=== PATIENT | female | born 1995 | race Caucasian/White ===

== ENCOUNTER 2020-01-14 20:40 | Inpatient (IN) | payer BC, SELFPAY ==
[2020-01-14] VITALS (13 sets, daily range): BP systolic 118–133; BP diastolic 73–89; PULSE 78–102; TEMP 37.3; BMI 37.8
[2020-01-14 21:22] LABS: Basophils Percent Auto 0.4 % (0.2-1.2); Eosinophils Absolute Auto 0.1 K/mm3 (0-0.3); Eosinophils Percent Auto 0.8 % (0-4.4); Hematocrit 33.7 % (37.0-47.0); Hemoglobin 11.6 g/dL (12.0-15.0); Immature Granulocyte Absolute 0.06 K/mm3 (0.00-0.031); Immature Granulocyte Percent A 0.6 % (0-0.5); Lymphocytes Absolute Auto 1.82 K/mm3 (0.9-3.2); Lymphocytes Percent Auto 17.1 % (18.3-44.2); Mean Corpuscular HGB Conc 34.4 g/dl (32-36); Mean Corpuscular Hemoglobin 30.5 pg (26-34); Mean Corpuscular Volume 88.7 fl (80-100); Monocytes Absolute Auto 0.8 K/mm3 (0.1-0.6); Monocytes Percent Auto 7.7 % (2.6-8.5); Neutrophils Absolute Auto 7.8 K/mm3 (1.3-6.7); Neutrophils Percent Auto 73.4 % (45.5-73.1); Platelet Count Result 186 k/mm3 (150-375); Red Cell Distribution Width 13.7 % (11.5-14.5); White Blood Count 10.7 K/mm3 (4.5-10.0)
--- NOTE | 2020-01-14 21:29 | LDADM ---
This patient, Drake Aiken, was admitted to Labor/Delivery/Recovery 106 on 01/14/20 at 20:40. Plans for labor, pain management and were discussed with patient. Patient/family oriented to hospital policies and general routines including ID bracelet, bed and alarms, visiting hours, pain management, procedures, bathroom and other care routines, personal items, smoking policy, room service/diet and guest tray routines, security routines, and visiting hours. Patient/Family are encouraged to report perceived risks to care and to ask questions if they do not understand what they are told or what they should do. See OBIX for further documentation.
[2020-01-15] VITALS (236 sets, daily range): BP systolic 75–141; BP diastolic 43–88; PULSE 67–131; RESP 16; TEMP 36.6–38.6; O2SAT 96–100
[2020-01-15] MEDS: LACTATED RINGERS 1,000 ML 125 ML IV CONT ×4 (00:41→12:27)
[2020-01-15] MEDS: OXYTOCIN 30 UNITS/NS 500 ML 30 UNITS/500 ML BAG 6 UNITS IV CONT (00:42)
[2020-01-15] MEDS: ACETAMINOPHEN 325 MG TABLET 650 MG PO (01:20)
--- NOTE | 2020-01-15 02:13 | P.PNAN_ITS ---
Anes - Eval Pre Procedure Procedure: labor epidural Date/Time: 01/15/20 02:13 Surgeon: Brittany Preop Diagnosis: Labor pain Pre Op Diagnosis: Leaking Fluid Patient Data Age: 24 Gender: F Height: 1.63 m Weight: 100 kg Last Vital Signs Temp 37.4 C 01/15/20 00:30 Pulse 87 01/15/20 02:13 BP 119/66 01/15/20 02:13 Pulse Ox 98 01/15/20 02:06 Allergies Allergy/AdvReac Type Severity Reaction Status Date / Time No Known Allergies Allergy Verified 12/30/19 14:30 Home Medications Medication Instructions Recorded Confirmed Type PNV cmb#95-ferrous fumarate-FA 1 tablet PO 12/30/19 History [] Laboratory Tests 01/14/20 01/14/20 01/14/20 21:09 21:09 21:09 WBC 10.7 K/mm3 H K/mm3 (4.5-10.0) RBC 3.80 M/mm3 L M/mm3 (4.2-5.4) Hgb 11.6 g/dL L g/dL (12.0-15.0) Hct 33.7 % L % (37.0-47.0) MCV 88.7 fl fl (80-100) MCH 30.5 pg pg (26-34) MCHC 34.4 g/dl g/dl (32-36) RDW 13.7 % % (11.5-14.5) Plt Count 186 k/mm3 k/mm3 (150-375) MPV 11.0 fl H fl (7.4-10.4) Immature Gran % (Auto) 0.6 % H % (0-0.5) Neut % (Auto) 73.4 % H % (45.5-73.1) Lymph % (Auto) 17.1 % L % (18.3-44.2) [place] % (Auto) 7.7 % % (2.6-8.5) Eos % (Auto) 0.8 % % (0-4.4) Baso % (Auto) 0.4 % % (0.2-1.2) Lymph # (Auto) 1.82 K/mm3 K/mm3 (0.9-3.2) [place] # (Auto) 0.8 K/mm3 H K/mm3 (0.1-0.6) Eos # (Auto) 0.1 K/mm3 K/mm3 (0-0.3) Baso # (Auto) 0.0 K/mm3 K/mm3 (0.0-0.1) Abs Immat Gran (auto) 0.06 K/mm3 H K/mm3 (0.00-0.031) Absolute Neuts (auto) 7.8 K/mm3 H K/mm3 (1.3-6.7) Absolute Nucleated RBC 0.0 K/mm3 K/mm3 (0.0-0.012) Nucleated RBC % 0.0 % % (0.0-0.2) RPR Pending Blood Type O Positive Antibody Screen Negative Patient hx anesthesia problems: none Family hx anesthesia problems: none [facility] Family History Family History (Updated 12/30/19 @ 14:32 by Simin Parsons RN) Grandparent Family history of malignant neoplasm of kidney Diabetes mellitus Hypertension Father Patient's father is in good health Sibling Patient's brother is in good health Social History Social History Smoking status: Never smoker Alcohol intake: never Substance use: never Spiritual care concerns: No Exam Day of Procedure 01/15/20 02:13 Patient weight: obese
--- NOTE | 2020-01-15 07:16 | PM.IMHP ---
H&P: HPI History of Present Illness Chief complaint: Leaking Fluid Narrative: Drake Aiken is a 24 year old female the whose last menstrual period is unknown, whose EDC is 01/29/2020 confirmed by 7 week ultrasound presented with spontaneous rupture membranes. Her was complicated by an early twin the advanced. Her is been otherwise unremarkable. Her 1hour GCT was abnormal but she was for over 4 normal under 3hour. She is negative for group B strep Review of Systems Review of Systems: All systems reviewed & are unremarkable except as noted in HPI and below PMFSH Family History Family History Grandparent Family history of malignant neoplasm of kidney Diabetes mellitus Hypertension Father Patient's father is in good health Sibling Patient's brother is in good health Social History Social History Smoking status: Never smoker Alcohol intake: never Substance use: never Spiritual care concerns: No Meds Home Medications and Allergies Home Medications Medication Instructions Recorded Confirmed Type PNV cmb#95-ferrous fumarate-FA 1 tablet PO 12/30/19 History [] Allergies Allergy/AdvReac Type Severity Reaction Status Date / Time No Known Allergies Allergy Verified 12/30/19 14:30 Vital Signs Vital Signs - 24 hr 01/14/20 21:00 01/14/20 21:07 01/14/20 21:15 Temperature 99.1 F Pulse Rate 93 102 H Blood Pressure 129/80 133/89 Pulse Oximetry 01/14/20 21:30 01/14/20 21:45 01/14/20 22:00 Temperature Pulse Rate 102 H 97 98 Blood Pressure 126/82 133/80 128/79 Pulse Oximetry 01/14/20 22:15 01/14/20 22:30 01/14/20 22:45 Temperature Pulse Rate 92 91 78 Blood Pressure 127/81 121/73 118/73 Pulse Oximetry 01/14/20 23:00 01/14/20 23:15 01/14/20 23:30 Temperature Pulse Rate 88 93 86 Blood Pressure 124/77 123/79 125/80 Pulse Oximetry 01/14/20 23:45 01/15/20 00:00 01/15/20 00:15 Temperature Pulse Rate 85 87 81 Blood Pressure 126/75 120/75 117/72 Pulse Oximetry 01/15/20 00:30 01/15/20 01:57 01/15/20 02:00 Temperature 99.3 F 99.5 F Pulse Rate 90 Blood Pressure 138/85 Pulse Oximetry 98 01/15/20 02:02 01/15/20 02:03 01/15/20 02:05 Temperature Pulse Rate 80 95 Blood Pressure 122/61 121/67 Pulse Oximetry 100 01/15/20 02:06 01/15/20 02:07 01/15/20 02:08 Temperature Pulse Rate 79 83 Blood Pressure 119/69 125/64 Pulse Oximetry 98 01/15/20 02:10 01/15/20 02:13 01/15/20 02:15 Temperature Pulse Rate 90 87 79 Blood Pressure 123/67 119/66 114/64 Pulse Oximetry 01/15/20 02:17 01/15/20 02:20 01/15/20 02:23 Temperature Pulse Rate 87 79 86 Blood Pressure 127/63 128/64 131/73 Pulse Oximetry 01/15/20 02:25 01/15/20 02:27 01/15/20 02:30 Temperature Pulse Rate 86 77 83 Blood Pressure 122/74 117/74 122/70 Pulse Oximetry 01/15/20 02:33 01/15/20 02:35 01/15/20 02:40 Temperature Pulse Rate 79 81 83 Blood Pressure 133/66 131/67 127/73 Pulse Oximetry 01/15/20 02:42 01/15/20 02:45 01/15/20 02:48 Temperature Pulse Rate 90 94 83 Blood Pressure 124/71 125/65 115/51 L Pulse Oximetry 01/15/20 02:50 01/15/20 02:52 01/15/20 02:55 Temperature Pulse Rate 97 84 92 Blood Pressure 115/61 112/77 119/57 L Pulse Oximetry 01/15/20 02:58 01/15/20 03:00 01/15/20 03:03 Temperature Pulse Rate 92 88 78 Blood Pressure 108/48 L 120/62 107/53 L Pulse Oximetry 01/15/20 03:05 01/15/20 03:09 01/15/20 03:11 Temperature Pulse Rate 82 80 84 Blood Pressure 115/62 114/55 L 103/56 L Pulse Oximetry 01/15/20 03:15 01/15/20 03:20 01/15/20 03:23 Temperature Pulse Rate 96 Blood Pressure 121/70 Pulse Oximetry 98 96 01/15/20 03:30 01/15/20 03:32 01/15/20 03:35 Temperature 99.2 F Pulse Rate 94 84 97
[2020-01-15] MEDS: AMPICILLIN 2 GM/NS 100 ML 2 GM/100 ML BAG IVPB (08:39)
[2020-01-15 09:25] LABS: Rapid Plasma Reagin Non-Reactive (NonReactive)
--- NOTE | 2020-01-15 11:29 | P.PNOB_ITS ---
OB - PN: Subj Subjective Date/time seen: 01/15/20 11:29 cx 7.5/100/-2 by rn exam temp better fhts ok OB - PN: Obj Data Labs CBC & Chem 7: 01/14/20 21:09 Labs: Laboratory Results - last 24 hr 01/14/20 01/14/20 01/14/20 21:09 21:09 21:09 WBC 10.7 H RBC 3.80 L Hgb 11.6 L Hct 33.7 L MCV 88.7 MCH 30.5 MCHC 34.4 RDW 13.7 Plt Count 186 MPV 11.0 H Immature Gran % (Auto) 0.6 H Neut % (Auto) 73.4 H Lymph % (Auto) 17.1 L [place] % (Auto) 7.7 Eos % (Auto) 0.8 Baso % (Auto) 0.4 Lymph # (Auto) 1.82 [place] # (Auto) 0.8 H Eos # (Auto) 0.1 Baso # (Auto) 0.0 Abs Immat Gran (auto) 0.06 H Absolute Neuts (auto) 7.8 H Absolute Nucleated RBC 0.0 Nucleated RBC % 0.0 RPR Non-reactive Blood Type O Positive Antibody Screen Negative OB - PN A/P Time Spent With Patient Time: Total time spent is greater than 50% in coordination of care (as documented) at patient's floor/unit and/or counseling patient:
[2020-01-15] MEDS: ONDANSETRON INJ 4 MG/2 ML VIAL IV PUSH (12:27)
[2020-01-15] MEDS: AMPICILLIN 1 GM/NS 50 ML 1 GM/50 ML BAG IVPB (12:27)
--- NOTE | 2020-01-15 16:19 | P.PNOB_ITS ---
OB - PN: Subj Subjective Date/time seen: 01/15/20 16:19 cx complete pushing fhts ok OB - PN: Obj Data Labs CBC & Chem 7: 01/14/20 21:09 Labs: Laboratory Results - last 24 hr 01/14/20 01/14/20 01/14/20 21:09 21:09 21:09 WBC 10.7 H RBC 3.80 L Hgb 11.6 L Hct 33.7 L MCV 88.7 MCH 30.5 MCHC 34.4 RDW 13.7 Plt Count 186 MPV 11.0 H Immature Gran % (Auto) 0.6 H Neut % (Auto) 73.4 H Lymph % (Auto) 17.1 L [place] % (Auto) 7.7 Eos % (Auto) 0.8 Baso % (Auto) 0.4 Lymph # (Auto) 1.82 [place] # (Auto) 0.8 H Eos # (Auto) 0.1 Baso # (Auto) 0.0 Abs Immat Gran (auto) 0.06 H Absolute Neuts (auto) 7.8 H Absolute Nucleated RBC 0.0 Nucleated RBC % 0.0 RPR Non-reactive Blood Type O Positive Antibody Screen Negative OB - PN A/P Time Spent With Patient Time: Total time spent is greater than 50% in coordination of care (as docume nted) at patient's floor/unit and/or counseling patient:
--- NOTE | 2020-01-15 16:41 | PM.OBPRVD ---
OB - Delivery Note Procedure Delivery date: 01/15/20 Intrapartal events: None Induction method: none Delivery augmentation: pitocin Delivery monitor: external FHT Route of delivery: Laceration description: Perineal - 2nd Degree Delivery repair: vicryl Specimen: No Estimated blood loss (mL): 157 Anesthesia type: Epidural Disposition: floor Baby Date of : 01/15/20 Time of : 16:26 Weeks of gestation at delivery: 38 gender: Female Weight (pounds): 6 Weight (ounces): 6 presentation: vertex position: Right Occiput Anterior Placenta delivery description: Spontaneous cord vessel description: 3 Vessels and Around Body x2 score one minute: 8 score five minutes: 9
--- NOTE | 2020-01-15 16:44 | PM.DS ---
DS: Diagnosis Admitting Diagnosis Admitting Diagnosis: term DS: Summary Time Spent with Patient Time attestation: Total time spent providing and/or coordinating discharge services: Exam Const: General: no acute distress Eyes: General: appearance normal, both eyes and all related structures Neck: Neck: supple and no JVD Thyroid: thyroid normal Resp: Effort & Inspection: normal respiratory effort Auscultation: clear to auscultation bilaterally Cardio: Rate: regular rate Rhythm: regular rhythm GI: Inspection: non-distended GI Palp: Yes Soft to palpation, No Tenderness to palpation present (GI) and No Guarding due to palpation present (GI) Auscultation: normal bowel sounds : General: Yes bladder normal to palpation External Female Exam: normal external appearance Speculum Exam - Vagina: normal vaginal discharge and No vaginal bleeding Speculum Exam - Cervix: nontender Bimanual exam- vagina & uterus: bladder normal to palpation and No Cervical tenderness present OB/external & speculum: No vaginal bleeding Skin: General skin exam: no rashes or lesions noted Extrem: General: normal to inspection and no edema Psych: Mental Status: mental status grossly normal Affect: normal affect DS: Data Data Completed and Pending Labs on day of discharge: Labs from last 24 hours 01/14/20 01/14/20 01/14/20 21:09 21:09 21:09 WBC 10.7 H RBC 3.80 L Hgb 11.6 L Hct 33.7 L MCV 88.7 MCH 30.5 MCHC 34.4 RDW 13.7 Plt Count 186 MPV 11.0 H Immature Gran % (Auto) 0.6 H Neut % (Auto) 73.4 H Lymph % (Auto) 17.1 L [place] % (Auto) 7.7 Eos % (Auto) 0.8 Baso % (Auto) 0.4 Lymph # (Auto) 1.82 [place] # (Auto) 0.8 H Eos # (Auto) 0.1 Baso # (Auto) 0.0 Abs Immat Gran (auto) 0.06 H Absolute Neuts (auto) 7.8 H Absolute Nucleated RBC 0.0 Nucleated RBC % 0.0 RPR Non-reactive Blood Type O Positive Antibody Screen Negative Discharge Plan Discharge Attending physician on discharge: Andrea Packer Discharging Clinician: Andrea Packer Patient Disposition: Home Health Service Activity: may shower, no straining, may drive after 2 weeks and pelvic rest Diet: heart healthy Patient Instructions: Antibiotic Form Stand Alone Forms: General Discharge Information Follow-up/Referrals: Andrea Packer MD [Physician] - Discharge Medications: Continued PNV cmb#95-ferrous fumarate-FA [] 28 mg iron- 800 mcg Tablet 1 tablet PO RF: 0 Date of admission: 01/14/20 20:40 Primary Care Provider: UNKNOWN,DOCTOR Admitting Provider: Andrea Packer Attending physician on admission: Andrea Packer
[2020-01-15] MEDS: OXYTOCIN 30 UNITS/NS 500 ML 30 UNITS/500 ML BAG 125 UNITS IV CONT (16:47)
[2020-01-15] MEDS: IBUPROFEN 600 MG TABLET PO ×2 (17:00→23:26)
[2020-01-15] MEDS: BENZOCAINE 20% AER SPR (*SP) 56 GM CAN 1 SPRAY TOPICAL (18:54)
[2020-01-15] MEDS: WITCH HAZEL 40 PADS 1 PAD TOPICAL (18:54)
--- NOTE | 2020-01-15 19:14 | OBPPTRN ---
Patient transferred to post room # 282 via wheelchair with baby in bassinet. Support person present. Oriented to unit, room, information board, rooming in, admission packet and security measures. Patient verbalizes understanding.
--- NOTE | 2020-01-15 19:45 | PC.NURSE ---
removed vaginal packing at 1944 on 01/15/20
[2020-01-16] MEDS: IBUPROFEN 600 MG TABLET PO ×2 (04:49→14:53)
[2020-01-16 05:38] LABS: Hematocrit 27.4 % (37.0-47.0); Hemoglobin 9.2 g/dL (12.0-15.0)
--- NOTE | 2020-01-16 06:48 | P.PNOB_ITS ---
OB - PN: Subj Subjective Date/time seen: 01/16/20 06:48 Patient comments: no complaints and pain well controlled baby status: doing well and nursing well OB - PN: Obj Data Labs CBC & Chem 7: 01/16/20 04:47 Labs: Laboratory Results - last 24 hr 01/14/20 01/16/20 21:09 04:47 Hgb 9.2 L Hct 27.4 L RPR Non-reactive OB - PN A/P Plan day: 1 Plan: routine care, discharge home and follow up 6 weeks Time Spent With Patient Time: Total time spent is greater than 50% in coordination of care (as documented) at patient's floor/unit and/or counseling patient: Time with patient: less than 15 minutes Review of Systems Review of Systems: All systems reviewed & are unremarkable except as noted in HPI and below Exam Const: General: no acute distress Eyes: General: appearance normal, both eyes and all related structures Neck: Neck: supple and no JVD Thyroid: thyroid normal Resp: Effort & Inspection: normal respiratory effort Auscultation: clear to auscultation bilaterally Cardio: Rate: regular rate Rhythm: regular rhythm GI: Inspection: normal to inspection (fundus firm) : General: Yes bladder normal to palpation External Female Exam: normal external appearance Speculum Exam - Vagina: normal vaginal discharge and No vaginal bleeding Speculum Exam - Cervix: nontender Bimanual exam- vagina & uterus: bladder normal to palpation and No Cervical tenderness present OB/ external & speculum: No vaginal bleeding Skin: General skin exam: no rashes or lesions noted Extrem: General: normal to inspection and no edema Psych: Mental Status: mental status grossly normal Affect: normal affect
[2020-01-16 07:40] VITALS: BP 125/82; PULSE 90; RESP 18; TEMP 36.8; O2SAT 100
[2020-01-16] MEDS: MULTIVIT/MIN/PREN/FOL AC/IRON TABLET 1 TAB PO (08:15)
[2020-01-16] MEDS: DIBUCAINE 1% OINTMENT 30 GM TUBE 1 APPLIC TOPICAL (08:15)
[2020-01-16] MEDS: DOCUSATE SODIUM 100 MG CAPSULE PO ×2 (08:16→16:58)
[2020-01-16] MEDS: POLYSACCHARIDE IRON COMPLEX 150 MG CAPSULE PO ×2 (08:16→16:58)
--- NOTE | 2020-01-16 12:45 | PC.NURSE ---
Mother called out for assist with feeding. Mother states is sleepy and is unable to latch without shield. Mother is attempting to breast each feeding, supplementing and pumping. Discussed nipple shield precautions and possible complications. Instructions given on application and cleaning of shield. Patient able to return demonstration on proper application of shield. Discussed the need for regular pumping if infant continues to nurse with the shield. Patient verbalizes understanding. With shield in place is attempt to breast, mother is able to independently latch infant with appropriate positioning/alignment using nipple shield. is sleepy and makes a weak effort to suckle. Small amounts of formula to shield to entice to suckle. Short bursts of rhythmic draws noted. Mother denies any nipple discomfort, is feeding as required and waking to feed if needed. Infant continues with ineffective feeding and requires 20 mls supplementation after each . Mother will continue to pump and offer EBM as available as part of supplement. is currently meeting outcomes for weight, output, jaundice and feeding frequencies. Mother states she feels comfortable with current feeding plan of bottle/ at home. Reviewed transition to breast milk, signs of adequate intake, and engorgement/relief. Instructed to call ICP if intake/output less than required. Reviewed regular medications mother is taking. Information provided per [facility]. Reviewed community resources on the [facility] website and in the Mom/Baby guide. Information on outpatient services provided. Mother has no further questions at this time.
--- NOTE | 2020-01-16 12:45 | PC.NURSE ---
Mother is able to independently latch with appropriate positioning/alignment using nipple shield. She denies any nipple discomfort, is feeding as required and waking to feed if needed. Infant continues with ineffective feeding and requires 30 mls supplementation after each . Infant is more eager with attempts and duration. Mother will continue to pump and offer EBM as available as part of supplement. Infant is currently meeting outcomes for weight, output, jaundice and feeding frequencies. Mother states she feels comfortable with current feeding plan of bottle//pumping at home. Reviewed transition to breast milk, signs of adequate intake, and engorgement/relief. Instructed to call ICP if intake/output less than required. Reviewed regular medications mother is taking. Information provided per [facility]. Reviewed community resources on the [facility] website and in the Mom/Baby guide. Information on outpatient services provided. Mother has no further questions at this time. Discussed weaning from supplementation, advised feeding should be observed by ICP, WIC or appointment her with LC before discontinuing supplement.
--- NOTE | 2020-01-16 14:11 | WPDANLDPN2 ---
Anes-Prog Note L&D Date/Time: 01/16/20 14:11 Comfortable throughout: labor and delivery Neuraxial method: epidural Epidural/Spinal procedure site: clean & non-tender Neuro status: Neuro function grossly intact. Cardiovascular status: normal Respiratory status: normal Airway patency: baseline Mental status: baseline Post-Op hydration status: normal Vital Signs: Last Vital Signs Temp 36.8 C 01/16/20 07:40 Pulse 90 01/16/20 07:40 Resp 18 01/16/20 07:40 BP 125/82 01/16/20 07:40 Pulse Ox 100 01/16/20 07:40 I/O: Intake & Output 01/15/20 01/16/20 01/16/20 23:59 07:59 15:59 Intake Total 1650 Output Total 257 Balance 1393 Post-procedural complaints: none Patient feedback: Patient satisfied with anesthetic care.
[2020-01-16] MEDS: WITCH HAZEL 40 PADS 1 PAD TOPICAL (16:58)
[2020-01-16] MEDS: BENZOCAINE 20% AER SPR (*SP) 56 GM CAN 1 SPRAY TOPICAL (16:58)
[2020-01-18 09:51] VITALS: BP 141/94; PULSE 81; RESP 20; TEMP 37.2
== END 2020-01-16 19:40 | disposition home health service (06) | DRG 807 ==
LOC: ANHLDR 21:37 → ANHOB2 01-15 19:24
PROVIDERS: Admitting Provider Obstetrics & Gynecology; Visit Provider Obstetrics & Gynecology
DX: O69.82X0 Labor and delivery complicated by other cord entanglement, without compression, not applicable or unspecified (principal); Z37.0 Single live birth; Z3A.38 38 weeks gestation of pregnancy; O36.8330 Maternal care for abnormalities of the fetal heart rate or rhythm, third trimester, not applicable or unspecified; O70.1 Second degree perineal laceration during delivery
CPT/HCPCS: 36415; 85014; 85018; 85025; 86592; 86850; 86900; 86901; A9270; J0131; J0290; J2405; J2590; J2795; J7120

== ENCOUNTER 2022-05-16 23:56 | Emergency (ER) | payer BC, SELFPAY ==
[2022-05-17 00:09] VITALS: BP 149/90; PULSE 83; RESP 17; TEMP 36.5; O2SAT 100
--- NOTE | 2022-05-17 00:13 | ED.PREGNANCY ---
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 Reports she had a positive test a couple of days ago. She started to have some spotting today which turned into more heavy bleeding tonight. Dr. Josephine Baron is her OB. Denies fever, dysuria or vomiting. <MARCELINO Santo Last Filed: 05/17/22 01:17> Related Data Home medications: Home Medications Medication Instructions Recorded Confirmed vit no.95-ferrous 1 tablet PO 12/30/19 fumarate 28 mg-folic acid 800 mcg tablet () <Keerthi Moran PA-C - Last Filed: 05/17/22 01:17> Allergies/Adverse reactions: Allergies Allergy/AdvReac Type Severity Reaction Status Date / Time No Known Allergies Allergy Verified 05/02/20 08:12 <MARCELINO Santo Last Filed: 05/17/22 01:17> Review of Systems Review of Systems: CONSTITUTIONAL: Denies fever GASTROINTESTINAL: Reports pelvic cramping GENITOURINARY: Denies dysuria <MARCELINO Santo Last Filed: 05/17/22 01:17> All systems reviewed & are unremarkable except as noted in HPI and below <MARCELINO Santo Last Filed: 05/17/22 01:17> [facility] Past Medical History Medical History: Medical History (Updated 05/17/22 @ 01:12 by Keerthi Moran PA-C) History of hypothyroidism <Keerthi Moran PA-C - Last Filed: 05/17/22 01:17> Family History Family History: Family History Grandparent Family history of malignant neoplasm of kidney Diabetes mellitus Hypertension Father Patient's father is in good health Sibling Patient's brother is in good health <Keerthi Moran PA-C - Last Filed: 05/17/22 01:17> Social History Social History: Social History Smoking status: Never smoker Alcohol intake: never Substance use: never Spiritual care concerns: No <Keerthi Moran PA-C - Last Filed: 05/17/22 01:17> Exam Narrative: GENERAL: Well-appearing, well-nourished, and in no acute distress. HEAD: Normocephalic, atraumatic. EYES: EOMI. CHEST: Clear to auscultation. No respiratory distress. No wheezes rales or rhonchi HEART: Regular rate and rhythm. No murmur heard. Normal peripheral pulses. ABDOMEN: Soft, nontender, nondistended, normal active bowel sounds. EXTREMITIES: Normal range of motion. No edema. SKIN: Warm, dry, no rash. NEURO: No focal deficits. Alert and oriented x3. PSYCH: Normal mood and affect PELVIC: Normal external genitalia. Normal appearing cervix, closed. 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 [] <Thierry Lackey DO - Last Filed: 05/17/22 01:49> Vital Signs Vital signs: Vital Signs Temperature 97.7 F 05/17/22 00:09 Pulse Rate 83 05/17/22 00:09 Respiratory Rate 17 05/17/22 00:09 Blood Pressure 149/90 H 05/17/22 00:09 Pulse Oximetry 100 05/17/22 00:09 Oxygen Delivery Room Air 05/17/22 00:09 Temperature 97.7 F 05/17/22 00:09 Pulse Rate 86 05/17/22 01:33 Respiratory Rate 18 05/17/22 01:33 Blood Pressu
[2022-05-17 00:30] LABS: Basophils Absolute Auto 0.1 K/mm3 (0.0-0.1); Basophils Percent Auto 1.3 % (0.2-1.2); Eosinophils Absolute Auto 0.3 K/mm3 (0-0.3); Eosinophils Percent Auto 3.3 % (0-4.4); Hematocrit 45.5 % (37.0-47.0); Hemoglobin 14.8 g/dL (12.0-15.0); Immature Granulocyte Absolute 0.02 K/mm3 (0.00-0.031); Immature Granulocyte Percent A 0.2 % (0-0.5); Lymphocytes Absolute Auto 3.02 K/mm3 (0.9-3.2); Lymphocytes Percent Auto 33.6 % (18.3-44.2); Mean Corpuscular HGB Conc 32.5 g/dl (32-36); Mean Corpuscular Hemoglobin 29.1 pg (26-34); Mean Corpuscular Volume 89.6 fl (80-100); Mean Platelet Volume 9.8 fl (7.4-10.4); Monocytes Absolute Auto 0.7 K/mm3 (0.1-0.6); Monocytes Percent Auto 8.2 % (2.6-8.5); Neutrophils Absolute Auto 4.8 K/mm3 (1.3-6.7); Neutrophils Percent Auto 53.4 % (45.5-73.1); Platelet Count Result 257 k/mm3 (150-375); Red Blood Count 5.08 M/mm3 (4.2-5.4); Red Cell Distribution Width 13.4 % (11.5-14.5)
[2022-05-17 01:33] VITALS: BP 139/79; PULSE 86; RESP 18; O2SAT 98
== END 2022-05-17 01:36 | disposition home or self-care (01) ==
PROVIDERS: Physician Assistant; Emergency Provider Emergency Medicine; PCP Internal Medicine
DX: O20.9 Hemorrhage in early pregnancy, unspecified (principal); O99.281 Endocrine, nutritional and metabolic diseases complicating pregnancy, first trimester; E03.9 Hypothyroidism, unspecified; Z3A.00 Weeks of gestation of pregnancy not specified
CPT/HCPCS: 36415; 81025; 84702; 85025; 85461; 99284

== ENCOUNTER 2023-10-26 11:27 | Outpatient (CLI) | payer BC, SELFPAY ==
--- NOTE | ~2023-10-26 | XR_ITS ---
EXAMINATION: XR hysterosalpingogram DATE: 10/26/2023 12:05 INDICATION: Infertility TECHNIQUE: Multiple fluoroscopic images were obtained during contrast infusion into the endometrial c anal of the uterus by the primary physician. Fluoroscopy exposure time was 0.6 minutes. A total of 3 fluoroscopic images were recorded. Total DAP was 9.121 Gycm^2 FINDINGS: The uterine cavity demonstrates normal morphology. The fallopian tubes are normal in caliber and pat ent bilaterally. There is normal spillage of contrast into the peritoneum on both sides. IMPRESSION: 1. Normal hysterosalpingogram. Reviewed, dictated and finalized at location A. 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
== END 2023-10-26 11:28 | disposition home or self-care (01) ==
PROVIDERS: PCP Nurse Practitioner Family; Visit Provider Obstetrics & Gynecology
DX: N97.0 Female infertility associated with anovulation (principal)
CPT/HCPCS: 58340; 74740; Q9966

== ENCOUNTER 2024-03-19 11:08 | Emergency (ER) | payer OTHER, SELFPAY ==
[2024-03-19 11:35] VITALS: BP 142/101; PULSE 110; RESP 18; TEMP 36.7; O2SAT 100
--- NOTE | 2024-03-19 11:43 | ED.GENADULT ---
HPI - General Adult General Chief complaint: Unspecified Stated complaint: 7 weeks wants checked out Time Seen by Provider: 03/19/24 11:32 History of Present Illness HPI narrative: 28-year-old female present to the emergency department for evaluation of her current . Patient has had 2 miscarriages but is currently and is approximately 7 weeks . Patient did have outpatient ultrasound confirming an IUP by her OB Gyne. Patient states that she has anxiety related to her previous miscarriages so she did take another test today noticed that the color strep was transmission mechanic today than previous so patient became concerned. Patient has been having intermittent abdominal cramping but denies any current abdominal cramping. Patient denies any pain with her urination. Patient denies any current vaginal bleeding. Related Data Home Medications Medication Instructions Recorded Confirmed vit no.95-ferrous 1 tablet PO 12/30/19 fumarate 28 mg-folic acid 800 mcg tablet () Allergies Allergy/AdvReac Type Severity Reaction Status Date / Time No Known Allergies Allergy Verified 05/02/20 08:12 Review of Systems Review of Systems: All systems reviewed & are unremarkable except as noted in HPI and below PMFSH Past Medical History Medical History (Updated 03/19/24 @ 12:33 by Boom Lackey MD) History of hypothyroidism Family History Family History Grandparent Family history of malignant neoplasm of kidney Diabetes mellitus Hypertension Father Patient's father is in good health Sibling Patient's brother is in good health Social History Social History Smoking status: Never smoker Alcohol intake: never Substance use: never Spiritual care concerns: No Exam Narrative: APPEARANCE: Well appearing, no pain, no distress, well-nourished. HEAD: normocephalic, atraumatic. EYES: PERRLA/EOMI, conjunctivae clear. NOSE: Normal no drainage EARS:TMS clear with good light reflex. THROAT: Pharynx clear, no exudate. NECK: Supple. No adenopathy, no masses. RESPIRATORY: Airway patent, respirations nonlabored. Clear to auscultation bilaterally, no rales, rhonchi, wheezing. CARDIOVASCULAR: Regular rate and rhythm without murmurs rubs or gallops. ABDOMINAL: Soft, nontender, nondistended, normal bowel sounds MUSCULOSKELETAL: Moves all extremities. Strength/ROM intact, No edema, No calf tenderness. NEURO: Alert. Cranial nerves II through XII intact. SKIN: Warm, dry. Normal Color Course Vital Signs Vital signs: Vital Signs Temperature 98.1 F 03/19/24 11:35 Pulse Rate 110 H 03/19/24 11:35 Respiratory Rate 18 03/19/24 11:35 Blood Pressure 142/101 H 03/19/24 11:35 Pulse Oximetry 100 03/19/24 11:35 Temperature 98.1 F 03/19/24 11:35 Pulse Rate 110 H 03/19/24 11:35 Respiratory Rate 18 03/19/24 11:35 Blood Pressure 142/101 H 03/19/24 11:35 Pulse Oximetry 100 03/19/24 11:35 Medical Decision Making MDM Narrative Medical decision making narrative: 28-year-old female presenting to the emergency department for evaluation for concern of a transmission mechanic than expected test. Patient denies any vaginal bleeding or uterine cramping. Patient is afebrile with no leukocytosis and a stable hemoglobin of 14.4, no acute abnormalities on the patient's CMP. UA was positive for leuk esterase and did have high bacteria. Patient was started on Macrobid. Bedside ultrasound did show a pole within the uterus but transabdominally no heart rate was detected. Patient is approximately 7 weeks . Patient's beta hCG was greater than 15,000. Patient was updated the results of the workup was encouraged close follow-up with OB Gyne Differential Diagnosis Differential Diagnosis: Miscarriage, UTI, vaginal bleeding, early p
[2024-03-19 12:12] LABS: Basophils Percent Auto 0.4 % (0.2-1.2); Eosinophils Absolute Auto 0.1 K/mm3 (0-0.3); Eosinophils Percent Auto 0.9 % (0-4.4); Hematocrit 42.9 % (37.0-47.0); Hemoglobin 14.4 g/dL (12.0-15.0); Immature Granulocyte Absolute 0.03 K/mm3 (0.00-0.031); Immature Granulocyte Percent A 0.3 % (0-0.5); Lymphocytes Absolute Auto 1.52 K/mm3 (0.9-3.2); Lymphocytes Percent Auto 16.8 % (18.3-44.2); Mean Corpuscular HGB Conc 33.6 g/dl (32-36); Mean Corpuscular Hemoglobin 29.3 pg (26-34); Mean Corpuscular Volume 87.4 fl (80-100); Mean Platelet Volume 9.6 fl (7.4-10.4); Monocytes Absolute Auto 0.6 K/mm3 (0.1-0.6); Monocytes Percent Auto 6.8 % (2.6-8.5); Neutrophils Absolute Auto 6.8 K/mm3 (1.3-6.7); Neutrophils Percent Auto 74.8 % (45.5-73.1); Platelet Count Result 209 k/mm3 (150-375); Red Blood Count 4.91 M/mm3 (4.2-5.4); Red Cell Distribution Width 13.4 % (11.5-14.5); White Blood Count 9.1 K/mm3 (4.5-10.0)
[2024-03-19 12:18] LABS: Appearance Urine Cloudy (Clear); Bacteria Urine 2+ /hpf; Bilirubin Urine Negative (Negative); Blood Urine Negative (Negative); Color Urine Yellow (Yellow); Glucose Urine UA Negative (Negative); Ketones Urine Negative (Negative); Leukocyte Esterase Ur 1+ LEU/UL (Negative); Nitrate Urine Negative (Negative); Protein Urine Negative (Negative); Squamous Epithelial Cell Urine Moderate /hpf (Few); Urobilinogen Urine 0.2 mg/dL (<2.0); WBC Urine 21-50 /hpf (0-3); pH Urine 6.5 (5.0-9.0)
[2024-03-19 12:22] LABS: Alanine Aminotransferase 21 U/L (6-35); Albumin Level 4.4 g/dL (3.5-5.1); Alkaline Phosphatase 85 U/L (38-126); Anion Gap 9 mmol/L (4-12); Aspartate Amino Transferase 23 U/L (14-36); Bilirubin,Total 0.5 mg/dL (0.2-1.3); Blood Urea Nitrogen 7 mg/dL (7-17); Calcium 9.2 mg/dL (8.4-10.2); Carbon Dioxide 22 mmol/L (22-30); Chloride 107 mmol/L (98-107); Estimated CRCL calculation 90 ml/min; Estimated Glomerular Filt Rate > 60; Glucose 131 mg/dL (65-110); Potassium 3.8 mmol/L (3.4-5.0); Sodium 138 mmol/L (137-145)
[2024-03-19 12:24] LABS: Add Urine Microscopic? YES
[2024-03-19] MEDS: NITROFURANTOIN MONOHYD MACROCR 100 MG CAP PO (12:49)
== END 2024-03-19 13:01 | disposition home or self-care (01) ==
PROVIDERS: Emergency Provider Emergency Medicine; PCP Nurse Practitioner Family
DX: O23.41 Unspecified infection of urinary tract in pregnancy, first trimester (principal); N39.0 Urinary tract infection, site not specified; Z3A.01 Less than 8 weeks gestation of pregnancy
CPT/HCPCS: 36415; 80053; 81001; 84702; 85025; 87086; 87088; 99283; A9270

== ENCOUNTER 2024-04-09 10:11 | Emergency (ER) | payer OTHER, SELFPAY ==
--- NOTE | ~2024-04-09 | US_ITS ---
EXAMINATION: US OB <= 14 weeks fetus DATE: 04/09/2024 11:56 INDICATION: Vaginal spotting. TECHNIQUE: Real-time transabdominal pelvic ultrasound was performed. COMPARISON: None. FINDINGS: The uterus measures 11.5 x 5.7 x 7.6 cm. There is an intrauterine gestational sac with mean diameter of 4.6 cm. A yolk sac is identified. The crown rump length measures 3.5 cm. This measurement c orrelates with an estimated gestational age of 10 weeks and 3 day(s) (+/-) 1 week and 0 day(s). heart motion is identified measuring 169 beats per minute (bpm) by M-mode Doppler. There is a small subchorionic hematoma. The right ovary measures 1.5 x 1.0 x 1.4 cm. The left ovary measures 2.5 x 1.4 x 2.6 cm. There is no free fluid in the pelvis. IMPRESSION: 1. Single living intrauterine gestation with estimated date of delivery of 11/02/2024. 2. Small subchorionic hematoma. Reviewed, dictated and finalized at location E. IMPRESSION: 1. Single living intrauterine gestation with estimated date of delivery of 10/06. 2. Small subchorionic hematoma.
[2024-04-09 10:33] VITALS: BP 124/99; PULSE 100; RESP 18; TEMP 37.1; O2SAT 97
--- NOTE | 2024-04-09 10:46 | ED.GENADULT ---
HPI - General Adult General Chief complaint: Vaginal Bleeding Stated complaint: +IUP 10WKS SPOTTING Time Seen by Provider: 04/09/24 10:35 History of Present Illness HPI narrative: Patient is a 28-year-old female who presents ER with vaginal spotting. Reports she had some brown discharge last night that also became bright pink this morning. Mild cramping in the pelvis. Reports 1 week ago she had an ultrasound that showed an IUP and was also diagnosed with a UTI. She is currently on Keflex. Previously she had been on Macrobid. She reports she has had some intermittent spotting throughout this . She is a with SAB 2. Chart review shows blood type O positive. She did not have intercourse last night to cause any bleeding or irritation. Related Data Home Medications Medication Instructions Recorded Confirmed vit no.95-ferrous 1 tablet PO 12/30/19 fumarate 28 mg-folic acid 800 mcg tablet () Allergies Allergy/AdvReac Type Severity Reaction Status Date / Time No Known Allergies Allergy Verified 05/02/20 08:12 Review of Systems Review of Systems: All systems reviewed & are unremarkable except as noted in HPI and below Constitutional: Constitutional: Reports no additional constitutional complaints Cardiovascular: Cardiovascular: Reports no additional cardiovascular complaints Respiratory: Respiratory: Reports no additional respiratory complaints Genitourinary: Genitourinary: Reports abnormal vaginal bleeding, Denies hematuria, Denies nocturia, Denies dysuria and Reports pelvic pain Musculoskeletal: Musculoskeletal: Reports no additional musculoskeletal complaints [facility] Past Medical History Medical History (Updated 04/09/24 @ 12:57 by Murray Dozier MD) History of hypothyroidism Family History Family History Grandparent Family history of malignant neoplasm of kidney Diabetes mellitus Hypertension Father Patient's father is in good health Sibling Patient's brother is in good health Social History Social History Smoking status: Never smoker Alcohol intake: never Substance use: never Spiritual care concerns: No Exam Narrative: GENERAL: Well-appearing, morbidly obese, and in no acute distress. HEAD: Normocephalic, atraumatic. ENT: Mucous membranes moist. CHEST: Clear to auscultation. No respiratory distress. HEART: Regular rate and rhythm. Normal peripheral pulses. ABDOMEN: Soft, nontender, nondistended. PELVIC: Scant blood from the cervix. No vaginal discharge. Cervix otherwise normal in appearance and closed. EXTREMITIES: Normal range of motion. No edema. NEURO: Alert and oriented x3. PSYCH: Normal mood and affect. Course Course Emergency Course: Patient informed of ultrasound results. Given reassurance and education in regards the subchorionic hematoma. Vital Signs Vital signs: Vital Signs Temperature 98.8 F 04/09/24 10:33 Pulse Rate 100 04/09/24 10:33 Respiratory Rate 18 04/09/24 10:33 Blood Pressure 124/99 H 04/09/24 10:33 Pulse Oximetry 97 04/09/24 10:33 Temperature 98.8 F 04/09/24 10:33 Pulse Rate 100 04/09/24 10:33 Respiratory Rate 18 04/09/24 10:33 Blood Pressure 124/99 H 04/09/24 10:33 Pulse Oximetry 97 04/09/24 10:33 Medical Decision Making Vital Signs Vital Signs: Vital Signs Temperature 98.8 F 04/09/24 10:33 Pulse Rate 100 04/09/24 10:33 Respiratory Rate 18 04/09/24 10:33 Blood Pressure 124/99 H 04/09/24 10:33 Pulse Oximetry 97 04/09/24 10:33 Temperature 98.8 F 04/09/24 10:33 Pulse Rate 100 04/09/24 10:33 Respiratory Rate 18 04/09/24 10:33 Blood Pressure 124/99 H 04/09/24 10:33 Pulse Oximetry 97 04/09/24 10:33 Imaging Data Radiologist's impression: ITS Impressions Ultrasound 04/09/24 12:04 I
== END 2024-04-09 13:05 | disposition home or self-care (01) ==
PROVIDERS: Emergency Provider Emergency Medicine; PCP Nurse Practitioner Family
DX: O46.8X1 Other antepartum hemorrhage, first trimester (principal); O99.281 Endocrine, nutritional and metabolic diseases complicating pregnancy, first trimester; E03.9 Hypothyroidism, unspecified; Z3A.10 10 weeks gestation of pregnancy; Z79.899 Other long term (current) drug therapy
CPT/HCPCS: 76801; 99284

== ENCOUNTER 2024-07-22 18:15 | Outpatient (CLI) | payer OTHER, SELFPAY ==
[2024-07-22 18:47] VITALS: BP 146/84; PULSE 95
[2024-07-22 19:00] LABS: Basophils Percent Auto 0.3 % (0.2-1.2); Eosinophils Absolute Auto 0.1 K/mm3 (0-0.3); Eosinophils Percent Auto 0.8 % (0-4.4); Hematocrit 31.9 % (37.0-47.0); Hemoglobin 11.1 g/dL (12.0-15.0); Immature Granulocyte Absolute 0.03 K/mm3 (0.00-0.031); Immature Granulocyte Percent A 0.3 % (0-0.5); Lymphocytes Absolute Auto 2.14 K/mm3 (0.9-3.2); Lymphocytes Percent Auto 20.1 % (18.3-44.2); Mean Corpuscular HGB Conc 34.8 g/dl (32-36); Mean Corpuscular Hemoglobin 30.6 pg (26-34); Mean Corpuscular Volume 87.9 fl (80-100); Monocytes Absolute Auto 0.8 K/mm3 (0.1-0.6); Monocytes Percent Auto 7.4 % (2.6-8.5); Neutrophils Absolute Auto 7.6 K/mm3 (1.3-6.7); Neutrophils Percent Auto 71.1 % (45.5-73.1); Platelet Count Result 215 k/mm3 (150-375); Red Blood Count 3.63 M/mm3 (4.2-5.4); Red Cell Distribution Width 14.4 % (11.5-14.5); White Blood Count 10.7 K/mm3 (4.5-10.0)
[2024-07-22 19:01] VITALS: BP 146/81; PULSE 87
[2024-07-22 19:10] LABS: Alanine Aminotransferase 13 U/L (6-35); Albumin Level 3.6 g/dL (3.5-5.1); Alkaline Phosphatase 100 U/L (38-126); Anion Gap 5 mmol/L (4-12); Aspartate Amino Transferase 16 U/L (14-36); Bilirubin,Total 0.4 mg/dL (0.2-1.3); Blood Urea Nitrogen 5 mg/dL (7-17); Calcium 9.4 mg/dL (8.4-10.2); Carbon Dioxide 24 mmol/L (22-30); Chloride 106 mmol/L (98-107); Estimated Glomerular Filt Rate > 60; Glucose 99 mg/dL (65-110); Potassium 3.1 mmol/L (3.4-5.0); Sodium 135 mmol/L (137-145); Uric Acid 3.9 mg/dL (2.5-7.5)
[2024-07-22 19:11] LABS: Total Protein Urine Random 17 mg/dL; Ur Ttl Prot Creatinine Ratio 0.65 mg/mg (0-0.20)
[2024-07-22 19:16] VITALS: BP 142/77; PULSE 85
[2024-07-22 19:29] LABS: Add Urine Microscopic? NO; Appearance Urine Clear (Clear); Bilirubin Urine Negative (Negative); Blood Urine Negative (Negative); Color Urine Yellow (Yellow); Glucose Urine UA Negative (Negative); Ketones Urine Negative (Negative); Leukocyte Esterase Ur Negative LEU/UL (Negative); Nitrate Urine Negative (Negative); Protein Urine Negative (Negative); Specific Grav Ur 1.003 (1.001-1.035); Urobilinogen Urine 0.2 mg/dL (<2.0)
[2024-07-22 19:31] VITALS: BP 135/72; PULSE 82
[2024-07-22 19:46] VITALS: BP 137/73; PULSE 85
--- NOTE | 2024-07-23 08:14 | P.PNOB_ITS ---
OB - Triage/Final Diagnosis Visit Information Reason for evaluation: other (gestational hypertension) Comments/Additional reasons for admission: I have assessed the risk for this patient, Drake Starks, and determined that she would benefit from observation care. Evaluation Laboratory results: Laboratory Tests 07/22/24 18:47 WBC 10.7 H RBC 3.63 L Hgb 11.1 L D Hct 31.9 L MCV 87.9 MCH 30.6 MCHC 34.8 RDW 14.4 Plt Count 215 MPV 10.0 Immature Gran % (Auto) 0.3 Neut % (Auto) 71.1 Lymph % (Auto) 20.1 [place] % (Auto) 7.4 Eos % (Auto) 0.8 Baso % (Auto) 0.3 Lymph # (Auto) 2.14 [place] # (Auto) 0.8 H Eos # (Auto) 0.1 Baso # (Auto) 0.0 Abs Immat Gran (auto) 0.03 Absolute Neuts (auto) 7.6 H Absolute Nucleated RBC 0.000 Nucleated RBC % 0.0 Sodium 135 L Potassium 3.1 L Chloride 106 Carbon Dioxide 24 Anion Gap 5 BUN 5 L Creatinine 0.60 L Estim Creat Clear Calc Not Reportable Estimated GFR > 60 Glucose 99 Uric Acid 3.9 Calcium 9.4 Total Bilirubin 0.4 AST 16 ALT 13 Alkaline Phosphatase 100 Total Protein 7.0 Albumin 3.6 Urine Color Yellow Urine Appearance Clear Urine pH 7.0 Ur Specific [place] 1.003 Urine Protein Negative Urine Glucose (UA) Negative Urine Ketones Negative Ur Blood (Man) Negative Urine Nitrate Negative Urine Bilirubin Negative Urine Urobilinogen 0.2 Leukocyte Esterase Rfl Negative U Random Total Protein 17 Urine Creatinine 26.0 Protein/Creat Ratio 2 0.65 H Vital signs: Vital Signs - 24 hr 07/22/24 18:47 07/22/24 19:01 07/22/24 19:16 Pulse Rate 95 87 85 Blood Pressure 146/84 H 146/81 H 142/77 H 07/22/24 19:31 07/22/24 19:46 Pulse Rate 82 85 Blood Pressure 135/72 137/73
== END 2024-07-22 20:15 | disposition home or self-care (01) ==
LOC: ANHOBOP 18:22 → ANHOBPP 18:29
PROVIDERS: Obstetrics & Gynecology Gynecology; PCP Nurse Practitioner Family; Visit Provider Obstetrics & Gynecology
DX: O13.9 Gestational [pregnancy-induced] hypertension without significant proteinuria, unspecified trimester (principal); Z3A.00 Weeks of gestation of pregnancy not specified
CPT/HCPCS: 36415; 80053; 81003; 82570; 84156; 84550; 85025; 99199

== ENCOUNTER 2024-07-23 17:50 | Outpatient (CLI) | payer OTHER, SELFPAY ==
[2024-07-23 18:02] VITALS: BMI 37.4
[2024-07-23 18:05] LABS: Collection Time Urine 24 HOURS
[2024-07-23 18:06] LABS: Total Volume 24 Hour Urine 2600 ml
[2024-07-23 18:15] LABS: Creatinine Clearance Urine 135.9 ml/min (75-125); Creatinine Urine 52.8 mg/dL; Patient Weight 218 Lbs; Total Protein Urine 24 Hr 468 mg/24hr (28-141); Total Protein Urine Random 18 mg/dL
== END 2024-07-23 17:51 | disposition home or self-care (01) ==
LOC: ANHOBOP 17:59
PROVIDERS: PCP Nurse Practitioner Family; Referring Provider Obstetrics & Gynecology Gynecology; Visit Provider Obstetrics & Gynecology Gynecology
DX: O13.9 Gestational [pregnancy-induced] hypertension without significant proteinuria, unspecified trimester (principal); Z3A.00 Weeks of gestation of pregnancy not specified
CPT/HCPCS: 81050; 82575; 84156

== ENCOUNTER 2024-10-05 15:50 | Outpatient (CLI) | payer BC, SELFPAY ==
[2024-10-05 16:31] VITALS: BP 134/69; PULSE 91
[2024-10-05 16:40] LABS: Basophils Percent Auto 0.3 % (0.2-1.2); Eosinophils Absolute Auto 0.1 K/mm3 (0-0.3); Eosinophils Percent Auto 1.1 % (0-4.4); Hematocrit 32.2 % (37.0-47.0); Hemoglobin 10.9 g/dL (12.0-15.0); Immature Granulocyte Absolute 0.04 K/mm3 (0.00-0.031); Immature Granulocyte Percent A 0.4 % (0-0.5); Lymphocytes Absolute Auto 1.69 K/mm3 (0.9-3.2); Lymphocytes Percent Auto 17.4 % (18.3-44.2); Mean Corpuscular HGB Conc 33.9 g/dl (32-36); Mean Corpuscular Hemoglobin 29.9 pg (26-34); Mean Corpuscular Volume 88.5 fl (80-100); Mean Platelet Volume 10.5 fl (7.4-10.4); Monocytes Absolute Auto 0.7 K/mm3 (0.1-0.6); Monocytes Percent Auto 6.7 % (2.6-8.5); Neutrophils Absolute Auto 7.2 K/mm3 (1.3-6.7); Neutrophils Percent Auto 74.1 % (45.5-73.1); Platelet Count Result 244 k/mm3 (150-375); Red Blood Count 3.64 M/mm3 (4.2-5.4); White Blood Count 9.7 K/mm3 (4.5-10.0)
[2024-10-05 16:46] VITALS: BP 130/68; PULSE 83
[2024-10-05 16:54] LABS: Alanine Aminotransferase 13 U/L (6-35); Albumin Level 3.6 g/dL (3.5-5.1); Alkaline Phosphatase 145 U/L (38-126); Anion Gap 4 mmol/L (4-12); Aspartate Amino Transferase 17 U/L (14-36); Bilirubin,Total 0.6 mg/dL (0.2-1.3); Blood Urea Nitrogen 5 mg/dL (7-17); Calcium 9.7 mg/dL (8.4-10.2); Carbon Dioxide 23 mmol/L (22-30); Chloride 108 mmol/L (98-107); Estimated Glomerular Filt Rate > 60; Glucose 84 mg/dL (65-110); Potassium 3.4 mmol/L (3.4-5.0); Sodium 135 mmol/L (137-145); Uric Acid 4.4 mg/dL (2.5-7.5)
[2024-10-05 16:56] LABS: Creatinine Urine 131.1 mg/dL; Total Protein Urine Random 24 mg/dL; Ur Ttl Prot Creatinine Ratio 0.18 mg/mg (0-0.20)
[2024-10-05 17:01] VITALS: BP 124/67; PULSE 88
[2024-10-05 17:05] LABS: Add Urine Microscopic? YES; Appearance Urine Cloudy (Clear); Bacteria Urine 2+ /hpf; Bilirubin Urine Negative (Negative); Blood Urine Negative (Negative); Color Urine Yellow (Yellow); Glucose Urine UA Negative (Negative); Ketones Urine Negative (Negative); Leukocyte Esterase Ur Trace LEU/UL (Negative); Need Manual Microscopic Reviewed; Nitrate Urine Negative (Negative); Non Pathogenic Casts 0-2; Protein Urine Trace mg/dL (Negative); RBC Urine 0-2 /hpf (0-2); Specific Grav Ur 1.014 (1.001-1.035); Squamous Epithelial Cell Urine Many /hpf (Few); Urobilinogen Urine 0.2 mg/dL (<2.0); pH Urine 6.5 (5.0-9.0)
[2024-10-05 17:16] VITALS: BP 131/67; PULSE 84
[2024-10-05 17:28] VITALS: BP 134/69; PULSE 85
== END 2024-10-05 17:25 | disposition home or self-care (01) ==
LOC: ANHOBOP 16:13 → ANHLDR 16:16
PROVIDERS: PCP Nurse Practitioner Family; Visit Provider Obstetrics & Gynecology
DX: O13.9 Gestational [pregnancy-induced] hypertension without significant proteinuria, unspecified trimester (principal)
CPT/HCPCS: 36415; 59025; 80053; 81001; 82570; 84156; 84550; 85025; 87086; 99199

== ENCOUNTER 2024-10-17 08:45 | Outpatient (RCR) | payer BC, SELFPAY ==
[2024-08-16 12:51] VITALS: BP 135/69; PULSE 91
[2024-09-13 09:27] VITALS: BP 135/79; PULSE 93
[2024-09-19 10:34] VITALS: BP 146/87; PULSE 85
[2024-09-26 08:57] VITALS: BP 135/73; PULSE 89
[2024-10-02 11:11] VITALS: BP 121/76; PULSE 90
[2024-10-10 12:47] VITALS: BP 121/72; PULSE 93
[2024-10-17 09:12] VITALS: BP 137/81; PULSE 108
== END 2024-11-14 23:59 | disposition home or self-care (01) ==
LOC: ANHOBOP 08:45
PROVIDERS: PCP Nurse Practitioner Family; Visit Provider Obstetrics & Gynecology
DX: O36.8130 Decreased fetal movements, third trimester, not applicable or unspecified (principal); Z3A.28 28 weeks gestation of pregnancy
CPT/HCPCS: 59025

== ENCOUNTER 2024-10-17 21:15 | Outpatient (CLI) | payer BC, SELFPAY ==
[2024-10-17 21:31] VITALS: BP 155/84; PULSE 91
[2024-10-17 21:45] VITALS: BP 133/83; PULSE 99
[2024-10-17 21:49] LABS: Add Urine Microscopic? YES; Appearance Urine Cloudy (Clear); Bacteria Urine Rare /hpf; Bilirubin Urine Negative (Negative); Blood Urine Negative (Negative); Color Urine Yellow (Yellow); Glucose Urine UA Negative (Negative); Ketones Urine Negative (Negative); Leukocyte Esterase Ur Trace LEU/UL (Negative); Nitrate Urine Negative (Negative); Non Pathogenic Casts 0-2; Protein Urine Negative (Negative); RBC Urine 0-2 /hpf (0-2); Specific Grav Ur 1.011 (1.001-1.035); Squamous Epithelial Cell Urine Many /hpf (Few); Urobilinogen Urine 0.2 mg/dL (<2.0)
[2024-10-17 21:51] LABS: Basophils Percent Auto 0.3 % (0.2-1.2); Eosinophils Absolute Auto 0.1 K/mm3 (0-0.3); Eosinophils Percent Auto 1.2 % (0-4.4); Hematocrit 30.2 % (37.0-47.0); Hemoglobin 10.4 g/dL (12.0-15.0); Immature Granulocyte Absolute 0.03 K/mm3 (0.00-0.031); Immature Granulocyte Percent A 0.3 % (0-0.5); Lymphocytes Absolute Auto 1.97 K/mm3 (0.9-3.2); Lymphocytes Percent Auto 19.9 % (18.3-44.2); Mean Corpuscular HGB Conc 34.4 g/dl (32-36); Mean Corpuscular Hemoglobin 30.2 pg (26-34); Mean Corpuscular Volume 87.8 fl (80-100); Mean Platelet Volume 10.7 fl (7.4-10.4); Monocytes Absolute Auto 0.7 K/mm3 (0.1-0.6); Monocytes Percent Auto 6.6 % (2.6-8.5); Neutrophils Absolute Auto 7.1 K/mm3 (1.3-6.7); Neutrophils Percent Auto 71.7 % (45.5-73.1); Platelet Count Result 231 k/mm3 (150-375); Red Blood Count 3.44 M/mm3 (4.2-5.4); Red Cell Distribution Width 14.9 % (11.5-14.5); White Blood Count 9.9 K/mm3 (4.5-10.0)
[2024-10-17 22:00] VITALS: BP 129/76; PULSE 86
[2024-10-17 22:01] LABS: Alanine Aminotransferase 13 U/L (6-35); Albumin Level 3.3 g/dL (3.5-5.1); Alkaline Phosphatase 136 U/L (38-126); Anion Gap 7 mmol/L (4-12); Aspartate Amino Transferase 15 U/L (14-36); Bilirubin,Total 0.5 mg/dL (0.2-1.3); Blood Urea Nitrogen 5 mg/dL (7-17); Calcium 9.5 mg/dL (8.4-10.2); Carbon Dioxide 21 mmol/L (22-30); Chloride 106 mmol/L (98-107); Estimated Glomerular Filt Rate > 60; Glucose 105 mg/dL (65-110); Sodium 134 mmol/L (137-145); Uric Acid 4.4 mg/dL (2.5-7.5)
[2024-10-17 22:15] VITALS: BP 116/75; PULSE 90
[2024-10-17 22:24] LABS: Creatinine Urine 90.3 mg/dL; Total Protein Urine Random 30 mg/dL; Ur Ttl Prot Creatinine Ratio 0.33 mg/mg (0-0.20)
[2024-10-17 22:29] VITALS: BP 133/83; PULSE 93; BMI 43.4
[2024-10-17 22:30] VITALS: BP 133/83; PULSE 93
--- NOTE | 2024-10-17 22:40 | PC.NURSE ---
RN gave patient PIH handouts. RN discussed with patient symptoms to monitor for and when to return to the hospital. Patient verbalizes understanding and has no questions at this time. Patient to see Josephine Baron MD in the office tomorrow.
== END 2024-10-17 22:47 ==
LOC: ANHOBOP 21:21 → ANHOBPP 21:24
PROVIDERS: PCP Nurse Practitioner Family; Visit Provider Obstetrics & Gynecology
DX: O13.9 Gestational [pregnancy-induced] hypertension without significant proteinuria, unspecified trimester (principal); Z3A.00 Weeks of gestation of pregnancy not specified
CPT/HCPCS: 36415; 59025; 80053; 81001; 82570; 84156; 84550; 85025; 87086; 99199

== ENCOUNTER 2024-10-23 05:39 | Inpatient (IN) | payer BC, SELFPAY ==
[2024-10-23] VITALS (187 sets, daily range): BP systolic 100–161; BP diastolic 49–118; PULSE 73–195; RESP 16; TEMP 36.2–37.2; O2SAT 90–100; BMI 42.9
--- NOTE | 2024-10-23 05:39 | LDADM ---
This patient, Drake Starks, was admitted to Labor/Delivery/Recovery 105 on 10/23/24 at 05:39. Plans for labor, pain management and were discussed with patient. Patient/family oriented to hospital policies and general routines including ID bracelet, bed and alarms, visiting hours, pain management, procedures, bathroom and other care routines, personal items, smoking policy, room service/diet and guest tray routines, security routines, and visiting hours. Patient/Family are encouraged to report perceived risks to care and to ask questions if they do not understand what they are told or what they should do. See OBIX for further documentation.
--- NOTE | 2024-10-23 06:33 | PM.IMHP ---
H&P: HPI History of Present Illness Date/Time: 10/23/24 06:33 Chief Complaint: Elevated blood pressure at term with diet-controlled gestational diabetes Narrative: this is a 29-year-old 4 para 1 who has S last menstrual period was 01/22/2024, EDC is 11/05/2024, confirmed by 8 week ultrasound presents at 38 weeks gestation for induction labor she has had elevated blood pressures. She had been on glyburide early for gestational diabetes but did not tolerate that well and her sugars were last ultrasound at 37 weeks shows 7lb 2oz and she is negative for group B strep she also takes levothyroxine and has been euthyroid throughout the Review of Systems Review of Systems: All systems reviewed & are unremarkable except as noted in HPI and below Constitutional: Constitutional: Reports no additional constitutional complaints Cardiovascular: Cardiovascular: Reports no additional cardiovascular complaints Respiratory: Respiratory: Reports no additional respiratory complaints Genitourinary: Genitourinary: Reports abnormal vaginal bleeding, Denies hematuria, Denies nocturia, Denies dysuria and Reports pelvic pain Musculoskeletal: Musculoskeletal: Reports no additional musculoskeletal complaints [facility] Past Medical History Medical History History of hypothyroidism Family History Family History Grandparent Family history of malignant neoplasm of kidney Diabetes mellitus Hypertension Father Patient's father is in good health Sibling Patient's brother is in good health Social History Social History Smoking status: Never smoker Alcohol intake: never Substance use: never Spiritual care concerns: No Meds Home Medications and Allergies Home Medications ?Medication ?Instructions ?Recorded ?Confirmed ?Type vit no.95-ferrous 1 tablet PO DAILY 12/30/19 10/17/24 History fumarate 28 mg-folic acid 800 mcg tablet () levothyroxine 100 mcg tablet 100 mcg PO DAILY #30 tabs 05/02/20 10/17/24 Rx (Synthroid) sertraline 50 mg tablet (Zoloft) 50 mg PO DAILY #90 tabs 05/02/20 10/17/24 Rx labetalol 200 mg tablet 200 mg PO Q12H 10/10/24 10/17/24 History levothyroxine 175 mcg tablet 175 mcg PO DAILY 10/10/24 10/17/24 History Allergies Allergy/AdvReac Type Severity Reaction Status Date / Time No Known Allergies Allergy Verified 10/17/24 22:09 Vital Signs Vital Signs - 24 hr 10/23/24 06:00 10/23/24 06:05 10/23/24 06:05 Pulse Rate Blood Pressure Pulse Oximetry 100 100 100 10/23/24 06:10 10/23/24 06:15 10/23/24 06:16 Pulse Rate 90 Blood Pressure 136/81 Pulse Oximetry 100 100 100 10/23/24 06:21 10/23/24 06:23 10/23/24 06:28 Pulse Rate Blood Pressure Pulse Oximetry 100 98 99 10/23/24 06:30 10/23/24 06:33 Pulse Rate 95 Blood Pressure 135/88 Pulse Oximetry 100 Exam Const: General: cooperative, healthy appearing and comfortable Nutritional Appearance: average body habitus Orientation/consciousness: oriented to person, oriented to place and oriented to time HENMT: Head: normal to inspection Resp: Effort & Inspection: normal respiratory effort Cardio: Rate: regular rate Rhythm: regular rhythm Heart sounds: S1 normal heart sound present and S2 normal heart sound present GI: Inspection: normal to inspection ( gravid soft uterus) : External Female Exam: normal external appearance Speculum Exam - Vagina: normal appearance of the vagina Speculum Exam - Cervix: normal appearance of the cervix ( cervix 2/50/2. Attempted a ROM. FHTs reassuring) Assessment and Plan Assessment and plan (1) Term : Code(s): Z34.90 - Encounter for supervision of normal , unspecified, unspecified trimester Status: Acute (2) Gestational hypertension: Code(s): O13.9 - Gestational [-induced] hypertension without significant proteinuria, unspecified trimester Status: Acute (3) Gestational diabetes: Code(s): O24.419 - Gestational diabetes mellitus in , unspecified control Status: Acute (4) Hypothyroidism: Code(s): E03.9 - Hypothyroidism, unspecified Status: Acute Plan check PIH labs and sugars. Medical induction of labor. Spontaneous vaginal delivery is expected. She is an epidural candidate
[2024-10-23 06:51] LABS: Basophils Percent Auto 0.3 % (0.2-1.2); Eosinophils Absolute Auto 0.2 K/mm3 (0-0.3); Eosinophils Percent Auto 1.7 % (0-4.4); Hematocrit 30.3 % (37.0-47.0); Hemoglobin 10.5 g/dL (12.0-15.0); Immature Granulocyte Absolute 0.04 K/mm3 (0.00-0.031); Immature Granulocyte Percent A 0.4 % (0-0.5); Lymphocytes Absolute Auto 1.82 K/mm3 (0.9-3.2); Lymphocytes Percent Auto 20.2 % (18.3-44.2); Mean Corpuscular HGB Conc 34.7 g/dl (32-36); Mean Corpuscular Hemoglobin 30.3 pg (26-34); Mean Corpuscular Volume 87.3 fl (80-100); Mean Platelet Volume 10.9 fl (7.4-10.4); Monocytes Absolute Auto 0.6 K/mm3 (0.1-0.6); Monocytes Percent Auto 6.5 % (2.6-8.5); Neutrophils Absolute Auto 6.4 K/mm3 (1.3-6.7); Neutrophils Percent Auto 70.9 % (45.5-73.1); Platelet Count Result 211 k/mm3 (150-375); Red Blood Count 3.47 M/mm3 (4.2-5.4); Red Cell Distribution Width 14.9 % (11.5-14.5)
[2024-10-23] MEDS: LACTATED RINGERS 1,000 ML 125 ML IV CONT ×2 (07:04→11:02)
[2024-10-23 07:05] LABS: Uric Acid 4.9 mg/dL (2.5-7.5)
[2024-10-23] MEDS: OXYTOCIN 30 UNITS/NS 500 ML 30 UNITS/500 ML BAG IV CONT (07:05)
[2024-10-23 07:19] LABS: Alanine Aminotransferase 12 U/L (6-35); Albumin Level 3.2 g/dL (3.5-5.1); Alkaline Phosphatase 141 U/L (38-126); Anion Gap 10 mmol/L (4-12); Aspartate Amino Transferase 16 U/L (14-36); Bilirubin,Total 0.5 mg/dL (0.2-1.3); Blood Urea Nitrogen 4 mg/dL (7-17); Calcium 9.9 mg/dL (8.4-10.2); Carbon Dioxide 20 mmol/L (22-30); Chloride 107 mmol/L (98-107); Estimated Glomerular Filt Rate > 60; Glucose 108 mg/dL (65-110); Potassium 3.1 mmol/L (3.4-5.0); Sodium 137 mmol/L (137-145)
[2024-10-23 07:43] LABS: HIV 1/2 Ab P24 Ag Result Negative (Negative)
[2024-10-23 08:10] LABS: Rapid Plasma Reagin Non-Reactive (NonReactive)
[2024-10-23 10:35] LABS: Glucose Point of Care 116 mg/dl (65-105)
--- NOTE | 2024-10-23 12:06 | PM.OBPNLAB ---
Pain Control Date/time seen: 10/23/24 12:06 Pain control: tolerating well and epidural Pelvic Exam Dilation (cm): 4 Contractions Monitor mode: External Contraction frequency: 3 Contraction pattern: Regular
[2024-10-23 12:35] LABS: Glucose Point of Care 106 mg/dl (65-105)
[2024-10-23 14:30] LABS: Glucose Point of Care 92 mg/dl (65-105)
[2024-10-23 17:23] LABS: Glucose Point of Care 93 mg/dl (65-105)
--- NOTE | 2024-10-23 18:00 | PM.OBPNLAB ---
Pain Control Date/time seen: 10/23/24 18:00 Pain control: tolerating well and epidural Pelvic Exam Dilation (cm): 10 Effacement (%): 100 Contractions Monitor mode: External Contraction frequency: 3 Contraction pattern: Regular
--- NOTE | 2024-10-23 18:23 | P.PCNOB_ITS ---
OB - Vaginal Delivery Note Procedure Delivery date: 10/23/24 Events: Gestational Diabetes and Gestational Hypertension Induction method: AROM Delivery augmentation: Pitocin Delivery monitor: External FHT and Internal Uterine Route of delivery: Episiotomy description: None Laceration Description: Perineal - 1st Degree Delivery repair: vicryl Specimen: No Quantitative Blood Loss (ml): 62 Anesthesia type: Epidural Disposition: Floor Complications: No immediate complications Narrative: Patient was admitted for induction of labor secondary to elevated blood press ures been complicated by gestational diabetes she had been placed on glipizide and was only able to take that for a week or 2 as her sugars were low she was thus diet controlled thereafter. PIH labs were normal. Artificial rupture membranes performed was clear she progressed to an unremarkable 1st stage of labor and had epidural anesthesia placed she did have an IUPC placed as well which is complete she pushed delivered the head spontaneously in the PAMELA position. Anterior posterior shoulder delivered spontaneously. Cord clamped x2 and cut and passed off the table with an excell ent cry. Placenta delivered intact spontaneously. 20units of Pitocin placed IV to help firm the uterus. After inspecting the vagina of small first-degree perineal lesion was noted and it was closed with the [id number] of 0 Vicryl blood loss was 62cc. All sponge, needle, instrument counts were correct. There were no immediate complications [place] Baby Date of : 10/23/24 Time of : 18:12 Gestational Age by Date: 38 Infant gender: Female presentation: vertex position: Right Occiput Anterior Placenta delivery description: Spontaneous
--- NOTE | 2024-10-23 18:26 | PM.DS ---
DS: Admitting Diagnosis Discharge Date 10/25/2024 Admitting Diagnosis gestational hypertension/ gestational diabetes DS: Discharge Diagnosis Discharge Diagnosis (1) Term : Code(s): Z34.90 - Encounter for supervision of normal , unspecified, unspecified trimester Status: Acute (2) Gestational diabetes: Code(s): O24.419 - Gestational diabetes mellitus in , unspecified control Status: Acute (3) Gestational hypertension: Code(s): O13.9 - Gestational [-induced] hypertension without significant proteinuria, unspecified trimester Status: Acute DS: Summary Hospital Course Reason for hospitalization: patient was admitted for induction of labor on 10/23/2024 and underwent spontaneous vaginal delivery which was unremarkable. Hospital Course: The patient's hospital course unremarkable. She remained afebrile. She was up, voiding without difficulty, eating regular diet, ambulating generally without complaints. Time Spent with Patient Time attestation: Total time spent providing and/or coordinating discharge services: Exam Const: General: cooperative, healthy appearing and comfortable Nutritional Appearance: average body habitus Orientation/consciousness: oriented to person, oriented to place and oriented to time Resp: Effort & Inspection: normal respiratory effort Cardio: Rate: regular rate Rhythm: regular rhythm Heart sounds: S1 normal heart sound present and S2 normal heart sound present GI: Inspection: normal to inspection ( Fundus firm below umbilicus) DS: Data Data Completed and Pending Labs on day of discharge: Labs from last 24 hours 10/23/24 10/23/24 10/23/24 16:37 14:27 12:31 WBC RBC Hgb Hct MCV MCH MCHC RDW Plt Count MPV Immature Gran % (Auto) Neut % (Auto) Lymph % (Auto) Nance % (Auto) Eos % (Auto) Baso % (Auto) Lymph # (Auto) Nance # (Auto) Eos # (Auto) Baso # (Auto) Abs Immat Gran (auto) Absolute Neuts (auto) Absolute Nucleated RBC Nucleated RBC % Sodium Potassium Chloride Carbon Dioxide Anion Gap BUN Creatinine Estim Creat Clear Calc Estimated GFR Glucose POC Capillary Glucose 93 92 106 H Uric Acid Calcium Total Bilirubin AST ALT Alkaline Phosphatase Total Protein Albumin RPR HIV 1&2 Ab/P24 Ag 4thGn Blood Type Antibody Screen 10/23/24 10/23/24 10:31 06:24 WBC 9.0 RBC 3.47 L Hgb 10.5 L Hct 30.3 L MCV 87.3 MCH 30.3 MCHC 34.7 RDW 14.9 H Plt Count 211 MPV 10.9 H Immature Gran % (Auto) 0.4 Neut % (Auto) 70.9 Lymph % (Auto) 20.2 Nance % (Auto) 6.5 Eos % (Auto) 1.7 Baso % (Auto) 0.3 Lymph # (Auto) 1.82 Nance # (Auto) 0.6 Eos # (Auto) 0.2 Baso # (Auto) 0.0 Abs Immat Gran (auto) 0.04 H Absolute Neuts (auto) 6.4 Absolute Nucleated RBC 0.000 Nucleated RBC % 0.0 Sodium 137 Potassium 3.1 L Chloride 107 Carbon Dioxide 20 L Anion Gap 10 BUN 4 L Creatinine 0.71 Estim Creat Clear Calc Not Reportable Estimated GFR > 60 Glucose 108 POC Capillary Glucose 116 H Uric Acid 4.9 Calcium 9.9 Total Bilirubin 0.5 AST 16 ALT 12 Alkaline Phosphatase 141 H Total Protein 7.0 Albumin 3.2 L RPR Non-reactive HIV 1&2 Ab/P24 Ag 4thGn Negative Blood Type O Positive Antibody Screen Negative Discharge Plan Discharge Attending physician on discharge: Andrea Martino Discharging Clinician: Andrea Martino Patient Disposition: Home, Self-Care Activity: may shower, no straining and pelvic rest Diet: heart healthy Wound Care Instructions: follow printed instructions Patient Instructions: Antibiotic Form Patient Language: Citizen Of [place] Stand Alone Forms: General Discharge Information Follow-up/Referrals: Andrea Martino MD [Physician] - Discharge Medications: Continued sertraline [Zoloft] 50 mg tablet 50 mg PO DAILY Qty: 90 0RF PNV cmb#95-ferrous fumarate-FA [] 28 mg iron- 800 mcg Tablet 1 tablet PO DAILY levothyroxine 175 mcg tablet 175 mcg PO DAILY labetalol 200 mg tablet 200 mg PO Q12H levothyroxine [Synthroid] 100 mcg tablet 175 mcg PO DAILY Date of admission: 10/23/24 05:39 Primary Care Provider: Shahid,Yahaira Nance Admitting Provider: Andrea Martino Attending physician on admission: Andrea Martino Condition: Stable
[2024-10-23] MEDS: OXYTOCIN 30 UNITS/NS 500 ML 30 UNITS/500 ML BAG 125 UNITS IV CONT (18:42)
[2024-10-23] MEDS: LORATADINE 10 MG TABLET PO (19:02)
[2024-10-23] MEDS: IBUPROFEN 600 MG TABLET PO (21:13)
[2024-10-23] MEDS: ACETAMINOPHEN 325 MG TABLET 650 MG PO (21:13)
[2024-10-24 01:00] VITALS: BP 146/85; PULSE 88; RESP 18; TEMP 36.8; O2SAT 99
[2024-10-24 04:03] LABS: Hematocrit 31.3 % (37.0-47.0); Hemoglobin 10.6 g/dL (12.0-15.0)
[2024-10-24] MEDS: LEVOTHYROXINE SODIUM 100 MCG TABLET PO (06:32)
[2024-10-24] MEDS: IBUPROFEN 600 MG TABLET PO (06:33)
[2024-10-24] MEDS: LEVOTHYROXINE SODIUM 75 MCG TABLET PO (06:33)
[2024-10-24] MEDS: ACETAMINOPHEN 325 MG TABLET 650 MG PO (06:33)
[2024-10-24 06:45] VITALS: BP 145/79; PULSE 83; RESP 16; TEMP 36.2; O2SAT 100
--- NOTE | 2024-10-24 07:41 | P.PNOB_ITS ---
OB - PN: Subj Subjective Date/time seen: 10/24/24 07:41 Patient comments: no complaints, pain well controlled and tolerating diet [place] baby status: doing well Narrative: bp good OB - PN: Obj Data Labs 10/24/24 03:55 10/23/24 06:24 Labs: Laboratory Results - last 24 hr 10/23/24 10/23/24 10/23/24 06:24 10:31 12:31 Hgb Hct POC Capillary Glucose 116 H 106 H RPR Non-reactive HIV 1&2 Ab/P24 Ag 4thGn Negative Antibody Screen Negative 10/23/24 10/23/24 10/24/24 14:27 16:37 03:55 Hgb 10.6 L Hct 31.3 L POC Capillary Glucose 92 93 RPR HIV 1&2 Ab/P24 Ag 4thGn Antibody Screen OB - PN A/P Assessment and Plan (1) Term : Code(s): Z34.90 - Encounter for supervision of normal , unspecified, unspecified trimester Status: Acute (2) Gestational diabetes: Code(s): O24.419 - Gestational diabetes mellitus in , unspecified control Status: Acute (3) Gestational hypertension: Code(s): O13.9 - Gestational [-induced] hypertension without significant proteinuria, unspecified trimester Status: Acute Plan routine care Time Spent With Patient Time: Total time spent is greater than 50% in coordination of care (as documented) at patient's floor/unit and/or counseling patient: Exam 2 Const: General: cooperative, healthy appearing and comfortable Nutritional Appearance: average body habitus Orientation/consciousness: oriented to person, oriented to place and oriented to time Resp: Effort & Inspection: normal respiratory effort Cardio: Rate: regular rate Rhythm: regular rhythm Heart sounds: S1 normal heart sound present and S2 normal heart sound present GI: Inspection: normal to inspection ( Fundus firm below umbilicus)
--- NOTE | 2024-10-24 08:51 | WPDANLDPN2 ---
Anes-Prog Note L&D Date/Time: 10/24/24 08:51 Comfortable throughout: labor and delivery Neuraxial method: epidural Epidural/Spinal procedure site: clean & non-tender Neuro status: Neuro function grossly intact. Cardiovascular status: normal Respiratory status: normal Airway patency: baseline Mental status: baseline Post-Op hydration status: normal Vital Signs: Last Vital Signs Temp 36.2 C L 10/24/24 06:45 Pulse 83 10/24/24 06:45 Resp 16 10/24/24 06:45 BP 145/79 H 10/24/24 06:45 Pulse Ox 100 10/24/24 06:45 O2 Del Method Room Air 10/23/24 21:00 Pain score (VAS): 1 I/O: Intake & Output 10/23/24 10/24/24 10/24/24 23:59 07:59 15:59 Output Total 112 Balance -112 Post-procedural complaints: none Patient feedback: Patient satisfied with anesthetic care.
[2024-10-24] MEDS: DOCUSATE SODIUM 100 MG CAPSULE PO (10:28)
[2024-10-24] MEDS: MULTIVIT/MIN/PREN/FOL AC/IRON TABLET 1 TAB PO (10:28)
[2024-10-24] MEDS: SERTRALINE HCL 50 MG TABLET PO (10:29)
[2024-10-24 12:30] VITALS: BP 140/89; PULSE 86; RESP 18; TEMP 37.4; O2SAT 99
[2024-10-24 19:45] VITALS: BP 140/89; PULSE 79; RESP 18; TEMP 37.1; O2SAT 99
--- NOTE | 2024-10-25 07:38 | P.PNOB_ITS ---
OB - PN: Subj Subjective Date/time seen: 10/25/24 07:38 Patient comments: no complaints, pain well controlled and tolerating diet [place] baby status: doing well OB - PN: Obj Data Labs 10/24/24 03:55 10/23/24 06:24 OB - PN A/P Assessment and Plan (1) Term : Code(s): Z34.90 - Encounter for supervision of normal , unspecified, unspecified trimester Status: Acute (2) Gestational diabetes: Code(s): O24.419 - Gestational diabetes mellitus in , unspecified control Status: Acute (3) Gestational hypertension: Code(s): O13.9 - Gestational [-induced] hypertension without significant proteinuria, unspecified trimester Status: Acute Plan home Time Spent With Patient Time: Total time spent is greater than 50% in coordination of care (as documented) at patient's floor/unit and/or counseling patient: Review of Systems 2 Review of Systems: All systems reviewed & are unremarkable except as noted in HPI and below Constitutional: Constitutional: Reports no additional constitutional complaints Cardiovascular: Cardiovascular: Reports no additional cardiovascular complaints Respiratory: Respiratory: Reports no additional respiratory complaints Genitourinary: Genitourinary: Reports abnormal vaginal bleeding, Denies hematuria, Denies nocturia, Denies dysuria and Reports pelvic pain Musculoskeletal: Musculoskeletal: Reports no additional musculoskeletal complaints Exam 2 Const: General: cooperative, healthy appearing and comfortable O rientation/consciousness: oriented to person, oriented to place and oriented to time Resp: Effort & Inspection: normal respiratory effort GI: Inspection: normal to inspection
[2024-10-25] MEDS: LEVOTHYROXINE SODIUM 100 MCG TABLET PO (07:59)
[2024-10-25] MEDS: LEVOTHYROXINE SODIUM 75 MCG TABLET PO (07:59)
[2024-10-25 08:05] VITALS: BP 143/93; PULSE 80; RESP 18; TEMP 36.4; O2SAT 99
[2024-10-25] MEDS: IBUPROFEN 600 MG TABLET PO (08:49)
[2024-10-25] MEDS: TETANUS,DIPHTHERIA,AC PERTUSSIS ADULT (0.5 ML) BOOSTRIX IM (08:50)
--- NOTE | 2024-10-25 09:02 | PC.NURSE ---
On 10/25/24, the student, Julieth Doan, provided care and completed [facility] documentation on this patient. I have reviewed the student's documentation and agree with the findings.
[2024-10-25] MEDS: SERTRALINE HCL 50 MG TABLET PO (09:43)
[2024-10-25] MEDS: MULTIVIT/MIN/PREN/FOL AC/IRON TABLET 1 TAB PO (09:43)
--- NOTE | 2024-10-25 11:51 | PC.NURSE ---
Patient viewed the discharge video Mother & Baby Care, The First Two Weeks . Patient was given the opportunity and encouraged to ask questions. Patient verbalized understanding of information shared and has been given the mother/baby guide for home reference.
[2024-10-26 08:17] VITALS: BP 127/74; PULSE 63; RESP 18; TEMP 36.6; O2SAT 100
--- NOTE | 2024-10-26 09:18 | PC.NURSE ---
On 10/26/24, the students Odell and Chloe, provided care and completed [facility] documentation on this patient. I have reviewed the student's documentation and agree with the findings.
--- OUTSIDE RECORDS SUMMARY | 2024-10-26 11:23 | XMS_ITS | Clinical Summary ---
Author Organization [facility] Address [address] [place] [id number] Care Team Providers Care Patient Observation Assistant Name Role Phone Unknown, Notinfile Unavailable Unavailable Yahaira Key NP Primary Care Provider [phone] Andrea Martino MD Unavailable [phone] Allergies No known active allergies Medications ARIPiprazole (ABILIFY) 15 mg tablet Take 1 tablet (15 mg total) by mouth daily Active sertraline (ZOLOFT) 100 mg tablet Take 1.5 tablets (150 mg total) by mouth daily Active progesterone (PROMETRIUM) 200 mg capsule TAKE 1 CAPSULE BY MOUTH DAILY FOR 15 DAYS DIRECTED Active albuterol HFA (PROVENTIL HFA,VENTOLIN HFA,PROAIR HFA) 90 mcg/actuation inhaler 2 puffs every 4 (four) hours as needed Active budesonide-formo teroL (Symbicort) 160-4.5 mcg/actuation inhalerIndicatio ns:Chronic cough Inhale 2 puffs 2 (two) times a day Rinse mouth with water after use. Do not swallow. 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,Preg shanta, unspecified gestational age Take 1 tablet (175 mcg total) by mouth daily before breakfast 30 tablet 5 4 01/17/20 25 Active Active Problems Problem Noted Date Diagnosed Date Sprain of deltoid ligament of ankle 02/17/2024 Asthma 02/01/2024 Insulin resistance 02/06/2023 Iron deficiency 02/06/2023 Mixed anxiety and depressive disorder 02/06/2023 Obesity 02/06/2023 Prediabetes 12/21/2022 Cobalamin deficiency 10/01/2022 Vitamin D deficiency 10/01/2022 Fall 11/12/2019 Overview (11/12/2019): 11/11/2019 [place]; 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 Expect to be sore but should seek care if she has significant mobility impairment. Acne 11/11/2012 Cystic acne 09/16/2011 Overview (02/17/2024): Overview: onset age 12 (< 1 year premenarchal); localized to right>left cheek; with a persistent sinus tract component since April 2011 Comments Yes Immunizations Name Administration Dates Next Due Influenza, Unspecified 07/03/2019 Surgical History Surgery Date Site/Laterality Comments LAPAROSCOPIC ENDOMETRIOSIS FULGURATION 10/04/2015 - 09/05 Medical History Medical History Date Comments Thyroid disease Endometriosis Hypothyroidism 2014 Willie's thyroiditis 2014 Vitamin D deficiency 10/01/2022 Prediabetes 12/21/2022 Obesity 02/06/2023 Insulin resistance 02/06/2023 Iron deficiency 02/06/2023 Mixed anxiety and depressive disorder 02/06/2023 Sprain of deltoid ligament of ankle 02/17/2024 Asthma 02/01/2024 Cystic acne 09/16/2011 Overview: ??onse t age 12 (< 1 year premenarchal); localized to right>left cheek; with a persistent sinus tract component since April 2011 Family History Medical History Relation Name Comments Heart attack Father's Sister Sister Cancer Maternal Grandmother Grandma Diabetes Maternal Grandmother Grandma Relation Name Status Comments Father's Sister Sister Maternal Grandmother Grandma Social History Tobacco Use Types Packs/Day Years Used Date Smoking Tobacco: Never Passive Smoke Exposure: Current Smokeless Tobacco: Never Tobacco Cessation:Counseling Given: Not Answered Alcohol Use Standard Drinks/Week Comments Not Currently 0 (1 standard drink = 0.6 oz pur e alcohol) Personal Safety Answer Date Recorded Getting School Help Needed Not on file 12/17 Comments Yes Sex and Gender Information Value Date Recorded Sex Assigned at Not on file Legal Sex Female 4:24 AM [employer] Gender Identity Female 01/24/2024 2:19 PM CDT Sexual Orientation Straight 01/24/2024 2: 19 PM CDT Obstetrics History Para Term AB IAB SAB Ectopic Multiple Livin g Live Births 4 1 1 2 2 1 1 Date Outcome GA Total Labor Labor/2nd/3rd Weight Sex Type Anes PTL Cynthia A1 A5 Name Clin 01/14 Term F Vag-Spo nt Living 2021 SAB Biochem ical 2022 SAB Biochem ical Current Last Filed Vital Signs Vital Sign Reading Time Taken Comments Blood Pressure 127/79 03/21/2024 12:27 PM CDT Pulse 101 03/21/2024 12:27 PM CDT Temperature 37.2 ??C (99 ??F) 02/16/2024 11: 19 AM CDT Respiratory Rate - - Oxygen Saturation 98% 02/01/2024 1:21 PM CDT Inhaled Oxygen Concentration - - Weight 114.4 kg (252 lb 3.2 oz) 024 12:27 PM CDT Height 162.6 cm (5' 4 ) 03/21/2024 12:2 7 PM CDT Body Mass Index 43.29 03/21/2024 12:27 PM CDT Plan of Treatment Health Maintenance Due Date Last Done Comments Cervical Cancer Screening 1996 Depression Screening 1996 Hepatitis C Screening 1996 Pneumococcal vaccine <65 (1 of 2 - PCV) 2002 Varicella Vaccines (1 of 2 - 13+ 2-dose series) 2009 Regular Well Visit/Exam 18-64 2014 Covid-19 Vaccine (5 - 2023-2 5 season) 2024 09/18/2021, 09/17/2021, 10/28/2020, Additional history exists Influenza Vaccine (#1) 2024 , 07/03/2019, 07/13/2018, Additional history exists DTaP/Tdap/Td Vaccine (8 - Td or Tdap) 12/28/2029 12/29/2019, 05/02/2007, 05/29/2002, Additional history exists HPV Vaccines Completed 12/06/2009, 06/04, 04/02/2009 Insurance [employer]ES [place] [phone] EMPLOYEES [employer] [place] [address] [address] [employer] Care Teams Patient Observation Assistant Relationship Specialty Start Date End Date Yahaira Key NP PCP - General Family Medicine 02/16/24 Unknown, Notinfile 01/03/24 Andrea Martino MD [id number] [address] Referring Physician Obstetrics and Gynecology 03/03/24
--- OUTSIDE RECORDS SUMMARY | 2024-10-26 11:23 | XMS_ITS | Data Portability ---
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 Lab iron + total iron-christina ng capacity (TIBC), serum 2022 023 [facility] (Lab), [address] [place], [address], 3 12:50:11 ferritin, serum or plasma 2022 023 [facility] (Lab), [address] [place], [address], 3 13:22:22 lipid panel, serum 2022 023 [facility] (Lab), [address] [place], [address], 3 12:50:08 CBC w/ auto diff 2022 023 [facility] (Lab), [address] [place], [address], 3 12:31:40 CMP, serum or plasma 2022 023 [facility] (Lab), [address] [place], [address], 3 12:50:05 vitamin D, 25-hydroxy , total, serum [address] (Lab), [address] [place], [address], 3 10:56:28 glycohemog lobin, total, blood 2022 023 [facility] (Lab), [address] [place], [address], 3 12:47:35 TSH, serum or plasma 2022 023 [facility] (Lab), [address] [place], [address], 3 13:22:03 T4, free, serum 2022 023 [facility] (Lab), [address] [place], [address], 3 13:07:19 vitamin B12 + folate, serum or blood [address] (Lab), [address] [place], [address], 3 10:56:28 iron + total iron-christina ng capacity (TIBC), serum 2023 024 [facility] (Lab), [address] [place], [address], 4 08:06:06 ferritin, serum or plasma 2023 024 [facility] (Lab), [address] [place], [address], 4 08:06:06 vitamin D, 25-hydroxy , total, serum 2023 024 [facility] (Lab), [address] [place], [address], 4 08:06:06 glycohemog lobin, total, blood 2023 024 [facility] (Lab), [address] [place], [address], 4 08:06:06 TSH, serum or plasma 2023 024 [facility] (Lab), [address] [place], [address], 4 11:31:05 T4, free, serum 2023 024 [facility] (Lab), [address] [place], [address], 4 08:06:05 CBC 2023 024 [facility] (Lab), [address] [place], [address], 4 08:06:06 lipid panel, serum 2023 024 [facility] (Lab), [address] [place], [address], 4 08:06:06 CMP, serum or plasma 2023 024 [facility] (Lab), [address] [place], [address], 4 08:08:24 vitamin B12 + folate, serum or blood 2023 024 [facility] (Lab), [address], [place], [address], 08:06:05 Referral None recorded. Procedures None recorded. Surgeries None recorded. Imaging None recorded. Medication Orders levothyrox ine 137 mcg tablet 2023 024 [id number], [address], [place], [place], [id number], 09:14:04 Patient TargetsNo targets recorded. Patient Instructions Encounter Date Encounter Id Patient Instructions Last Modified By Organization Details Last Modified Time 02/11/2023 [id number] INFLUENZA VACCIN E TD/TDAP Recommended today, patient declined Ordered P atient will get at local pharmacy/health department MAMMOGRAM Recommended today, but patient declined Ordered N o screening indicated at this time/ no family history CERVICAL SCREENING/PELVIC EXAMINATION COLORECTAL SCREENING Recommended today, but patient declined Ordered C olonoscopy declined. Cologuard ordered No screening necessary until age 45 DEPRESSION SCREENING BMI Overweight Appropr iate Underweight O besity NUTRITION PHYSICAL ACTIVITY Recommendation of 10-20 minutes of activity that causes mild breathlessness daily Recommendati on of 30 minutes of daily activity VISION Ordered Recommende d today ALCOHOL USE No alcohol use Occasional/Soc ial Use TOBACCO USE SEXUALLY ACTIVE Yes, Patient is in monogamous relationship GLUCOSE SCREENING Ordered LIPID SCREENING Ordered [email or web address] Not available 02/11/2023 10:28:20 01/20/2024 [id number] Follow up in 6 month and as needed Obtain labs Medications sent to pharmacy [email or web address] Not available 01/20/2024 09:15:00 Reason for Referral None Reported. Results Created Date Observation Date Name Description Value Unit Range Abnormal Flag Note LastModifiedBy Organization Detail LastModifiedTime 10/01/2010/02/2022 THYRO ID PEROX IDASE (TPO) AB thyroid peroxidase (tpo) Ab >600 IU/mL 0-34 high Perfo rmed at: CB - [facility]mins [address] [facility], [place] [id number] [facility] Lab Direc tor: Giovanni hutchins PhD, Phone : [phone] Not Available [facility] (Lab) [address] [place], [address], 10/02/2022 09:11:04 10/01/20 22 10/02/2022 INSUL IN insulin 12.3 uIU/m L 2.6-24 .9 [facility] [address] [facility], [place] [address] Lab Direc tor: Giovanni hutchins PhD, Phone : [phone] Not Available [facility] (Lab) [address] [place], [address], 10/02/2022 09:11:01 10/01/20 22 10/01/2022 HEMOG LOBIN A1C HA1C 5.0 % 4.0-6. 0 Diabe faye Scree sarah Crite beto: <5.7% Consi stent with absen ce of diabe faye 5.7-6 .4% Consi stent with incre ased risk for diabe faye (pred iabet es) >OR=6 .5% Consi stent with diabe faye REFER ENCE: Diabe faye Care 2016, 39(Rosales ppl.1 ):s13 -s22 Not Available [facility] (Lab) [address] [place], [address], 10/01/2022 20:48:50 10/01/20 22 10/01/2022 FOLAT E, SERUM /PLAS MA folate 5.35 NG/mL 2.76-2 0.0 Not Available [facility] (Lab) [address] [place], [address], 10/01/2022 19:06:11 10/01/20 22 10/01/2022 VITAM IN B12 (NICOLE GERTRUDE ) vb12 405 pg/mL 239-93 1 Not Available [facility] (Lab) [address] [place], [address], 10/01/2022 19:06:00 10/01/20 22 10/01/2022 LIZBET TIN ferritin 46 NG/mL 6.24-1 37 Not Available [facility] (Lab) [address] [place], [address], 10/01/2022 18:37:12 10/01/20 22 10/01/2022 TSH thyroid-stim ulating hormone 3.330 uIU/m L 0.465- 4.680 Not Available [facility] (Lab) [address] [place], [address], 10/01/2022 18:37:01 10/01/20 22 10/01/2022 T3 FREE free T3 3.6 pg/mL 2.77-5 .27 Not Available [facility] (Lab) [address] [place], [address], 10/01/2022 18:36:43 10/01/20 22 10/01/2022 T4 FREE free T4 0.99 NG/dL 0.78-2 .19 Not Available [facility] (Lab) [address] [place], [address], 10/01/2022 18:36:41 10/01/20 22 10/01/2022 VITAM IN D 25-HY DROXY vd25oh 21.4 NG/mL 30-100 low Vitam in D Statu s: Defic ient: <20 ng/mL Insuf ficie nt: 20-29 ng/mL Suffi cient : 30-10 0 ng/mL Not Available [facility] (Lab) [address] [place], [address], 10/01/2022 18:35:51 10/01/20 22 10/01/2022 IRON/ TIBC PANEL total iron binding capacity 308 mcg/d L 265-47 5 Not Available [facility] (Lab) [address] [place], [address], 10/01/2022 18:04:25 10/01/20 22 10/01/2022 IRON/ TIBC PANEL % transferrin saturation 20 % 20-55 Not Available [facility] (Lab) [address] [place], [address], 10/01/2022 18:04:25 10/01/20 22 10/01/2022 IRON/ TIBC PANEL unsaturated iron bind capacity 246 mcg/d L 126-38 2 Not Available [facility] (Lab) [address] [place], [address], 10/01/2022 18:04:25 10/01/20 22 10/01/2022 IRON/ TIBC PANEL iron 62 mcg/d L 42-175 Not Available [facility] (Lab) [address] [place], [address], 10/01/2022 18:04:25 10/01/20 22 10/01/2022 LIPID PANEL LDL cholesterol, calculated 110 mg/dL 0-130 NIH DARSHAN NSUS REPOR T RECOM MENDA TIONS FOR LDL: ADULT CHILD LOW RISK <130 <110 (OPTI MAL LDL) <100 ----- BORDE RLINE : 130-1 59 ----- HIGH RISK: >160 >130 A TRIGL YCERI DE RESUL T >400 INVAL IDATE S THE CALCU LATIO N FOR LDL FRACT IONAT ION - THE LDL RESUL T WILL NOT BE REPOR DAVID. Not Available [facility] (Lab) [address] [place], [address], 10/01/2022 18:01:08 10/01/20 22 10/01/2022 LIPID PANEL cholesterol 181 mg/dL 140-19 9 NIH DARSHAN NSUS RECOM MENDA TION FOR MAGY STERO L: ADULT CHILD LOW RISK: <200 <170 BORDE RLINE : <200- 239 ----- HIGH RISK: >240 >200 Not Available [facility] (Lab) [address] [place], [address], 10/01/2022 18:01:08 10/01/20 22 10/01/2022 LIPID PANEL triglyceride s 101 mg/dL 0-150 NIH DARSHAN NSUS REPOR T RECOM MENDA TION FOR TRIGL YCERI LATOSHA: ADULT CHILD LOW RISK: <150 ----- BODER LINE: 150-1 99 ----- HIGH RISK: >200 ----- Not Available [facility] (Lab) [address] [place], [address], 10/01/2022 18:01:08 10/01/20 22 10/01/2022 LIPID PANEL HDL cholesterol 51 mg/dL 40- Not Available [facility] (Lab) [address] [place], [address], 10/01/2022 18:01:08 10/01/20 22 10/01/2022 COMPR EHENS KOKO METAB OLIC PANEL total protein 7.6 g/dL 6.3-8. 2 Not Available [facility] (Lab) [address] [place], [address], 10/01/2022 18:01:05 10/01/20 22 10/01/2022 COMPR EHENS KOKO METAB OLIC PANEL alanine aminotransfe rase 23 U/L 0-35 Not Available [facility] (Lab) [address] [place], [address], 10/01/2022 18:01:05 10/01/20 22 10/01/2022 COMPR EHENS KOKO METAB OLIC PANEL aspartate aminotransfe rase 26 U/L 15-37 Not Available [facility] (Lab) [address] [place], [address], 10/01/2022 18:01:05 10/01/20 22 10/01/2022 COMPR EHENS KOKO METAB OLIC PANEL bilirubin, total 0.50 mg/dL 0.20-1 .30 Not Available [facility] (Lab) [address] [place], [address], 10/01/2022 18:01:05 10/01/20 22 10/01/2022 COMPR EHENS KOKO METAB OLIC PANEL calcium 9.3 mg/dL 8.4-10 .2 Not Available [facility] (Lab) [address] [place], [address], 10/01/2022 18:01:05 10/01/20 22 10/01/2022 COMPR EHENS KOKO METAB OLIC PANEL albumin 4.4 g/dL 3.4-5. 0 Not Available [facility] (Lab) [address] [place], [address], 10/01/2022 18:01:05 10/01/20 22 10/01/2022 COMPR EHENS KOKO METAB OLIC PANEL globulin 3.2 g/dL 2.6-4. 2 Not Available [facility] (Lab) [address] [facility] [place], [address], 10/01/2022 18:01:05 10/01/20 22 10/01/2022 COMPR EHENS KOKO METAB OLIC PANEL A/G ratio 1.4 ratio 1.0-2. 0 Not Available [facility] (Lab) [address] [facility] [place], [address], 10/01/2022 18:01:05 10/01/20 22 10/01/2022 COMPR EHENS KOKO METAB OLIC PANEL sodium 138 mmol/ L 137-14 5 Not Available [facility] (Lab) [address] [place], [address], 10/01/2022 18:01:05 10/01/20 22 10/01/2022 COMPR EHENS KOKO METAB OLIC PANEL potassium 4.0 mmol/ L 3.5-5. 1 Not Available [facility] (Lab) [address] [place], [address], 10/01/2022 18:01:05 10/01/20 22 10/01/2022 COMPR EHENS KOKO METAB OLIC PANEL chloride 101 mmol/ L 98-107 Not Available [facility] (Lab) [address] [place], [address], 10/01/2022 18:01:05 10/01/20 22 10/01/2022 COMPR EHENS KOKO METAB OLIC PANEL carbon dioxide 27 mmol/ L 22-30 Not Available [facility] (Lab) [address] [place], [address], 10/01/2022 18:01:05 10/01/20 22 10/01/2022 COMPR EHENS KOKO METAB OLIC PANEL anion gap 14.0 mmol/ L 14-22 Not Available [facility] (Lab) [address] [place], [address], 10/01/2022 18:01:05 10/01/20 22 10/01/2022 COMPR EHENS KOKO METAB OLIC PANEL glucose 87 mg/dL 70-99 Not Available [facility] (Lab) [address] [place], [address], 10/01/2022 18:01:05 10/01/20 22 10/01/2022 COMPR EHENS KOKO METAB OLIC PANEL BUN 10 mg/dL 8-19 Not Available [facility] (Lab) [address] [place], [address], 10/01/2022 18:01:05 10/01/20 22 10/01/2022 COMPR EHENS KOKO METAB OLIC PANEL creatinine 0.89 mg/dL 0.66-1 .25 Not Available [facility] (Lab) [address] [place], [address], 10/01/2022 18:01:05 10/01/20 22 10/01/2022 COMPR EHENS KOKO METAB OLIC PANEL GFR >60 Refer ence Range : [place] ge GFR Healt hy Adult : >60 mL/mi n/1.7 3 m2 Chron ic Kidne y Disea se: 15-60 mL/mi n/1.7 3 m2 Kidne y Failu re: <15/m L/min /1.73 m2 www.n iddk. nih.g ov The MDRD study equat ion has not been valid ated in child simon <18 years of age; pregn ant women ; the elder ly >85 years of age; or in some racia l or ethni c subgr oups, such as Hispa nics. Outsi de the valid ated dale eters , estim ated GFR is less accur ate, requi ring clini gray judgm ent on a case- by-ca se basis . Clini gray inter preta tion for other races and ages must be made by the clini rosalia. The MDRD study equat ion has not been valid ated for the evalu ation of serum creat inine relat ed to nutri janet l statu s or medic ation usage . For perso ns <18 years of age, a pedia tric GFR calcu lator is avail able on the [facility] websi te: https ://neto caceres.jose m weeks.nikita rg/pr ofess ional s/kdo qi/gf r_cal culat or Not Available [facility] (Lab) [address] [place], [address], 10/01/2022 18:01:05 10/01/20 22 10/01/2022 COMPR EHENS KOKO METAB OLIC PANEL alkaline phosphatase 102 U/L 38-126 Not Available [facility] (Lab) [address] [place], [address], 10/01/2022 18:01:05 10/01/20 22 10/01/2022 CBC/C OMPLE TE BLD COUNT W/DIF F mean red cell volume 89.2 fL 82.0-9 9.0 Not Available [facility] (Lab) [address] [place], [address], 10/01/2022 18:01:03 10/01/20 22 10/01/2022 CBC/C OMPLE TE BLD COUNT W/DIF F red blood cells 4.89 x10'6 /uL 3.80-5 .20 Not Available [facility] (Lab) [address] [place], [address], 10/01/2022 18:01:03 10/01/20 22 10/01/2022 CBC/C OMPLE TE BLD COUNT W/DIF F hemoglobin 14.2 g/dL 12.0-1 5.6 Not Available [facility] (Lab) [address] [place], [address], 10/01/2022 18:01:03 10/01/20 22 10/01/2022 CBC/C OMPLE TE BLD COUNT W/DIF F hematocrit 43.6 % 35.7-4 5.7 Not Available [facility] (Lab) [address] [place], [address], 10/01/2022 18:01:03 10/01/20 22 10/01/2022 CBC/C OMPLE TE BLD COUNT W/DIF F mean red cell hemoglobin 29.0 pg 27.0-3 3.0 Not Available [facility] (Lab) [address] [place], [address], 10/01/2022 18:01:03 10/01/20 22 10/01/2022 CBC/C OMPLE TE BLD COUNT W/DIF F mean RBC HGB concentratio n 32.6 g/dL 31.0-3 6.0 Not Available [facility] (Lab) [address] [place], [address], 10/01/2022 18:01:03 10/01/20 22 10/01/2022 CBC/C OMPLE TE BLD COUNT W/DIF F red cell distribution width 13.6 % 11.8-1 5.5 Not Available [facility] (Lab) [address] [place], [address], 10/01/2022 18:01:03 10/01/20 22 10/01/2022 CBC/C OMPLE TE BLD COUNT W/DIF F platelets 258 x10'3 /uL 150-40 0 Not Available [facility] (Lab) [address] [facility] [place], [address], 10/01/2022 18:01:03 10/01/20 22 10/01/2022 CBC/C OMPLE TE BLD COUNT W/DIF F mean platelet volume 10.2 fL 9.0-12 .4 Not Available [facility] (Lab) [address] [facility] [place], [address], 10/01/2022 18:01:03 10/01/20 22 10/01/2022 CBC/C OMPLE TE BLD COUNT W/DIF F neutrophils 61.7 % 39.0-7 2.0 Not Available [facility] (Lab) [address] [place], [address], 10/01/2022 18:01:03 10/01/20 22 10/01/2022 CBC/C OMPLE TE BLD COUNT W/DIF F lymphocytes 27.4 % 16.0-4 7.0 Not Available [facility] (Lab) [address] [place], [address], 10/01/2022 18:01:03 10/01/20 22 10/01/2022 CBC/C OMPLE TE BLD COUNT W/DIF F monocytes 7.5 % 5.0-12 .0 Not Available [facility] (Lab) [address] [place], [address], 10/01/2022 18:01:03 10/01/20 22 10/01/2022 CBC/C OMPLE TE BLD COUNT W/DIF F eosinophils 2.5 % 1.0-7. 0 Not Available [facility] (Lab) [address] [place], [address], 10/01/2022 18:01:03 10/01/20 22 10/01/2022 CBC/C OMPLE TE BLD COUNT W/DIF F basophils 0.8 % 0.0-2. 0 Not Available [facility] (Lab) [address] [place], [address], 10/01/2022 18:01:03 10/01/20 22 10/01/2022 CBC/C OMPLE TE BLD COUNT W/DIF F immature granulocytes 0.1 % 0.00-0 .50 Not Available [facility] (Lab) [address] [place], [address], 10/01/2022 18:01:03 10/01/20 22 10/01/2022 CBC/C OMPLE TE BLD COUNT W/DIF F neutrophils, absolute count 5.58 x10'3 /uL 1.5-8. 0 Not Available [facility] (Lab) [address] [place], [address], 10/01/2022 18:01:03 10/01/20 22 10/01/2022 CBC/C OMPLE TE BLD COUNT W/DIF F lymphocytes, absolute count 2.48 x10'3 /uL 1.07-3 .43 Not Available [facility] (Lab) [address] [place], [address], 10/01/2022 18:01:03 10/01/20 22 10/01/2022 CBC/C OMPLE TE BLD COUNT W/DIF F monocytes, absolute count 0.68 x10'3 /uL 0.29-0 .99 Not Available [facility] (Lab) [address] [place], [address], 10/01/2022 18:01:03 10/01/20 22 10/01/2022 CBC/C OMPLE TE BLD COUNT W/DIF F eosinophils, absolute count 0.23 x10'3 /uL 0.02-0 .53 Not Available [facility] (Lab) [address] [place], [address], 10/01/2022 18:01:03 10/01/20 22 10/01/2022 CBC/C OMPLE TE BLD COUNT W/DIF F basophils, absolute count 0.07 x10'3 /uL 0.01-0 .08 Not Available [facility] (Lab) [address] [place], [address], 10/01/2022 18:01:03 10/01/20 22 10/01/2022 CBC/C OMPLE TE BLD COUNT W/DIF F immature granulocytes ,absolute 0.01 x10'3 /uL 0.00-0 .05 Not Available [facility] (Lab) [address] [place], [address], 10/01/2022 18:01:03 10/01/20 22 10/01/2022 CBC/C OMPLE TE BLD COUNT W/DIF F nucleated red blood cells 0.0 % -0 Not Available [facility] (Lab) [address] [place], [address], 10/01/2022 18:01:03 10/01/20 22 10/01/2022 CBC/C OMPLE TE BLD COUNT W/DIF F NRBC# 0.00 x10'3 /uL Not Available [facility] (Lab) [address] [place], [address], 10/01/2022 18:01:03 10/01/20 22 10/01/2022 CBC/C OMPLE TE BLD COUNT W/DIF F white blood cells 9.1 x10'3 /uL 4.2-10 .8 Not Available [facility] (Lab) [address] [place], [address], 10/01/2022 18:01:03 04/02/20 23 04/02/2023 CBC/C OMPLE TE BLD COUNT W/DIF F white blood cells 7.5 x10'3 /uL 4.2-10 .8 Not Available [facility] (Lab) [address] [place], [address], 04/02/2023 12:31:40 04/02/20 23 04/02/2023 CBC/C OMPLE TE BLD COUNT W/DIF F red blood cells 4.33 x10'6 /uL 3.80-5 .20 Not Available [facility] (Lab) [address] [facility] [place], [address], 04/02/2023 12:31:40 04/02/20 23 04/02/2023 CBC/C OMPLE TE BLD COUNT W/DIF F hemoglobin 12.6 g/dL 12.0-1 5.6 Not Available [facility] (Lab) [address] [place], [address], 04/02/2023 12:31:40 04/02/20 23 04/02/2023 CBC/C OMPLE TE BLD COUNT W/DIF F hematocrit 38.8 % 35.7-4 5.7 Not Available [facility] (Lab) [address] [place], [address], 04/02/2023 12:31:40 04/02/20 23 04/02/2023 CBC/C OMPLE TE BLD COUNT W/DIF F mean red cell volume 89.6 fL 82.0-9 9.0 Not Available [facility] (Lab) [address] [place], [address], 04/02/2023 12:31:40 04/02/20 23 04/02/2023 CBC/C OMPLE TE BLD COUNT W/DIF F mean red cell hemoglobin 29.1 pg 27.0-3 3.0 Not Available [facility] (Lab) [address] [place], [address], 04/02/2023 12:31:40 04/02/20 23 04/02/2023 CBC/C OMPLE TE BLD COUNT W/DIF F mean RBC HGB concentratio n 32.5 g/dL 31.0-3 6.0 Not Available [facility] (Lab) [address] [place], [address], 04/02/2023 12:31:40 04/02/20 23 04/02/2023 CBC/C OMPLE TE BLD COUNT W/DIF F red cell distribution width 14.2 % 11.8-1 5.5 Not Available [facility] (Lab) [address] [place], [address], 04/02/2023 12:31:40 04/02/20 23 04/02/2023 CBC/C OMPLE TE BLD COUNT W/DIF F platelets 231 x10'3 /uL 150-40 0 Not Available [facility] (Lab) [address] [place], [address], 04/02/2023 12:31:40 04/02/20 23 04/02/2023 CBC/C OMPLE TE BLD COUNT W/DIF F mean platelet volume 10.0 fL 9.0-12 .4 Not Available [facility] (Lab) [address] [place], [address], 04/02/2023 12:31:40 04/02/20 23 04/02/2023 CBC/C OMPLE TE BLD COUNT W/DIF F neutrophils 61.1 % 39.0-7 2.0 Not Available [facility] (Lab) [address] [place], [address], 04/02/2023 12:31:40 04/02/20 23 04/02/2023 CBC/C OMPLE TE BLD COUNT W/DIF F lymphocytes 29.1 % 16.0-4 7.0 Not Available [facility] (Lab) [address] [place], [address], 04/02/2023 12:31:40 04/02/20 23 04/02/2023 CBC/C OMPLE TE BLD COUNT W/DIF F monocytes 6.8 % 5.0-12 .0 Not Available [facility] (Lab) [address] [place], [address], 04/02/2023 12:31:40 04/02/20 23 04/02/2023 CBC/C OMPLE TE BLD COUNT W/DIF F eosinophils 1.9 % 1.0-7. 0 Not Available [facility] (Lab) [address] [place], [address], 04/02/2023 12:31:40 04/02/20 23 04/02/2023 CBC/C OMPLE TE BLD COUNT W/DIF F basophils 0.7 % 0.0-2. 0 Not Available [facility] (Lab) [address] [place], [address], 04/02/2023 12:31:40 04/02/20 23 04/02/2023 CBC/C OMPLE TE BLD COUNT W/DIF F immature granulocytes 0.4 % 0.00-0 .50 Not Available [facility] (Lab) [address] [place], [address], 04/02/2023 12:31:40 04/02/20 23 04/02/2023 CBC/C OMPLE TE BLD COUNT W/DIF F neutrophils, absolute count 4.60 x10'3 /uL 1.5-8. 0 Not Available [facility] (Lab) [address] [place], [address], 04/02/2023 12:31:40 04/02/20 23 04/02/2023 CBC/C OMPLE TE BLD COUNT W/DIF F lymphocytes, absolute count 2.19 x10'3 /uL 1.07-3 .43 Not Available [facility] (Lab) [address] [place], [address], 04/02/2023 12:31:40 04/02/20 23 04/02/2023 CBC/C OMPLE TE BLD COUNT W/DIF F monocytes, absolute count 0.51 x10'3 /uL 0.29-0 .99 Not Available [facility] (Lab) [address] [place], [address], 04/02/2023 12:31:40 04/02/20 23 04/02/2023 CBC/C OMPLE TE BLD COUNT W/DIF F eosinophils, absolute count 0.14 x10'3 /uL 0.02-0 .53 Not Available [facility] (Lab) [address] [place], [address], 04/02/2023 12:31:40 04/02/20 23 04/02/2023 CBC/C OMPLE TE BLD COUNT W/DIF F basophils, absolute count 0.05 x10'3 /uL 0.01-0 .08 Not Available [facility] (Lab) [address] [place], [address], 04/02/2023 12:31:40 04/02/20 23 04/02/2023 CBC/C OMPLE TE BLD COUNT W/DIF F immature granulocytes ,absolute 0.03 x10'3 /uL 0.00-0 .05 Not Available [facility] (Lab) [address] [place], [address], 04/02/2023 12:31:40 04/02/20 23 04/02/2023 CBC/C OMPLE TE BLD COUNT W/DIF F nucleated red blood cells 0.0 % -0 Not Available [facility] (Lab) [address] [place], [address], 04/02/2023 12:31:40 04/02/20 23 04/02/2023 CBC/C OMPLE TE BLD COUNT W/DIF F NRBC# 0.00 x10'3 /uL Not Available [facility] (Lab) [address] [place], [address], 04/02/2023 12:31:40 04/02/20 23 04/02/2023 HEMOG LOBIN A1C HA1C 4.6 % 4.0-6. 0 Diabe faye Scree sarah Crite beto: <5.7% Consi stent with absen ce of diabe faye 5.7-6 .4% Consi stent with incre ased risk for diabe faye (pred iabet es) >OR=6 .5% Consi stent with diabe faye REFER ENCE: Diabe faye Care 2016, 39(Rosales ppl.1 ):s13 -s22 Not Available [facility] (Lab) [address] [place], [address], 04/02/2023 12:47:35 04/02/20 23 04/02/2023 COMPR EHENS KOKO METAB OLIC PANEL sodium 140 mmol/ L 137-14 5 Not Available [place] (Lab) [address] [place], [address], 04/02/2023 12:50:05 04/02/20 23 04/02/2023 COMPR EHENS KOKO METAB OLIC PANEL potassium 4.2 mmol/ L 3.5-5. 1 Not Available [facility] (Lab) [address] [place], [address], 04/02/2023 12:50:05 04/02/20 23 04/02/2023 COMPR EHENS KOKO METAB OLIC PANEL chloride 105 mmol/ L 98-107 Not Available [facility] (Lab) [address] [place], [address], 04/02/2023 12:50:05 04/02/20 23 04/02/2023 COMPR EHENS KOKO METAB OLIC PANEL carbon dioxide 27 mmol/ L 22-30 Not Available [place] (Lab) [address] [place], [address], 04/02/2023 12:50:05 04/02/20 23 04/02/2023 COMPR EHENS KOKO METAB OLIC PANEL anion gap 12.2 mmol/ L 14-22 low Not Available [facility] (Lab) [address] [place], [address], 04/02/2023 12:50:05 04/02/20 23 04/02/2023 COMPR EHENS KOKO METAB OLIC PANEL glucose 95 mg/dL 70-99 Not Available [place] (Lab) [address] [place], [address], 04/02/2023 12:50:05 04/02/20 23 04/02/2023 COMPR EHENS KOKO METAB OLIC PANEL BUN 11 mg/dL 8-19 Not Available [facility] (Lab) [address] [place], [address], 04/02/2023 12:50:05 04/02/20 23 04/02/2023 COMPR EHENS KOKO METAB OLIC PANEL creatinine 0.99 mg/dL 0.66-1 .25 Not Available [facility] (Lab) [address] [place], [address], 04/02/2023 12:50:05 04/02/20 23 04/02/2023 COMPR EHENS KOKO METAB OLIC PANEL GFR >60 Refer ence Range : [place] ge GFR Healt hy Adult : >60 mL/mi n/1.7 3 m2 Chron ic Kidne y Disea se: 15-60 mL/mi n/1.7 3 m2 Kidne y Failu re: <15/m L/min /1.73 m2 [email or web address].g ov The MDRD study equat ion has not been valid ated in child simon <18 years of age; pregn ant women ; the elder ly >85 years of age; or in some racia l or ethni c subgr oups, such as Hispa nics. Outsi de the valid ated dale eters , estim ated GFR is less accur ate, requi ring clini gray judgm ent on a case- by-ca se basis . Clini gray inter preta tion for other races and ages must be made by the clini rosalia. The MDRD study equat ion has not been valid ated for the evalu ation of serum creat inine relat ed to nutri janet l statu s or medic ation usage . For perso ns <18 years of age, a pedia tric GFR calcu lator is avail able on the [facility] websi te: [email or web address] :[email or web address] [email or web address] [email or web address] [email or web address] s/kdo qi/gf r_cal culat or Not Available [facility] (Lab) [address] [place], [address], 04/02/2023 12:50:05 04/02/20 23 04/02/2023 COMPR EHENS KOKO METAB OLIC PANEL alkaline phosphatase 85 U/L 38-126 Not Available [facility] (Lab) [address] [place], [address], 04/02/2023 12:50:05 04/02/20 23 04/02/2023 COMPR EHENS KOKO METAB OLIC PANEL alanine aminotransfe rase 28 U/L 0-35 Not Available [facility] (Lab) [address] [place], [address], 04/02/2023 12:50:05 04/02/20 23 04/02/2023 COMPR EHENS KOKO METAB OLIC PANEL aspartate aminotransfe rase 28 U/L 15-37 Not Available [facility] (Lab) [address] [place], [address], 04/02/2023 12:50:05 04/02/20 23 04/02/2023 COMPR EHENS KOKO METAB OLIC PANEL bilirubin, total 0.40 mg/dL 0.20-1 .30 Not Available [facility] (Lab) [address] [place], [address], 04/02/2023 12:50:05 04/02/20 23 04/02/2023 COMPR EHENS KOKO METAB OLIC PANEL calcium 8.9 mg/dL 8.4-10 .2 Not Available [facility] (Lab) [address] [place], [address], 04/02/2023 12:50:05 04/02/20 23 04/02/2023 COMPR EHENS KOKO METAB OLIC PANEL total protein 7.0 g/dL 6.3-8. 2 Not Available [facility] (Lab) [address] [place], [address], 04/02/2023 12:50:05 04/02/20 23 04/02/2023 COMPR EHENS KOKO METAB OLIC PANEL albumin 3.9 g/dL 3.4-5. 0 Not Available [facility] (Lab) [address] [place], [address], 04/02/2023 12:50:05 04/02/20 23 04/02/2023 COMPR EHENS KOKO METAB OLIC PANEL globulin 3.1 g/dL 2.6-4. 2 Not Available [facility] (Lab) [address] [place], [address], 04/02/2023 12:50:05 04/02/20 23 04/02/2023 COMPR EHENS KOKO METAB OLIC PANEL A/G ratio 1.3 ratio 1.0-2. 0 Not Available [facility] (Lab) [address] [place], [address], 04/02/2023 12:50:05 04/02/20 23 04/02/2023 LIPID PANEL cholesterol 192 mg/dL 140-19 9 NIH DARSHAN NSUS RECOM MENDA TION FOR MAGY STERO L: ADULT CHILD LOW RISK: <200 <170 BORDE RLINE : <200- 239 ----- HIGH RISK: >240 >200 Not Available [facility] (Lab) [address] [place], [address], 04/02/2023 12:50:08 04/02/20 23 04/02/2023 LIPID PANEL triglyceride s 94 mg/dL 0-150 NIH DARSHAN NSUS REPOR T RECOM MENDA TION FOR TRIGL YCERI LATOSHA: ADULT CHILD LOW RISK: <150 ----- BODER LINE: 150-1 99 ----- HIGH RISK: >200 ----- Not Available [facility] (Lab) [address] [place], [address], 04/02/2023 12:50:08 04/02/20 23 04/02/2023 LIPID PANEL HDL cholesterol 46 mg/dL 40- Not Available [facility] (Lab) [address] [place], [address], 04/02/2023 12:50:08 04/02/2004/02/2023 LIPID PANEL LDL cholesterol, calculated 127 mg/dL 0-130 NIH DARSHAN NSUS REPOR T RECOM MENDA TIONS FOR LDL: ADULT CHILD LOW RISK <130 <110 (OPTI MAL LDL) <100 ----- CABRERA RLINE : 130-1 59 ----- HIGH RISK: >160 >130 A TRIGL YCERI DE RESUL T >400 INVAL IDATE S THE CALCU LATIO N FOR LDL FRACT IONAT ION - THE LDL RESUL T WILL NOT BE REPOR DAVID. Not Available [facility] (Lab) [address] [place], [address], 04/02/2023 12:50:08 04/02/2004/02/2023 IRON/ TIBC PANEL total iron binding capacity 315 mcg/d L 265-47 5 Not Available [facility] (Lab) [address] [place], [address], 04/02/2023 12:56:19 04/02/20 23 04/02/2023 IRON/ TIBC PANEL % transferrin saturation 19 % 20-55 low Not Available [facility] (Lab) [address] [place], [address], 04/02/2023 12:56:19 04/02/20 23 04/02/2023 IRON/ TIBC PANEL unsaturated iron bind capacity 256 mcg/d L 126-38 2 Not Available [facility] (Lab) [address] [place], [address], 04/02/2023 12:56:19 04/02/20 23 04/02/2023 IRON/ TIBC PANEL iron 59 mcg/d L 42-175 Not Available [facility] (Lab) [address] [place], [address], 04/02/2023 12:56:19 04/02/20 23 04/02/2023 VITAM IN D 25-HY DROXY vd25oh 38.2 NG/mL 30-100 Vitam in D Statu s: Defic ient: <20 ng/mL Insuf ficie nt: 20-29 ng/mL Suffi cient : 30-10 0 ng/mL Not Available [facility] (Lab) [address] [place], [address], 04/02/2023 13:01:41 04/02/20 23 04/02/2023 T4 FREE free T4 0.67 NG/dL 0.78-2 .19 low Not Available [facility] (Lab) [address] [place], [address], 04/02/2023 13:07:19 04/02/20 23 04/02/2023 TSH thyroid-stim ulating hormone 33.200 uIU/m L 0.465- 4.680 high Not Available [facility] (Lab) [address] [place], [address], 04/02/2023 13:22:03 04/02/20 23 04/02/2023 LIZBET TIN ferritin 66 NG/mL 6.24-1 37 Not Available [facility] (Lab) [address] [place], [address], 04/02/2023 13:22:22 04/02/20 23 04/02/2023 VITAM IN B12 (NICOLE GERTRUDE ) vb12 380 pg/mL 239-93 1 Not Available [facility] (Lab) [address], [place], [address], 04/02/2023 13:53:06 04/02/20 23 04/02/2023 FOLAT E, SERUM /PLAS MA folate 9.96 NG/mL 2.76-2 0.0 Not Available [facility] ([facility] [address] [facility] [place], [address], 04/02/2023 13:53:10 10/26/19 24 10/26/2023 US, hyste alma delia pingo gram No observ ation record ed. [address] [facility], [place], [address], 10/27/2023 11:37:12 04/09/20 24 04/09/2024 US, obste tric, 1st trime ster, singl e gesta tion No observ ation record ed. [email or web address] [address] [facility], [place], [address], 04/09/2024 15:00:07 Result Notes None recorded. Problems Name Problem SNOMED Code Status Onset Date Resolution Date Notes Provider Name and Address Organization Details Recorded Time Cobalamin deficiency 789401560 Active 2021 Yahaira Key APRN [address], [address], [place], [address] , [employer] 4 07:58:13 Vitamin D deficiency 40259975 Active 2021 Yahaira Key APRN [address], [address], [place], [address] , [employer] 4 07:58:36 Prediabetes 966464914 Active 2022 Yahaira Key APRN [address], [address], [place], [address] , [employer] 4 07:58:30 Sleep apnea 18870634 Active 2022 Yahaira Key APRN [address], [address], [place], [address] , [employer] 4 07:58:32 Hypothyroidis m 52314604 Active 2022 Yahaira Key APRN [address], [address], [place], [address] , [employer] 4 07:58:16 Insulin resistance 052157619 Active 2022 Yahaira Key APRN [address], [address], [place], [address] , [employer] 4 07:58:19 Iron deficiency 97312906 Active 2022 Yahaira Key APRN [address], [address], [place], [address] , [employer] 4 07:58:21 Mixed anxiety and depressive disorder 659541381 Active 2022 Yahaira Key APRN [address], [place], [address] , [employer] 4 07:58:25 Obesity 824500955 Active 2022 Yahaira Key APRN [address], [address], [place], [address] , [employer] 4 07:58:27 Unable to concentrate 60215074 Active 2022 Not Available [facility] 3 00:20:58 Sprain of deltoid ligament of ankle 40110889 Active Yahaira Key APRN [address], [place], [address] , [employer] 4 07:55:32 Problem Notes None recorded. Procedures Surgical History Date Name Laterality Status Provider Name and Address Organization Details Recorded Time endometrectomy of urinary bladder completed Not Available [facility] 12/02/2022 02:37:39 Imaging Results Imaging Date Name Status LastModified by Organization Details LastModified Time 10/26/2023 US, hysterosalpingogram completed [email or web address] [facility] [address], [place], [address], 10/27/2023 11:37:12 04/09/2024 US, obstetric, 1st trimester, single gestation completed [email or web address] [facility] [address] [facility] [address], [place], [address], 04/09/2024 15:00:07 Procedure Notes None recorded. Medical Equipment None Reported. Allergies Allergen ID Allergen Name Allergen Category Reaction Reaction Severity Criticality Documentation Date Start Date Code Code System Note Provider Name and Address Organization Details Recorded Time 89151 No known allergy (situatio n) Not available Not available Not available Not available 02/14/2024 82820 6003 SNOMED Yahaira Key, NUCLEAR INSTRUCTOR [address] [facility], [address], [place], [address] , [facility] [employer] 4 07:55:52 No known drug allergies Medications Name Sig Start Date Stop Date Status Note LastModified by Organization Details LastModified Time nifedipine ER 30 mg tablet,exte nded release 24 hr active Not Available Not Available Not Available cyclobenzap rine 10 mg tablet Take 1 tablet 3 times a day by oral route as needed. 01/19 completed Not Available Not Available Not Available levothyroxi ne 137 mcg tablet TAKE 1 TABLET BY MOUTH EVERY MORNING 30 - 60 MINUTES BEFORE FOOD OR MEDICATIO NS active Not Available Not Available No t Available azithromyci n 250 mg tablet Take 1 dose pk by oral route. 06/16 completed Not Available Not Available Not Available ibuprofen 800 mg tablet TAKE 1 TABLET BY MOUTH EVERY 8 HOURS WITH FOOD NEEDED active Not Available Not Available No t Available benzonatate 200 mg capsule Take 1 capsule 3 times a day by oral route as needed. active Not Available Not Available No t Available ampicillin 500 mg capsule 12/30 completed Not Available Not Available Not Available Synthroid 100 mcg tablet Take 1 tablet by oral route. 02/13 completed Not Available Not Available Not Available phentermine 37.5 mg tablet Take 1 tablet every day by oral route in AM 02/09 completed Not Available Not Available Not Available valacyclovi r 500 mg tablet TAKE 1 TABLET BY MOUTH TWICE DAILY. START 24 HOURS BEFORE PROCEDURE 01/19 completed Not Available Not Available Not Available tramadol 50 mg tablet TAKE 1 TABLET BY MOUTH EVERY 6 HOURS NEEDED 01/19 completed Not Available Not Available Not Available ketorolac 30 mg/mL (1 mL) injection solution Inject 1 mL every 6 hours by intramusc ular route. 06/16 completed Not Available Not Available Not Available cyanocobala min (vit B-12) 500 mcg tablet Take 1 tablet every day by oral route. active Not Available Not Available No t Available meclizine 25 mg tablet TAKE 1 TABLET BY MOUTH TWICE DAILY 01/19 completed Not Available Not Available Not Available triamcinolo ne acetonide 40 mg/mL suspension for injection Take 1 mL by injection route. 02/09 completed Not Available Not Available Not Available cephalexin 500 mg capsule 06/16 completed Not Available Not Available Not Available cyanocobala min (vit B-12) 1,000 mcg/mL injection solution Inject 1 mL every month by subcutane ous route. 02/09 completed Not Available Not Available Not Available levothyroxi ne 125 mcg tablet TAKE 1 TABLET BY MOUTH EVERY DAY 01/19 completed Not Available Not Available Not Available progesteron e micronized 200 mg capsule TAKE 1 CAPSULE BY MOUTH DAILY FOR 15 DAYS DIRECTED active Not Available Not Available No t Available ergocalcife rol (vitamin D2) 1,250 mcg (50,000 unit) capsule Take 1 capsule every week by oral route. 01/19 completed Not Available Not Available Not Available letrozole 2.5 mg tablet TAKE 2 TABLETS BY MOUTH DAILY ON DAYS 5-9 OF CYCLE 01/19 completed Not Available Not Available Not Available methylpredn isolone 4 mg tablets in a dose pack FOLLOW PACKAGE DIRECTION S 02/09 completed Not Available Not Available Not Available albuterol sulfate HFA 90 mcg/actuati on aerosol inhaler INHALE 2 PUFFS BY MOUTH EVERY 4 HOURS NEEDED FOR WHEEZING OR SHORTNESS OF BREATH active Not Available Not Available No t Available Zoloft 100 mg tablet 1 tablet by oral route. active Not Available Not Available No t Available fluticasone propionate 50 mcg/actuati on nasal spray,suspe nsion Cochran 2 sprays every day by intranasa l route. 01/19 completed Not Available Not Available Not Available metformin ER 500 mg tablet,exte nded release 24 hr 01/19 completed Not Available Not Available Not Available sertraline 50 mg tablet Take 1/2 tab PO daily x 1 week, then 1 tab PO daily thereafte r 05/09 completed Not Available Not Available Not Available naproxen 500 mg tablet 06/16 completed Not Available Not Available Not Available levothyroxi ne 112 mcg tablet TAKE 1 TABLET BY MOUTH EVERY DAY 09/03 completed Not Available Not Available Not Available amoxicillin 875 mg-potassiu m clavulanate 125 mg tablet TAKE 1 TABLET BY MOUTH TWICE DAILY 01/16 completed Not Available Not Available Not Available Wellbutrin SR 200 mg tablet, 12 hr sustained-r elease medicatio n:Wellbut rin SR 200 mg tablet, sustained -release 12 hr dose:0 .0 route:PO frequenc y:DAILY active Not Available Not Available No t Available aripiprazol e 15 mg tablet TAKE 1/2 TABLET BY MOUTH EVERY DAY AT BEDTIME active Not Available Not Available No t Available aripiprazol e 5 mg tablet TAKE 1 TABLET BY MOUTH EVERY DAY AT BEDTIME 01/19 completed Not Available Not Available Not Available bupropion HCl XL 300 mg 24 hr tablet, extended release Take 1 tablet every day by oral route in the morning. 02/11 completed Not Available Not Available Not Available bupropion HCl XL 150 mg 24 hr tablet, extended release TAKE 1 TABLET BY MOUTH EVERY DAY IN THE MORNING 01/19 completed Not Available Not Available Not Available aripiprazol e 2 mg tablet TAKE 1 TABLET BY MOUTH EVERY DAY AT BEDTIME FOR 7 DAYS 02/11 completed Not Available Not Available Not Available FeroSul 325 mg (65 mg iron) tablet Take 1 tablet every day by oral route. 01/19 completed Not Available Not Available Not Available ProChamber active Not Available Not Av ailable Not Available Saxenda 3 mg/0.5 mL (18 mg/3 mL) subcutaneou s pen injector active Not Available Not Available Not Available Ozempic 1 mg/dose (2 mg/1.5 mL) subcutaneou s pen injector 02/11 completed Not Available Not Available Not Available Ozempic 0.25 mg or 0.5 mg (2 mg/1.5 mL) subcutaneou s pen injector Inject by subcutane ous route for 28 days. 11/30 completed Not Available Not Available Not Available EluRyng 0.12 mg-0.015 mg/24 hr vaginal ring 01/19 completed Not Available Not Available Not Available Ozempic 1 mg/dose (4 mg/3 mL) subcutaneou s pen injector Inject 1 mg every week by subcutane ous route. 02/11 completed Not Available Not Available Not Available Ozempic 2 mg/dose (8 mg/3 mL) subcutaneou s pen injector INJECT 2 MG UNDER THE SKIN EVERY WEEK 01/19 completed Not Available Not Available Not Available Mounjaro 5 mg/0.5 mL subcutaneou s pen injector Inject 5 mg every week by subcutane ous route. 11/25 completed Not Available Not Available Not Available Mounjaro 2.5 mg/0.5 mL subcutaneou s pen injector INJECT 2.5MG UNDER THE SKIN EVERY WEEK 11/25 completed Not Available Not Available Not Available Breyna 160 mcg-4.5 mcg/actuati on HFA aerosol inhaler INHALE 2 PUFFS BY MOUTH TWICE DAILY. RINSE MOUTH WITH WATER AFTER USE. DO NOT SWALLOW active Not Available Not Available No t Available Vitals Date Recorded Body mass index (BMI) Body height Body weight Provider Name and Address Organization Details Last Updated DateTime 05/25/2022 35 kg/m2 162.56 cm 58723.84 g Not Available [facility] 12/02/2022 02:40:01 Date Recorded Body mass index (BMI) Body height Oxygen saturation Oxygen saturation in Arterial blood by Pulse oximetry Heart rate Body temperature Body weight Systolic blood pressure Diastolic blood pressure Provider Name and Address Organization Details Last Updated DateTime 3 35.5 kg/m2 162.56 cm 98 % 98 % 94 /min 97.5 [degF] 66486.6 2 g 132 mm[Hg] 84 mm[Hg] Not Available [facility] 3 02:39:56 Date Recorded Body height Provider Name an d Address Organization Details Last Updated DateTime 04/24/2022 162.56 cm Not Available [facility] 3 02:39:57 Date Recorded Body height Body mass index (BMI) Body weight Body temperature Heart rate Oxygen saturation Oxygen saturation in Arterial blood by Pulse oximetry Systolic blood pressure Diastolic blood pressure Provider Name and Address Organization Details Last Updated DateTime 3 162.56 cm 34 kg/m2 22130.2 9 g 97.9 [degF] 102 /min 98 % 98 % 116 mm[Hg] 74 mm[Hg] Evelyne Vo MA [facility] [employer] [facility] 3 10:00:46 Date Recorded Body height Body mass index (BMI) Body weight Body temperature Heart rate Oxygen saturation Oxygen saturation in Arterial blood by Pulse oximetry Systolic blood pressure Diastolic blood pressure Provider Name and Address Organization Details Last Updated DateTime 4 162.56 cm 42.2 kg/m2 598338. 72 g 97.9 [degF] 97 /min 97 % 97 % 118 mm[Hg] 72 mm[Hg] Josi Jaimes MA [facility] [employer] [facility] 4 08:58:30 Social History Question Answer Notes LastModified by Organizat ion Details LastModified Time Tobacco Smoking Status Never Smoker Not Available [facility] 12/02/2022 02:30:32 What Is Your Level Of Alcohol Consumption? None [id number] Information not available 12/02/2022 What Is Your Level Of Caffeine Consumption? Moderate [id number].[id number] Information not available 12/02/2022 How Much Tobacco Do You Chew? None [id number].[id number] Information not available 12/02/2022 In The 14 Days Before Symptom Onset, Have You Had Close Contact With A Laboratory-confi rmed COVID-19 While That Case Was Ill? No [id number].[id number] Information not available 12/02/2022 In The 14 Days Before Symptom Onset, Have You Had Close Contact With A Person Who Is Under Investigation For COVID-19 While That Person Was Ill? No [id number].[id number] Information not available 12/02/2022 What Type Of Diet Are You Following? REGULAR [id number].09232 [id number] Information not available 12/02/2022 Which Illicit Or Recreational Drugs Have You Used? None MIGRATION.66797 [id number] Information not available 12/02/2022 Do You Or Have You Ever Used E-cigarettes Or Vape? Never Used Electronic Cigarettes MIGRATION.14444 92985 Information not available 12/02/2022 What Is The Highest Grade Or Level Of School You Have Completed Or The Highest Degree You Have Received? 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 No MIGRATION.23229 93394 Information not available 12/02/2022 What Is The Fluoride Status Of Your Home? Unknown MIGRATION.05573 [id number] Information not available 12/02/2022 Are There Any Guns Present In Your Home? Yes MIGRATION.64701 [id number] Information not available 12/02/2022 Do You Use Insect Repellent Routinely? No MIGRATION.49157 74175 Information not available 12/02/2022 Where Do You Live? SingleLevelHouse MIGRATION.47788 70780 Information not available 12/02/2022 What Was The Date Of Your Most Recent Tobacco Screening? 01/20/2024 Information not available 01/20/2024 How Many Children Do You Have? 0 Information not available 01/20/2024 Do You Have Any Pets? Yes MIGRATION.22787 90535 Information not available 12/02/2022 What Is Your Relationship Status? Information not available 01/20/2024 Do You Use Your Seat Belt Or Car Seat Routinely? Yes MIGRATION.61885 98563 Information not available 12/02/2022 Are You Sexually Active? Yes Information not available 01/20/2024 Do You Have Smoke And Carbon Monoxide Detectors In Your Home? Yes MIGRATION.36280 [id number] Information not available 12/02/2022 Are You Passively Exposed To Smoke? Yes MIGRATION.78370 76732 Information not available 12/02/2022 Do You Or Have You Ever Used Smokeless Tobacco? Never Used Smokeless Tobacco MIGRATION.45240 88253 Information not available 12/02/2022 Are There Any Smokers In Your House? Yes MIGRATION.71089 43205 Information not available 12/02/2022 Do You Feel Stressed (tense, Restless, Nervous, Or Anxious, Or Unable To Sleep At Night)? [id number] MIGRATION.89698 76829 Information not available 12/02/2022 Do You Use Any Illicit Or Recreational Drugs? No Information not available 01/20/2024 Do You Use Sunscreen Routinely? No MIGRATION.89108 77199 Information not available 12/02/2022 Have You Recently Traveled Abroad? No MIGRATION.32649 39137 Information not available 12/02/2022 Do You Have Any Dietary Restrictions? No MIGRATION.49617 94955 Information not available 12/02/2022 Do You Or Have You Ever Used Any Other Forms Of Tobacco Or Nicotine? No MIGRATION.33825 46009 Information not available 12/02/2022 Sex: Female Functional Status Question Answer Note LastModified by Organizat ion Details LastModified Time What is your exercise level? Occasional walking [id number] Information not available 12/02/2022 Mental Status None recorded. Family History Relationship Description Onset Age of this Age Resolved Age Notes LastModified by Organization Details LastModified Time Maternal Grandfather Diabetes mellitus [id number] Not available 12/02/2022 02:37:42 Maternal Grandmother Diabetes mellitus [id number] Not available 12/02/2022 02:37:42 Paternal Grandfather Diabetes mellitus [id number].677 [id number] Not available 12/02/2022 02:37:42 Paternal Grandmother Diabetes mellitus MIGRATION.219 [id number] Not available 12/02/2022 02:37:42 Notes:MOTHER-KIDNEY Medical History Condition Response NERVE DISEASE N BLINDNESS N RHEUMATIC FEVER N KIDNEY STONES N BLADDER PROBLEMS N MRSA N OTHER # 1 N POLIO N LUNG DISEASE/DISORDER N RADIATION / CHEMOTHERAPY N COPD N Other # 2 N BLOOD DISEASES N SURGERY N EAR OR HEARING PROBLEMS N MUMPS N BOWEL PROBLEMS N DEPRESSION (INCLUDING POST ) N STROKE/TIA N ULCERS N BENIGN PROSTATIC HYPERPLASIA N MEASLES N MYOCARDIAL INFARCTION N OBESITY Y GERD/NAUSEA N ANEURYSM N URINARY/BLADDER/KIDNEY PROBLEMS N CORONARY ARTERY DISEASE (CAD) N ADDICTION CONCERNS N ENDOMETRIOSIS N Impotence N USE OF BLOOD THINNERS N SKIN PROBLEMS N GASTROINTESTINAL DISORDER N PERIPHERAL VASCULAR DISEASE N MUSCLE,JOINT OR BONE PROBLEMS N GASTROINTESTINAL BLEEDING N BLOOD CLOTS N ASTHMA N CATARACTS N ERECTILE DYSFUNCTION N VARICOSITIES N GI PROBLEMS N Low Testosterone N INFERTILITY N AIDS/HIV N CHEMOTHERAPY / RADIATION N LIVER DISEASE N MALE HYPOGONADISM N HYPERTENSION N Deficiency N ANXIETY DISORDER N BLOOD TRANSFUSION N ANEMIA/BLOOD DISORDER N CHRONIC EAR INFECTIONS N BRONCHITIS N TUBERCULOSIS N GLAUCOMA N FOOT PROBLEM N DIVERTICULITIS N SLEEP APNEA N CHICKENPOX N INFECTIOUS DISEASE N HEART ARRHYTHMIA N PROSTATE N INSOMNIA N HIGH CHOLESTEROL / HYPERLIPIDEMIA N HYPERTHYROIDISM Y EYE PROBLEMS N NEUROLOGICAL PROBLEMS N EDEMA N CHRONIC PAIN SYNDROME N HYPOTHYROIDISM N CAROTID BLOCKAGE N CONSTIPATION N BACK / NECK PROBLEMS N HAVE YOU BEEN HOSPITALIZED OR SEEN IN [facility] ER IN THE PAST YEAR ? N ATHEROSCLEROSIS N BREAST PROBLEMS N DIALYSIS N ECZEMA N OSTEOPOROSIS N ARTHRITIS N APPENDICITIS N DIABETES, TYPE N BAD TEETH N ENT N HEARTBURN / REFLUX Y AUTISM SPECTRUM DISORDER (ASD) N HEPATITIS / LIVER DISEASE N GOUT N SLEEP DISORDER N ALZHEIMER'S DISEASE N Brain Problems N HERPES N DEMENTIA N HEADACHES/MIGRAINES N SEIZURES/EPILEPSY N VASCULAR DISEASE N PACEMAKER N Blood Disorder N DIZZINESS N HEART DISEASE/HEART PROBLEMS N KIDNEY DISEASE N MULTIPLE SCLEROSIS N CARDIAC ARRHYTHMIA N CANCER: SPECIFY N ATRIAL FIBRILLATION N Gall Stones N PULMONARY EMBOLISM N AUTOIMMUNE DISEASE N Gynecological History Statement/Question Response How many live births 0 Abnormal Pap Y Date of LMP 12/14/2023 Menses Monthly Y Date of Last Pap Date of Last Pap Smear Current Control Method None Age at Menarche 14 Obstetrics History GPAL:G 1 P 1 0 0 1 Type Value Multiple Births 0 Full Term 1 Induced 0 Spontaneous 0 Premature 0 Living 1 Ectopics 0 Total 1 Immunizations Vaccine Type Date Status Note Provider Nam e and Address Organization Details Recorded Time COVID-19, mRNA, LNP-S, PF, 100 mcg/0.5mL dose or 50 mcg/0.25mL dose 1 completed Yahaira Key APRN [address] [facility] [facility] [address], [place], [address], [employer] [facility] [employer] 02/14/2024 07:56:12 COVID-19, mRNA, LNP-S, PF, 30 mcg/0.3 mL dose 1 completed Yahaira Key APRN [address], [place], [address], [employer] [facility] [employer] 02/14/2024 07:56:12 COVID-19, mRNA, LNP-S, PF, 30 mcg/0.3 mL dose 1 completed Yahaira Key APRN [address], [address], [place], [address], [facility] [employer] [facility] [place] [employer] [facility] 02/14/2024 07:56:12 Influenza, split virus, quadrivalent, preservative 0 completed Not Available [facility] 04/06/2023 00:20:58 IPV 7 completed Yahaira Key APRN [address], [address], [place], [address], [facility] [employer] [facility] [employer] [facility] 02/14/2024 07:56:12 IPV 7 completed Yahaira Key APRN [address], [address], [place], [address], [facility] [employer] [facility] [employer] [facility] 02/14/2024 07:56:12 IPV 8 completed [address], [place], [address], [facility] [employer] [facility] [employer] [facility] 02/14/2024 07:56:12 IPV 7 completed [address], [place], [address], [facility] [employer] [facility] [employer] [facility] 02/14/2024 07:56:12 IPV [address], [place], [address], [facility] [employer] [facility] [employer] [facility] 02/14/2024 07:56:12 MMR 8 completed [address], [place], [address], [facility] [employer] [facility] 02/14/2024 07:56:12 MMR 2 completed [address], [place], [address], [facility] [employer] [facility] 02/14/2024 07:56:12 COVID-19, mRNA, LNP-S, PF, 30 mcg/0.3 mL dose 1 completed [address], [place], [address], [facility] 02/14/2024 07:56:12 COVID-19, mRNA, LNP-S, PF, 30 mcg/0.3 mL dose 1 completed Yahaira Key APRN [address], [address], [place], [address], [facility] 02/14/2024 07:56:12 COVID-19, mRNA, LNP-S, PF, 30 mcg/0.3 mL dose 1 completed Yahaira Key APRN [address], [address], [place], [address], [facility] 02/14/2024 07:56:12 influenza, unspecified formulation 9 completed [address], [place], [address], [facility] 02/14/2024 07:56:12 Tdap 0 completed DANI[address], [place], [address], [facility] 02/14/2024 07:56:12 Tdap 7 completed [address], [place], [address], [facility] 02/14/2024 07:56:12 HPV, quadrivalent 0 completed [address], [place], [address], [facility] 02/14/2024 07:56:12 HPV, quadrivalent 9 completed [address], [place], [address], [facility] 02/14/2024 07:56:12 HPV, quadrivalent 9 completed Yahaira Key APRN [address], [address], [place], [address], [facility] [employer] [facility] 02/14/2024 07:56:12 Hep B, adolescent or pediatric 7 completed Yahaira Key APRN [address], [place], [address], [facility] [employer] [facility] [employer] [facility] 02/14/2024 07:56:12 Hep B, adolescent or pediatric 7 completed Yahaira Key APRN [address], [address], [place], [address], [facility] [employer] [facility] [employer] [facility] 02/14/2024 07:56:12 Hep B, adolescent or pediatric 7 completed Yahaira Key APRN [address], [address], [place], [address], [facility] [employer] [facility] [employer] [facility] 02/14/2024 07:56:12 Hib (PRP-OMP) 7 completed Yahaira Key APRN [address], [address], [place], [address], [facility] [employer] [facility] [employer] [facility] 02/14/2024 07:56:12 Hib (PRP-OMP) 8 completed Yahaira Key APRN [address], [address], [place], [address], [facility] [employer] [facility] [employer] [facility] 02/14/2024 07:56:12 Hib (PRP-OMP) 7 completed Yahaira Key APRN [address], [place], [address], [facility] [employer] [facility] [employer] [facility] 02/14/2024 07:56:13 Hib (PRP-OMP) 7 completed Yahaira Key APRN [address], [place], [address], [facility] [employer] [facility] [employer] [facility] 02/14/2024 07:56:13 meningococcal MCV4P 4 completed Yahaira Key APRN [address], [place], [address], [facility] [employer] [facility] 02/14/2024 07:56:13 DTaP 7 completed Yahaira Key APRN [address], [address], [place], [address], [facility] 02/14/2024 07:56:13 DTaP 7 completed Yahaira Key APRN [address], [place], [address], [facility] 02/14/2024 07:56:13 DTaP 8 completed Yahaira Key APRN [address], [place], [address], [facility] 02/14/2024 07:56:13 DTaP [address], [place], [address], [facility] 02/14/2024 07:56:13 DTaP [address], [place], [address], [facility] 02/14/2024 07:56:13 Influenza, split virus, quadrivalent, PF 7 laura Key APRN [address], [place], [address], [facility] 02/14/2024 07:56:13 Influenza, split virus, quadrivalent, PF 4 completed [address], [place], [address], [facility] 02/14/2024 07:56:13 Influenza, split virus, quadrivalent, PF 8 laura Key APRN [address], [place], [address], [facility] 02/14/2024 07:56:13 Past Encounters Encounter ID Performer Location Encounter Start Date Encounter Closed Date Diagnosis/Indication Diagnosis SNOMED-CT Code Diagnosis ICD10 Code Diagnosis Note [id number] [facility] [address] [place] [address] 12/30/2020 00:00:00 12/30/2020 17:10:29 [id number] [facility] [address] [place] [address] 01/27/2021 00:00:00 01/27/2021 16:57:28 [id number] [facility] [address] [place] [address] 02/21/2021 00:00:00 02/21/2021 14:00:05 [id number] [facility] [address] [place] [address] 03/21/2021 00:00:00 03/21/2021 17:57:49 [id number] [facility] [address] [place] [address] 05/15/2021 00:00:00 05/15/2021 17:57:01 [id number] [facility] [address] [place] [address] 05/29/2021 00:00:00 05/30/2021 13:07:44 [id number] [facility] [address] [place] [address] 06/16/2021 00:00:00 06/16/2021 21:29:29 [id number] [facility] [address] [place] [address] 07/24/2021 00:00:00 07/25/2021 13:11:45 [id number] [facility] [address] [place] [address] 09/16/2021 00:00:00 09/16/2021 19:13:23 [id number] [facility] [address] [place] [address] [address] [place] [address] 11/21/2021 00:00:00 11/21/2021 15:00:47 [id number] [facility] [address] [place], [place] [address]., [address] [address] 12/26/2021 00:00:00 12/26/2021 11:12:25 [id number] [facility] [address] [place], [place] [address]., [address] [address] 02/02/2022 00:00:00 02/02/2022 14:33:52 [id number] [facility] [address] [place], [place] [address]., [address] [address] 02/09/2022 00:00:00 02/09/2022 15:40:50 [id number] [facility] [address] [place], [place] [address]., [address] [address] 03/09/2022 00:00:00 03/09/2022 15:29:51 [id number] [facility] [address] [address] 04/24/2022 00:00:00 04/24/2022 13:27:36 [id number] [facility] [address] [address] 05/25/2022 00:00:00 05/25/2022 13:31:16 [id number] [facility] [address] [address] 10/08/2022 00:00:00 10/08/2022 10:33:54 [id number] SANDEE Dillon [facility] [address] [address] 02/11/2023 09:46:36 02/11/2023 10:21:13 Sleep apnea 17713794 G47.30 has decided not to do in lab study Hypothyroidism 02416122 E03.9 on levothyrox ine Insulin resistance 60237 5000 E88.81 on metformin, ozempic pt is aware of side effects, risks, benefitspt denies any personal or family history of MEN II or MTC, denies and personal history of pancreatit ispt knows to call the office if any severe n/v or abdominal pain Iron deficiency 72051926 E61.1 on supplement Vitamin D deficiency 347 95125 E55.9 on supplement Cobalamin deficiency 190 207311 E53.8 on supplement Mixed anxi 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 Juares's officeon sertraline , wellbutrin , abilifycal l office if any change in mood or behaviorco ntinue counseling with therapist (Nura Maldonado) Obesity 847953051 E66.9 recommend healthy, well balanced mealsfocus on lean meats, fresh vegetables , fresh fruits, whole grainsredu ce fast/proce ssed foods or eating out to no more than 1-2 times per weekaim to get 30 min of exercise most days of the week- walking is a great choicealso recommend resistance training 2-3 times per week we had a long discussion about nutrition, how to figure out TDEE, and how to work to be in a mild deficit without crash dietingrec ommend TDEEcalcul ator.net to figure out TDEE, aim to get 200-300 cals below TDEE for sustainabl e weight loss- gave patient her printout and discussedw e discussed the importance of protein, we discussed macros and how to count themthe importance of daily fitness was discussed, including the importance of resistance trainingon line nutrition resources shared with patient recommend she switch SSB to diet drinks Adult [facility] th examination 121095809 Z00.00 Hyperlipid emia screening 040712024 Z13.220 Diabetes m ellitus screening 510507939 Z13.1 Depression screening 171 624160 Z13.31 [id number] Yahaira Key APRN [facility] Internal [facility] [address] [place] [address] 01/20/2024 08:48:33 01/20/2024 09:16:59 Hypothyroidism 91965723 E03.9 Cobalamin deficiency 190 767371 E53.8 Insulin resistance 24602 5000 E88.819 Iron deficiency 55753416 E61.1 Vitamin D deficiency 347 21954 E55.9 Obesity 908226287 E66.9 Health Concerns Section Related Observation LastModified by Organization Detai ls LastModified Time None Recorded Concern Status LastModified by Organization Details LastModified Time None Recorded Advance Directives Directive None Recorded Payers Encounter Date Sequence Insurance Name Policy Number Policy Osorio Covered Member ID Osorio Member ID Guarantor Name 02/11/2023 1 [facility] [place] [id number] Yosef Ramírez Raudel [id number] [employer]ad[employer] Ramírez Raudel 01/20/2024 1 [facility] [id number] Drake Ramírez Raudel [id number] Drake Darrell Raudel Notes Date Note Type Note Provider Name and Address Organization Details Recorded Time 02/11/2023 text/html Drake present s today for follow up. She is also due for annual wellness. She has been seeing the psychiatrist for about 4 months now. They have changed up her mood medication. She is feeling much better overall. She feels like her mood is in a much better place. She denies any SI or HI today. She is tolerating the Ozempic well. She is struggling to lose weight. She is not tracking her food. She is not getting any exercise right now. She does admit to drinking sugar sweetened beverages. She is due for labs. Melisa Kern, [employer] OPERATOR-C [address] [place] [address], [address], [address], [facility] [employer] [facility] 02/11/2023 10:28:56 01/20/2024 text/html Cesar present s today to establish care. She states that she is going through fertility treatments and needs to maintain her thyroid medication. She states her anxiety and depression are under control. She does not wear a CPAP for sleep apnea. 02/11/2023Cesar presents today for follow up. She is also due for annual wellness. She has been seeing the psychiatrist for about 4 months now. They have changed up her mood medication. She is feeling much better overall. She feels like her mood is in a much better place. She denies any SI or HI today. She is tolerating the Ozempic well. She is struggling to lose weight. She is not tracking her food. She is not getting any exercise right now. She does admit to drinking sugar sweetened beverages. She is due for labs. Yahaira Key, NUCLEAR INSTRUCTOR [address] [facility], [facility] [address], [place], [address], [facility] 01/20/2024 09:15:04 OBGyn Episode No OBEpisode recorded.
--- OUTSIDE RECORDS SUMMARY | 2024-10-26 11:23 | XMS_ITS | Referral Summary ---
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
== END 2024-10-25 12:35 | disposition home or self-care (01) | DRG 807 ==
LOC: ANHLDR 18:28 → ANHOB2 20:41
PROVIDERS: Admitting Provider Obstetrics & Gynecology; PCP Nurse Practitioner Family; Visit Provider Obstetrics & Gynecology
DX: O13.4 Gestational [pregnancy-induced] hypertension without significant proteinuria, complicating childbirth (principal); Z37.0 Single live birth; Z3A.38 38 weeks gestation of pregnancy; O24.420 Gestational diabetes mellitus in childbirth, diet controlled; O70.0 First degree perineal laceration during delivery; O99.284 Endocrine, nutritional and metabolic diseases complicating childbirth; E03.9 Hypothyroidism, unspecified; Z23 Encounter for immunization
CPT/HCPCS: 36415; 80053; 82948; 84550; 85014; 85018; 85025; 86592; 86703; 86850; 86900; 86901; 90715; A9270; G0432; J2590; J2795; J7120

== ENCOUNTER 2025-03-22 08:13 | Outpatient (CLI) | payer BC, SELFPAY ==
--- OUTSIDE RECORDS SUMMARY | 2025-03-22 08:19 | XMS_ITS | Data Portability ---
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 Lab iron + total iron-christina ng capacity (TIBC), serum 2023 024 [facility] (Lab), [address] [place], [address], 4 08:06:06 ferritin, serum or plasma 2023 024 [facility] (Lab), [address] [place], [address], 4 08:06:06 vitamin D, 25-hydroxy , total, serum 2023 024 [facility] (Lab), [address] [place], [address], 4 08:06:06 glycohemog lobin, total, blood 2023 024 [facility] (Lab), [address] [place], [address], 4 08:06:06 TSH, serum or plasma 2023 024 [facility] (Lab), [address] [place], [address], 4 11:31:05 T4, free, serum 2023 024 [facility] (Lab), [address] [place], [address], 4 08:06:05 CBC 2023 024 [facility] (Lab), [address] [place], [address], 4 08:06:06 lipid panel, serum 2023 024 [facility] (Lab), [address] [place], [address], 4 08:06:06 CMP, serum or plasma 2023 024 [facility] (Lab), [address] [place], [address], 4 08:08:24 vitamin B12 + folate, serum or blood 2023 024 [facility] (Lab), [address] [place], [address], 4 08:06:05 iron + total iron-christina ng capacity (TIBC), serum 2022 023 [facility] (Lab), [address] [place], [address], 3 12:50:11 ferritin, serum or plasma 2022 023 [facility] (Lab), [address] [place], [address], 3 13:22:22 lipid panel, serum 2022 023 [facility] (Lab), [address] [place], [address], 3 12:50:08 CBC w/ auto diff 2022 023 [facility] (Lab), [address] [place], [address], 3 12:31:40 CMP, serum or plasma 2022 023 [facility] (Lab), [address] [place], [address], 3 12:50:05 vitamin D, 25-hydroxy , total, serum [email or web address] (Lab), [address] [place], [address], 3 10:56:28 glycohemog lobin, total, blood 2022 023 [facility] (Lab), [address] [place], [address], 3 12:47:35 TSH, serum or plasma 2022 023 [facility] (Lab), [address] [place], [address], 3 13:22:03 T4, free, serum 2022 023 [facility] (Lab), [address] [place], [address], 3 13:07:19 vitamin B12 + folate, serum or blood 2022 023 [email or web address] [facility] (Lab), [address], [place], [address], 10:56:28 Referral None recorded. Procedures None recorded. Surgeries None recorded. Imaging None recorded. Medication Orders tramadol 50 mg tablet 2024 025 [email or web address] [facility] #[id number], [address], [place], [address], 5 09:37:36 levothyrox ine 137 mcg tablet 2023 024 [email or web address] [id number], [address], [place], [place], [id number], 11:22:19 Patient TargetsNo targets recorded. Patient Instructions Encounter Date Encounter Id Patient Instructions Last Modified By Organization Details Last Modified Time 02/11/2023 [id number] INFLUENZA VACCIN E Your next one in the fall of 2022 TD/TDAP Patient will get at local pharmacy/health department MAMMOGRAM No screening indicated at this time/ no family history CERVICAL SCREENING/PELVIC EXAMINATION No screening necessary patient is up to date COLORECTAL SCREENING No screening necessary until age 45 DEPRESSION SCREENING Continue current medication BMI Obesity Continue healthy eating & exercise NUTRITION Continue healthy eating & exercise PHYSICAL ACTIVITY Need more activity Recommendation of 30 minutes of daily activity VISION Recommended today ALCOHOL USE Occasional/Social Use TOBACCO USE non smoker SEXUALLY ACTIVE Yes, Patient is in monogamous relationship GLUCOSE SCREENING Ordered LIPID SCREENING Ordered [email or web address] Not available 02/11/2023 10:28:20 01/20/2024 [id number] Follow up in 6 month and as needed Obtain labs Medications sent to pharmacy [email or web address] Not available 01/20/2024 09:15:00 Reason for Referral None Reported. Results Created Date Observation Date Name Description Value Unit Range Abnormal Flag Note LastModifiedBy Organization Detail LastModifiedTime 10/01/20 22 10/02/2022 THYRO ID PEROX IDASE (TPO) AB thyroid peroxidase (tpo) Ab >600 IU/mL 0-34 high [facility] [address], [place] [address] Lab Direc tor: Giovanni hutchins PhD, Phone : [phone] Not Available [facility] (Lab) [address] [place], [address], 10/02/2022 09:11:04 10/01/20 22 10/02/2022 INSUL IN insulin 12.3 uIU/m L 2.6-24 .9 Perfo rmed at: - [facility] n [address], [place] [address] Lab Direc tor: Giovanni hutchins PhD, Phone : [phone] Not Available [facility] (Lab) [address] [place], [address], 10/02/2022 09:11:01 10/01/20 22 10/01/2022 HEMOG LOBIN A1C HA1C 5.0 % 4.0-6. 0 Diabe faye Scree sarah Crite beto: <5.7% Consi stent with absen ce of diabe faye 5.7-6 .4% Consi stent with incre ased risk for diabe faye (pred iabet es) >OR=6 .5% Consi stent with diabe faye REFER ENCE: Diabe faye Care 2016, 39(Rosales ppl.1 ):s13 -s22 Not Available [facility] (Lab) [address] [place], [address], 10/01/2022 20:48:50 10/01/20 22 10/01/2022 FOLAT E, SERUM /PLAS MA folate 5.35 NG/mL 2.76-2 0.0 Not Available [facility] (Lab) [address] [place], [address], 10/01/2022 19:06:11 10/01/20 22 10/01/2022 VITAM IN B12 (NICOLE GERTRUDE ) vb12 405 pg/mL 239-93 1 Not Available [facility] (Lab) [address] [place], [address], 10/01/2022 19:06:00 10/01/20 22 10/01/2022 LIZBET TIN ferritin 46 NG/mL 6.24-1 37 Not Available [facility] (Lab) [address] [place], [address], 10/01/2022 18:37:12 10/01/20 22 10/01/2022 TSH thyroid-stim ulating hormone 3.330 uIU/m L 0.465- 4.680 Not Available [facility] (Lab) [address] [place], [address], 10/01/2022 18:37:01 10/01/20 22 10/01/2022 T3 FREE free T3 3.6 pg/mL 2.77-5 .27 Not Available [facility] (Lab) [address] [place], [address], 10/01/2022 18:36:43 10/01/20 22 10/01/2022 T4 FREE free T4 0.99 NG/dL 0.78-2 .19 Not Available [facility] (Lab) [address] [place], [address], 10/01/2022 18:36:41 10/01/20 22 10/01/2022 VITAM IN D 25-HY DROXY vd25oh 21.4 NG/mL 30-100 low Vitam in D Statu s: Defic ient: <20 ng/mL Insuf ficie nt: 20-29 ng/mL Suffi cient : 30-10 0 ng/mL Not Available [facility] (Lab) [address] [place], [address], 10/01/2022 18:35:51 10/01/20 22 10/01/2022 IRON/ TIBC PANEL total iron binding capacity 308 mcg/d L 265-47 5 Not Available [facility] (Lab) [address] [place], [address], 10/01/2022 18:04:25 10/01/20 22 10/01/2022 IRON/ TIBC PANEL % transferrin saturation 20 % 20-55 Not Available [facility] (Lab) [address] [place], [address], 10/01/2022 18:04:25 10/01/20 22 10/01/2022 IRON/ TIBC PANEL unsaturated iron bind capacity 246 mcg/d L 126-38 2 Not Available [facility] (Lab) [address] [place], [address], 10/01/2022 18:04:25 10/01/20 22 10/01/2022 IRON/ TIBC PANEL iron 62 mcg/d L 42-175 Not Available [facility] (Lab) [address] [place], [address], 10/01/2022 18:04:25 10/01/20 22 10/01/2022 LIPID PANEL [...] WILL NOT BE REPOR DAVID. Not Available [facility] (Lab) [address] [place], [address], 10/01/2022 18:01:08 10/01/20 22 10/01/2022 LIPID PANEL cholesterol 181 mg/dL 140-19 9 NIH DARSHAN NSUS RECOM MENDA TION FOR MAGY STERO L: ADULT CHILD LOW RISK: <200 <170 BORDE RLINE : <200- 239 ----- HIGH RISK: >240 >200 Not Available [facility] (Lab) [address] [place], [address], 10/01/2022 18:01:08 10/01/20 22 10/01/2022 LIPID PANEL triglyceride s 101 mg/dL 0-150 NIH DARSHAN NSUS REPOR T RECOM MENDA TION FOR TRIGL YCERI LATOSHA: ADULT CHILD LOW RISK: <150 ----- BODER LINE: 150-1 99 ----- HIGH RISK: >200 ----- Not Available [facility] (Lab) [address] [place], [address], 10/01/2022 18:01:08 10/01/20 22 10/01/2022 LIPID PANEL HDL cholesterol 51 mg/dL 40- Not Available [facility] (Lab) [address] [place], [address], 10/01/2022 18:01:08 10/01/20 22 10/01/2022 COMPR EHENS KOKO METAB OLIC PANEL total protein 7.6 g/dL 6.3-8. 2 Not Available [facility] (Lab) [address] [place], [address], 10/01/2022 18:01:05 10/01/20 22 10/01/2022 COMPR EHENS KOKO METAB OLIC PANEL alanine aminotransfe rase 23 U/L 0-35 Not Available [facility] (Lab) [address] [place], [address], 10/01/2022 18:01:05 10/01/20 22 10/01/2022 COMPR EHENS KOKO METAB OLIC PANEL aspartate aminotransfe rase 26 U/L 15-37 Not Available [facility] (Lab) [address] [place], [address], 10/01/2022 18:01:05 10/01/20 22 10/01/2022 COMPR EHENS KOKO METAB OLIC PANEL bilirubin, total 0.50 mg/dL 0.20-1 .30 Not Available [facility] (Lab) [address] [place], [address], 10/01/2022 18:01:05 10/01/20 22 10/01/2022 COMPR EHENS KOKO METAB OLIC PANEL calcium 9.3 mg/dL 8.4-10 .2 Not Available [facility] (Lab) [address] [place], [address], 10/01/2022 18:01:05 10/01/20 22 10/01/2022 COMPR EHENS KOKO METAB OLIC PANEL albumin 4.4 g/dL 3.4-5. 0 Not Available [facility] (Lab) [address] [place], [address], 10/01/2022 18:01:05 10/01/20 22 10/01/2022 COMPR EHENS KOKO METAB OLIC PANEL globulin 3.2 g/dL 2.6-4. 2 Not Available [facility] (Lab) [address] [place], [address], 10/01/2022 18:01:05 10/01/20 22 10/01/2022 COMPR EHENS KOKO METAB OLIC PANEL A/G ratio 1.4 ratio 1.0-2. 0 Not Available [facility] (Lab) [address] [place], [address], 10/01/2022 18:01:05 10/01/20 22 10/01/2022 COMPR EHENS KOKO METAB OLIC PANEL sodium 138 mmol/ L 137-14 5 Not Available [facility] (Lab) [address] [place], [address], 10/01/2022 18:01:05 10/01/20 22 10/01/2022 COMPR EHENS KOKO METAB OLIC PANEL potassium 4.0 mmol/ L 3.5-5. 1 Not Available [facility] (Lab) [address] [place], [address], 10/01/2022 18:01:05 10/01/20 22 10/01/2022 COMPR EHENS KOKO METAB OLIC PANEL chloride 101 mmol/ L 98-107 Not Available [facility] (Lab) [address] [place], [address], 10/01/2022 18:01:05 10/01/20 22 10/01/2022 COMPR EHENS KOKO METAB OLIC PANEL carbon dioxide 27 mmol/ L 22-30 Not Available [facility] (Lab) [address] [place], [address], 10/01/2022 18:01:05 10/01/20 22 10/01/2022 COMPR EHENS KOKO METAB OLIC PANEL anion gap 14.0 mmol/ L 14-22 Not Available [facility] (Lab) [address] [place], [address], 10/01/2022 18:01:05 10/01/20 22 10/01/2022 COMPR EHENS KOKO METAB OLIC PANEL glucose 87 mg/dL 70-99 Not Available [facility] (Lab) [address] [facility], [address], 10/01/2022 18:01:05 10/01/20 22 10/01/2022 COMPR EHENS KOKO METAB OLIC PANEL BUN 10 mg/dL 8-19 Not Available [facility] (Lab) [address] [place], [address], 10/01/2022 18:01:05 10/01/20 22 10/01/2022 COMPR EHENS KOKO METAB OLIC PANEL creatinine 0.89 mg/dL 0.66-1 .25 Not Available [facility] (Lab) [address] [facility], [address], 10/01/2022 18:01:05 10/01/20 22 10/01/2022 COMPR EHENS KOKO METAB OLIC PANEL GFR >60 Refer ence Range : [place] ge GFR Healt hy Adult : >60 [...] calcu lator is avail able on the [facility] websi te: https ://neto w.jose m weeks.o rg/pr ofess ional s/kdo qi/gf r_cal culat or Not Available [facility] (Lab) [address] [place], [address], 10/01/2022 18:01:05 10/01/20 22 10/01/2022 COMPR EHENS KOKO METAB OLIC PANEL alkaline phosphatase 102 U/L 38-126 Not Available [facility] (Lab) [address] [place], [address], 10/01/2022 18:01:05 10/01/2010/01/2022 CBC/C OMPLE TE BLD COUNT W/DIF F mean red cell volume 89.2 fL 82.0-9 9.0 Not Available [facility] (Lab) [address] [place], [address], 10/01/2022 18:01:03 10/01/20 22 10/01/2022 CBC/C OMPLE TE BLD COUNT W/DIF F red blood cells 4.89 x10'6 /uL 3.80-5 .20 Not Available [facility] (Lab) [address] [facility], [address], 10/01/2022 18:01:03 10/01/20 22 10/01/2022 CBC/C OMPLE TE BLD COUNT W/DIF F hemoglobin 14.2 g/dL 12.0-1 5.6 Not Available [facility] (Lab) [address] [place], [address], 10/01/2022 18:01:03 10/01/20 22 10/01/2022 CBC/C OMPLE TE BLD COUNT W/DIF F hematocrit 43.6 % 35.7-4 5.7 Not Available [facility] (Lab) [address] [place], [address], 10/01/2022 18:01:03 10/01/20 22 10/01/2022 CBC/C OMPLE TE BLD COUNT W/DIF F mean red cell hemoglobin 29.0 pg 27.0-3 3.0 Not Available [facility] (Lab) [address] [place], [address], 10/01/2022 18:01:03 10/01/20 22 10/01/2022 CBC/C OMPLE TE BLD COUNT W/DIF F mean RBC HGB concentratio n 32.6 g/dL 31.0-3 6.0 Not Available [facility] (Lab) [address] [place], [address], 10/01/2022 18:01:03 10/01/20 22 10/01/2022 CBC/C OMPLE TE BLD COUNT W/DIF F red cell distribution width 13.6 % 11.8-1 5.5 Not Available [facility] (Lab) [address] [place], [address], 10/01/2022 18:01:03 10/01/20 22 10/01/2022 CBC/C OMPLE TE BLD COUNT W/DIF F platelets 258 x10'3 /uL 150-40 0 Not Available [facility] (Lab) [address] [place], [address], 10/01/2022 18:01:03 10/01/20 22 10/01/2022 CBC/C OMPLE TE BLD COUNT W/DIF F mean platelet volume 10.2 fL 9.0-12 .4 Not Available [facility] (Lab) [address] [facility], [address], 10/01/2022 18:01:03 10/01/20 22 10/01/2022 CBC/C OMPLE TE BLD COUNT W/DIF F neutrophils 61.7 % 39.0-7 2.0 Not Available [facility] (Lab) [address] [place], [address], 10/01/2022 18:01:03 10/01/20 22 10/01/2022 CBC/C OMPLE TE BLD COUNT W/DIF F lymphocytes 27.4 % 16.0-4 7.0 Not Available [facility] (Lab) [address] [place], [address], 10/01/2022 18:01:03 10/01/20 22 10/01/2022 CBC/C OMPLE TE BLD COUNT W/DIF F monocytes 7.5 % 5.0-12 .0 Not Available [facility] (Lab) [address] [place], [address], 10/01/2022 18:01:03 10/01/20 22 10/01/2022 CBC/C OMPLE TE BLD COUNT W/DIF F eosinophils 2.5 % 1.0-7. 0 Not Available [facility] (Lab) [address] [place], [address], 10/01/2022 18:01:03 10/01/20 22 10/01/2022 CBC/C OMPLE TE BLD COUNT W/DIF F basophils 0.8 % 0.0-2. 0 Not Available [facility] (Lab) [address] [place], [address], 10/01/2022 18:01:03 10/01/20 22 10/01/2022 CBC/C OMPLE TE BLD COUNT W/DIF F immature granulocytes 0.1 % 0.00-0 .50 Not Available [facility] (Lab) [address] [place], [address], 10/01/2022 18:01:03 10/01/20 22 10/01/2022 CBC/C OMPLE TE BLD COUNT W/DIF F neutrophils, absolute count 5.58 x10'3 /uL 1.5-8. 0 Not Available [facility] (Lab) [address] [place], [address], 10/01/2022 18:01:03 10/01/20 22 10/01/2022 CBC/C OMPLE TE BLD COUNT W/DIF F lymphocytes, absolute count 2.48 x10'3 /uL 1.07-3 .43 Not Available [facility] (Lab) [address] [place], [address], 10/01/2022 18:01:03 10/01/20 22 10/01/2022 CBC/C OMPLE TE BLD COUNT W/DIF F monocytes, absolute count 0.68 x10'3 /uL 0.29-0 .99 Not Available [facility] (Lab) [address] [place], [address], 10/01/2022 18:01:03 10/01/20 22 10/01/2022 CBC/C OMPLE TE BLD COUNT W/DIF F eosinophils, absolute count 0.23 x10'3 /uL 0.02-0 .53 Not Available [facility] (Lab) [address] [facility], [address], 10/01/2022 18:01:03 10/01/20 22 10/01/2022 CBC/C OMPLE TE BLD COUNT W/DIF F basophils, absolute count 0.07 x10'3 /uL 0.01-0 .08 Not Available [facility] (Lab) [address] [place], [address], 10/01/2022 18:01:03 10/01/20 22 10/01/2022 CBC/C OMPLE TE BLD COUNT W/DIF F immature granulocytes ,absolute 0.01 x10'3 /uL 0.00-0 .05 Not Available [facility] (Lab) [address] [place], [address], 10/01/2022 18:01:03 10/01/20 22 10/01/2022 CBC/C OMPLE TE BLD COUNT W/DIF F nucleated red blood cells 0.0 % -0 Not Available [facility] (Lab) [address] [place], [address], 10/01/2022 18:01:03 10/01/20 22 10/01/2022 CBC/C OMPLE TE BLD COUNT W/DIF F NRBC# 0.00 x10'3 /uL Not Available [facility] (Lab) [address] [place], [address], 10/01/2022 18:01:03 10/01/20 22 10/01/2022 CBC/C OMPLE TE BLD COUNT W/DIF F white blood cells 9.1 x10'3 /uL 4.2-10 .8 Not Available [facility] (Lab) [address] [place], [address], 10/01/2022 18:01:03 04/02/20 23 04/02/2023 CBC/C OMPLE TE BLD COUNT W/DIF F white blood cells 7.5 x10'3 /uL 4.2-10 .8 Not Available [facility] (Lab) [address] [place], [address], 04/02/2023 12:31:40 04/02/20 23 04/02/2023 CBC/C OMPLE TE BLD COUNT W/DIF F red blood cells 4.33 x10'6 /uL 3.80-5 .20 Not Available [facility] (Lab) [address] [place], [address], 04/02/2023 12:31:40 04/02/2004/02/2023 CBC/C OMPLE TE BLD COUNT W/DIF F hemoglobin 12.6 g/dL 12.0-1 5.6 Not Available [facility] (Lab) [address] [place], [address], 04/02/2023 12:31:40 04/02/20 23 04/02/2023 CBC/C OMPLE TE BLD COUNT W/DIF F hematocrit 38.8 % 35.7-4 5.7 Not Available [facility] (Lab) [address] [place], [address], 04/02/2023 12:31:40 04/02/20 23 04/02/2023 CBC/C OMPLE TE BLD COUNT W/DIF F mean red cell volume 89.6 fL 82.0-9 9.0 Not Available [facility] (Lab) [address] [place], [address], 04/02/2023 12:31:40 04/02/20 23 04/02/2023 CBC/C OMPLE TE BLD COUNT W/DIF F mean red cell hemoglobin 29.1 pg 27.0-3 3.0 Not Available [facility] (Lab) [address] [place], [address], 04/02/2023 12:31:40 04/02/20 23 04/02/2023 CBC/C OMPLE TE BLD COUNT W/DIF F mean RBC HGB concentratio n 32.5 g/dL 31.0-3 6.0 Not Available [facility] (Lab) [address] [place], [address], 04/02/2023 12:31:40 04/02/20 23 04/02/2023 CBC/C OMPLE TE BLD COUNT W/DIF F red cell distribution width 14.2 % 11.8-1 5.5 Not Available [facility] (Lab) [address] [place], [address], 04/02/2023 12:31:40 04/02/20 23 04/02/2023 CBC/C OMPLE TE BLD COUNT W/DIF F platelets 231 x10'3 /uL 150-40 0 Not Available [facility] (Lab) [address] [place], [address], 04/02/2023 12:31:40 04/02/20 23 04/02/2023 CBC/C OMPLE TE BLD COUNT W/DIF F mean platelet volume 10.0 fL 9.0-12 .4 Not Available [facility] (Lab) [address] [place], [address], 04/02/2023 12:31:40 04/02/20 23 04/02/2023 CBC/C OMPLE TE BLD COUNT W/DIF F neutrophils 61.1 % 39.0-7 2.0 Not Available [facility] (Lab) [address] [place], [address], 04/02/2023 12:31:40 04/02/20 23 04/02/2023 CBC/C OMPLE TE BLD COUNT W/DIF F lymphocytes 29.1 % 16.0-4 7.0 Not Available [facility] (Lab) [address] [place], [address], 04/02/2023 12:31:40 04/02/20 23 04/02/2023 CBC/C OMPLE TE BLD COUNT W/DIF F monocytes 6.8 % 5.0-12 .0 Not Available [facility] (Lab) [address] [place], [address], 04/02/2023 12:31:40 04/02/20 23 04/02/2023 CBC/C OMPLE TE BLD COUNT W/DIF F eosinophils 1.9 % 1.0-7. 0 Not Available [facility] (Lab) [address] [place], [address], 04/02/2023 12:31:40 04/02/20 23 04/02/2023 CBC/C OMPLE TE BLD COUNT W/DIF F basophils 0.7 % 0.0-2. 0 Not Available [facility] (Lab) [address] [place], [address], 04/02/2023 12:31:40 04/02/20 23 04/02/2023 CBC/C OMPLE TE BLD COUNT W/DIF F immature granulocytes 0.4 % 0.00-0 .50 Not Available [facility] (Lab) [address] [place], [address], 04/02/2023 12:31:40 04/02/20 23 04/02/2023 CBC/C OMPLE TE BLD COUNT W/DIF F neutrophils, absolute count 4.60 x10'3 /uL 1.5-8. 0 Not Available [facility] (Lab) [address] [place], [address], 04/02/2023 12:31:40 04/02/20 23 04/02/2023 CBC/C OMPLE TE BLD COUNT W/DIF F lymphocytes, absolute count 2.19 x10'3 /uL 1.07-3 .43 Not Available [facility] (Lab) [address] [place], [address], 04/02/2023 12:31:40 04/02/20 23 04/02/2023 CBC/C OMPLE TE BLD COUNT W/DIF F monocytes, absolute count 0.51 x10'3 /uL 0.29-0 .99 Not Available [facility] (Lab) [address] [place], [address], 04/02/2023 12:31:40 04/02/20 23 04/02/2023 CBC/C OMPLE TE BLD COUNT W/DIF F eosinophils, absolute count 0.14 x10'3 /uL 0.02-0 .53 Not Available [facility] (Lab) [address] [place], [address], 04/02/2023 12:31:40 04/02/20 23 04/02/2023 CBC/C OMPLE TE BLD COUNT W/DIF F basophils, absolute count 0.05 x10'3 /uL 0.01-0 .08 Not Available [facility] (Lab) [address] [place], [address], 04/02/2023 12:31:40 04/02/20 23 04/02/2023 CBC/C OMPLE TE BLD COUNT W/DIF F immature granulocytes ,absolute 0.03 x10'3 /uL 0.00-0 .05 Not Available [facility] (Lab) [address] [place], [address], 04/02/2023 12:31:40 04/02/20 23 04/02/2023 CBC/C OMPLE TE BLD COUNT W/DIF F nucleated red blood cells 0.0 % -0 Not Available [facility] (Lab) [address] [place], [address], 04/02/2023 12:31:40 04/02/20 23 04/02/2023 CBC/C OMPLE TE BLD COUNT W/DIF F NRBC# 0.00 x10'3 /uL Not Available [facility] (Lab) [address] [place], [address], 04/02/2023 12:31:40 04/02/20 23 04/02/2023 HEMOG LOBIN A1C HA1C 4.6 % 4.0-6. 0 Diabe faye Scree sarah Crite beto: <5.7% Consi stent with absen ce of diabe faye 5.7-6 .4% Consi stent with incre ased risk for diabe faye (pred iabet es) >OR=6 .5% Consi stent with diabe faye REFER ENCE: Diabe faye Care 2016, 39(Rosales ppl.1 ):s13 -s22 Not Available [facility] (Lab) [address] [place], [address], 04/02/2023 12:47:35 04/02/20 23 04/02/2023 COMPR EHENS KOKO METAB OLIC PANEL sodium 140 mmol/ L 137-14 5 Not Available [facility] (Lab) [address] [place], [address], 04/02/2023 12:50:05 04/02/20 23 04/02/2023 COMPR EHENS KOKO METAB OLIC PANEL potassium 4.2 mmol/ L 3.5-5. 1 Not Available [facility] (Lab) [address] [place], [address], 04/02/2023 12:50:05 04/02/20 23 04/02/2023 COMPR EHENS [place] METAB OLIC PANEL chloride 105 mmol/ L 98-107 Not Available [facility] (Lab) [address] [place], [address], 04/02/2023 12:50:05 04/02/20 23 04/02/2023 COMPR EHENS [place] METAB OLIC PANEL carbon dioxide 27 mmol/ L 22-30 Not Available [facility] (Lab) [address] [place], [address], 04/02/2023 12:50:05 04/02/20 23 04/02/2023 COMPR EHENS [place] METAB OLIC PANEL anion gap 12.2 mmol/ L 14-22 low Not Available [facility] (Lab) [address] [place], [address], 04/02/2023 12:50:05 04/02/20 23 04/02/2023 COMPR EHENS [place] METAB OLIC PANEL glucose 95 mg/dL 70-99 Not Available [facility] (Lab) [address] [place], [address], 04/02/2023 12:50:05 04/02/20 23 04/02/2023 COMPR EHENS [place] METAB OLIC PANEL BUN 11 mg/dL 8-19 Not Available [facility] (Lab) [address] [place], [address], 04/02/2023 12:50:05 04/02/20 23 04/02/2023 COMPR EHENS [place] METAB OLIC PANEL creatinine 0.99 mg/dL 0.66-1 .25 Not Available [facility] (Lab) [address] [place], [address], 04/02/2023 12:50:05 04/02/20 23 04/02/2023 COMPR EHENS [place] METAB OLIC PANEL GFR >60 Refer ence Range : [place] ge GFR Healt hy Adult : >60 [...] calcu lator is avail able on the [facility] websi te: https ://neto w.kid desi.o rg/pr ofess ional s/kdo qi/gf r_cal culat or Not Available [facility] (Lab) [address] [place], [address], 04/02/2023 12:50:05 04/02/20 23 04/02/2023 COMPR EHENS [place] METAB OLIC PANEL alkaline phosphatase 85 U/L 38-126 Not Available [facility] (Lab) [address] [place], [address], 04/02/2023 12:50:05 04/02/20 23 04/02/2023 COMPR EHENS [place] METAB OLIC PANEL alanine aminotransfe rase 28 U/L 0-35 Not Available [facility] (Lab) [address] [place], [address], 04/02/2023 12:50:05 04/02/20 23 04/02/2023 COMPR EHENS [place] METAB OLIC PANEL aspartate aminotransfe rase 28 U/L 15-37 Not Available [facility] (Lab) [address] [place], [address], 04/02/2023 12:50:05 04/02/20 23 04/02/2023 COMPR EHENS [place] METAB OLIC PANEL bilirubin, total 0.40 mg/dL 0.20-1 .30 Not Available [facility] (Lab) [address] [place], [address], 04/02/2023 12:50:05 04/02/20 23 04/02/2023 COMPR EHENS [place] METAB OLIC PANEL calcium 8.9 mg/dL 8.4-10 .2 Not Available [facility] [facility] (Lab) [address] [place], [address], 04/02/2023 12:50:05 04/02/20 23 04/02/2023 COMPR EHENS KOKO METAB OLIC PANEL total protein 7.0 g/dL 6.3-8. 2 Not Available [facility] (Lab) [address] [place], [address], 04/02/2023 12:50:05 04/02/20 23 04/02/2023 COMPR EHENS KOKO METAB OLIC PANEL albumin 3.9 g/dL 3.4-5. 0 Not Available [facility] (Lab) [address] [place], [address], 04/02/2023 12:50:05 04/02/20 23 04/02/2023 COMPR EHENS KOKO METAB OLIC PANEL globulin 3.1 g/dL 2.6-4. 2 Not Available [facility] (Lab) [address] [place], [address], 04/02/2023 12:50:05 04/02/20 23 04/02/2023 COMPR EHENS KOKO METAB OLIC PANEL A/G ratio 1.3 ratio 1.0-2. 0 Not Available [facility] (Lab) [address] [place], [address], 04/02/2023 12:50:05 04/02/20 23 04/02/2023 LIPID PANEL cholesterol 192 mg/dL 140-19 9 NIH DARSHAN NSUS RECOM MENDA TION FOR MAGY STERO L: ADULT CHILD LOW RISK: <200 <170 BORDE RLINE : <200- 239 ----- HIGH RISK: >240 >200 Not Available [facility] (Lab) [address] [place], [address], 04/02/2023 12:50:08 04/02/20 23 04/02/2023 LIPID PANEL triglyceride s 94 mg/dL 0-150 NIH DARSHAN NSUS REPOR T RECOM MENDA TION FOR TRIGL YCERI LATOSHA: ADULT CHILD LOW RISK: <150 ----- BODER LINE: 150-1 99 ----- HIGH RISK: >200 ----- Not Available [facility] (Lab) [address] [place], [address], 04/02/2023 12:50:08 04/02/20 23 04/02/2023 LIPID PANEL HDL cholesterol 46 mg/dL 40- Not Available [facility] (Lab) [address] [place], [address], 04/02/2023 12:50:08 04/02/20 23 04/02/2023 LIPID PANEL LDL cholesterol, calculated 127 mg/dL [...] WILL NOT BE REPOR DAVID. Not Available [facility] (Lab) [address] [place], [address], 04/02/2023 12:50:08 04/02/20 23 04/02/2023 IRON/ TIBC PANEL total iron binding capacity 315 mcg/d L 265-47 5 Not Available [facility] (Lab) [address] [place], [address], 04/02/2023 12:56:19 04/02/20 23 04/02/2023 IRON/ TIBC PANEL % transferrin saturation 19 % 20-55 low Not Available [facility] (Lab) [address] [place], [address], 04/02/2023 12:56:19 04/02/20 23 04/02/2023 IRON/ TIBC PANEL unsaturated iron bind capacity 256 mcg/d L 126-38 2 Not Available [facility] (Lab) [address] [place], [address], 04/02/2023 12:56:19 04/02/20 23 04/02/2023 IRON/ TIBC PANEL iron 59 mcg/d L 42-175 Not Available [facility] (Lab) [address] [place], [address], 04/02/2023 12:56:19 04/02/20 23 04/02/2023 VITAM IN D 25-HY DROXY [id number] 38.2 NG/mL 30-100 Vitam in D Statu s: Defic ient: <20 ng/mL Insuf ficie nt: 20-29 ng/mL Suffi cient : 30-10 0 ng/mL Not Available [facility] (Lab) [address] [place], [address], 04/02/2023 13:01:41 04/02/2004/02/2023 T4 FREE free T4 0.67 NG/dL 0.78-2 .19 low Not Available [facility] (Lab) [address] [place], [address], 04/02/2023 13:07:19 04/02/2004/02/2023 TSH thyroid-stim ulating hormone 33.200 uIU/m L 0.465- 4.680 high Not Available [facility] (Lab) [address] [place], [address], 04/02/2023 13:22:03 04/02/20 23 04/02/2023 LIZBET TIN ferritin 66 NG/mL 6.24-1 37 Not Available [facility] (Lab) [address] [place], [address], 04/02/2023 13:22:22 04/02/20 23 04/02/2023 VITAM IN B12 (NICOLE GERTRUDE ) vb12 380 pg/mL 239-93 1 Not Available [facility] (Lab) [address] [place], [address], 04/02/2023 13:53:06 04/02/20 23 04/02/2023 FOLAT E, SERUM /PLAS MA folate 9.96 NG/mL 2.76-2 0.0 Not Available [facility] (Lab) [address] [place], [address], 04/02/2023 13:53:10 12/20/19 25 12/19/2024 CBC/C OMPLE TE BLD COUNT W/DIF F white blood cells 8.3 x10'3 /uL 4.2-10 .8 Not Available [facility] (Lab) [address] [place], [address], 12/19/2024 14:58:01 12/20/19 25 12/19/2024 CBC/C OMPLE TE BLD COUNT W/DIF F red blood cells 4.67 x10'6 /uL 3.80-5 .20 Not Available [facility] (Lab) [address] [place], [address], 12/19/2024 14:58:01 12/20/19 25 12/19/2024 CBC/C OMPLE TE BLD COUNT W/DIF F hemoglobin 14.0 g/dL 12.0-1 5.6 Not Available [facility] (Lab) [address] [place], [address], 12/19/2024 14:58:01 12/20/19 25 12/19/2024 CBC/C OMPLE TE BLD COUNT W/DIF F hematocrit 42.0 % 35.7-4 5.7 Not Available [facility] (Lab) [address] [place], [address], 12/19/2024 14:58:01 12/20/19 25 12/19/2024 CBC/C OMPLE TE BLD COUNT W/DIF F mean red cell volume 89.9 fL 82.0-9 9.0 Not Available [facility] (Lab) [address] [place], [address], 12/19/2024 14:58:01 12/20/19 25 12/19/2024 CBC/C OMPLE TE BLD COUNT W/DIF F mean red cell hemoglobin 30.0 pg 27.0-3 3.0 Not Available [facility] (Lab) [address] [place], [address], 12/19/2024 14:58:01 12/20/19 25 12/19/2024 CBC/C OMPLE TE BLD COUNT W/DIF F mean RBC HGB concentratio n 33.3 g/dL 31.0-3 6.0 Not Available [facility] (Lab) [address] [place], [address], 12/19/2024 14:58:01 12/20/19 25 12/19/2024 CBC/C OMPLE TE BLD COUNT W/DIF F red cell distribution width 14.4 % 11.8-1 5.5 Not Available [facility] (Lab) [address] [place], [address], 12/19/2024 14:58:01 12/20/19 25 12/19/2024 CBC/C OMPLE TE BLD COUNT W/DIF F platelets 346 x10'3 /uL 150-40 0 Not Available [facility] (Lab) [address] [place], [address], 12/19/2024 14:58:01 12/20/19 25 12/19/2024 CBC/C OMPLE TE BLD COUNT W/DIF F mean platelet volume 10.7 fL 9.0-12 .4 Not Available [facility] (Lab) [address] [place], [address], 12/19/2024 14:58:01 12/20/19 25 12/19/2024 CBC/C OMPLE TE BLD COUNT W/DIF F neutrophils 64.0 % 39.0-7 2.0 Not Available [facility] (Lab) [address] [place], [address], 12/19/2024 14:58:01 12/20/19 25 12/19/2024 CBC/C OMPLE TE BLD COUNT W/DIF F lymphocytes 24.8 % 16.0-4 7.0 Not Available [facility] (Lab) [address] [place], [address], 12/19/2024 14:58:01 12/20/19 25 12/19/2024 CBC/C OMPLE TE BLD COUNT W/DIF F monocytes 6.0 % 5.0-12 .0 Not Available [facility] (Lab) [address] [place], [address], 12/19/2024 14:58:01 12/20/19 25 12/19/2024 CBC/C OMPLE TE BLD COUNT W/DIF F eosinophils 4.0 % 1.0-7. 0 Not Available [facility] (Lab) [address] [place], [address], 12/19/2024 14:58:01 12/20/19 25 12/19/2024 CBC/C OMPLE TE BLD COUNT W/DIF F basophils 1.0 % 0.0-2. 0 Not Available [facility] (Lab) [address] [place], [address], 12/19/2024 14:58:01 12/20/19 25 12/19/2024 CBC/C OMPLE TE BLD COUNT W/DIF F immature granulocytes 0.2 % 0.00-0 .50 Not Available [facility] (Lab) [address] [place], [address], 12/19/2024 14:58:01 12/20/19 25 12/19/2024 CBC/C OMPLE TE BLD COUNT W/DIF F neutrophils, absolute count 5.30 x10'3 /uL 1.5-8. 0 Not Available [facility] (Lab) [address] [place], [address], 12/19/2024 14:58:01 12/20/19 25 12/19/2024 CBC/C OMPLE TE BLD COUNT W/DIF F lymphocytes, absolute count 2.05 x10'3 /uL 1.07-3 .43 Not Available [facility] (Lab) [address] [place], [address], 12/19/2024 14:58:01 12/20/19 25 12/19/2024 CBC/C OMPLE TE BLD COUNT W/DIF F monocytes, absolute count 0.50 x10'3 /uL 0.29-0 .99 Not Available [facility] (Lab) [address] [place], [address], 12/19/2024 14:58:01 12/20/19 25 12/19/2024 CBC/C OMPLE TE BLD COUNT W/DIF F eosinophils, absolute count 0.33 x10'3 /uL 0.02-0 .53 Not Available [facility] (Lab) [address] [place], [address], 12/19/2024 14:58:01 12/20/19 25 12/19/2024 CBC/C OMPLE TE BLD COUNT W/DIF F basophils, absolute count 0.08 x10'3 /uL 0.01-0 .08 Not Available [facility] (Lab) [address] [place], [address], 12/19/2024 14:58:01 12/20/19 25 12/19/2024 CBC/C OMPLE TE BLD COUNT W/DIF F immature granulocytes ,absolute 0.02 x10'3 /uL 0.00-0 .05 Not Available [facility] (Lab) [address] [place], [address], 12/19/2024 14:58:01 12/20/19 25 12/19/2024 CBC/C OMPLE TE BLD COUNT W/DIF F nucleated red blood cells 0.0 % -0 Not Available [facility] (Lab) [address] [place], [address], 12/19/2024 14:58:01 12/20/19 25 12/19/2024 CBC/C OMPLE TE BLD COUNT W/DIF F NRBC# 0.00 x10'3 /uL Not Available [facility] (Lab) [address] [place], [address], 12/19/2024 14:58:01 12/20/19 25 12/19/2024 COMPR EHENS KOKO METAB OLIC PANEL sodium 140 mmol/ L 137-14 5 Not Available [facility] (Lab) [address] [place], [address], 12/19/2024 14:59:10 12/20/19 25 12/19/2024 COMPR EHENS KOKO METAB OLIC PANEL potassium 4.4 mmol/ L 3.5-5. 1 Not Available [facility] (Lab) [address] [place], [address], 12/19/2024 14:59:10 12/20/19 25 12/19/2024 COMPR EHENS KOKO METAB OLIC PANEL chloride 108 mmol/ L 98-107 high Not Available [facility] (Lab) [address] [place], [address], 12/19/2024 14:59:10 12/20/19 25 12/19/2024 COMPR EHENS KOKO METAB OLIC PANEL carbon dioxide 27 mmol/ L 22-30 Not Available [facility] (Lab) [address] [place], [address], 12/19/2024 14:59:10 12/20/19 25 12/19/2024 COMPR EHENS KOKO METAB OLIC PANEL anion gap 9.4 mmol/ L 14-22 low Not Available [facility] (Lab) [address] [place], [address], 12/19/2024 14:59:10 12/20/19 25 12/19/2024 COMPR EHENS KOKO METAB OLIC PANEL glucose 101 mg/dL 70-99 high Not Available [facility] (Lab) [address] [place], [address], 12/19/2024 14:59:10 12/20/19 25 12/19/2024 COMPR EHENS KOKO METAB OLIC PANEL BUN 9 mg/dL 8-19 Not Available [facility] (Lab) [address] [place], [address], 12/19/2024 14:59:10 12/20/19 25 12/19/2024 COMPR EHENS KOKO METAB OLIC PANEL creatinine 1.06 mg/dL 0.66-1 .25 Not Available [facility] (Lab) [address] [place], [address], 12/19/2024 14:59:10 12/20/19 25 12/19/2024 COMPR EHENS KOKO METAB OLIC PANEL GFR >60 Refer ence Range : Oklee ge GFR Healt hy Adult : >60 [...] calcu lator is avail able on the [facility] websi te: https ://ww w.kid desi.o rg/pr ofess ional s/kdo qi/gf r_cal culat or Not Available [facility] (Lab) [address] [place], [address], 12/19/2024 14:59:10 12/20/19 25 12/19/2024 COMPR EHENS KOKO METAB OLIC PANEL alkaline phosphatase 412 U/L 38-126 high Not Available [facility] (Lab) [address] [place], [address], 12/19/2024 14:59:10 12/20/19 25 12/19/2024 COMPR EHENS KOKO METAB OLIC PANEL alanine aminotransfe rase >750 U/L 0-35 high Not Available [facility] (Lab) [address] [place], [address], 12/19/2024 14:59:10 12/20/19 25 12/19/2024 COMPR EHENS KOKO METAB OLIC PANEL aspartate aminotransfe rase 626 U/L 15-37 high Not Available [facility] (Lab) [address] [place], [address], 12/19/2024 14:59:10 12/20/19 25 12/19/2024 COMPR EHENS KOKO METAB OLIC PANEL bilirubin, total 2.30 mg/dL 0.20-1 .30 high Not Available [facility] (Lab) [address] [place], [address], 12/19/2024 14:59:10 12/20/19 25 12/19/2024 COMPR EHENS KOKO METAB OLIC PANEL calcium 9.7 mg/dL 8.4-10 .2 Not Available [facility] (Lab) [address] [place], [address], 12/19/2024 14:59:10 12/20/19 25 12/19/2024 COMPR EHENS KOKO METAB OLIC PANEL total protein 7.8 g/dL 6.3-8. 2 Not Available [facility] (Lab) [address] [place], [address], 12/19/2024 14:59:10 12/20/19 25 12/19/2024 COMPR EHENS KOKO METAB OLIC PANEL albumin 4.7 g/dL 3.4-5. 0 Not Available [facility] (Lab) [address] [place], [address], 12/19/2024 14:59:10 12/20/19 25 12/19/2024 COMPR EHENS KOKO METAB OLIC PANEL globulin 3.1 g/dL 2.6-4. 2 Not Available [facility] (Lab) [address] [place], [address], 12/19/2024 14:59:10 12/20/19 25 12/19/2024 COMPR EHENS KOKO METAB OLIC PANEL A/G ratio 1.5 ratio 1.0-2. 0 Not Available [facility] (Lab) [address] [place], [address], 12/19/2024 14:59:10 12/20/19 25 12/19/2024 LIPAS E SERUM lipase 96 U/L 23-300 Not Available [facility] (Lab) [address] [place], [address], 12/19/2024 14:59:13 12/22/19 25 12/21/2024 CBC/C OMPLE TE BLD COUNT W/DIF F white blood cells 7.5 x10'3 /uL 4.2-10 .8 Not Available [facility] (Lab) [address] [place], [address], 12/21/2024 11:11:52 12/22/19 25 12/21/2024 CBC/C OMPLE TE BLD COUNT W/DIF F red blood cells 4.62 x10'6 /uL 3.80-5 .20 Not Available [facility] (Lab) [address] [place], [address], 12/21/2024 11:11:52 12/22/19 25 12/21/2024 CBC/C OMPLE TE BLD COUNT W/DIF F hemoglobin 13.8 g/dL 12.0-1 5.6 Not Available [facility] (Lab) [address] [place], [address], 12/21/2024 11:11:52 12/22/19 25 12/21/2024 CBC/C OMPLE TE BLD COUNT W/DIF F hematocrit 42.5 % 35.7-4 5.7 Not Available [facility] (Lab) [address] [place], [address], 12/21/2024 11:11:52 12/22/19 25 12/21/2024 CBC/C OMPLE TE BLD COUNT W/DIF F mean red cell volume 92.0 fL 82.0-9 9.0 Not Available [facility] (Lab) [address] [place], [address], 12/21/2024 11:11:52 12/22/19 25 12/21/2024 CBC/C OMPLE TE BLD COUNT W/DIF F mean red cell hemoglobin 29.9 pg 27.0-3 3.0 Not Available [facility] (Lab) [address] [place], [address], 12/21/2024 11:11:52 12/22/19 25 12/21/2024 CBC/C OMPLE TE BLD COUNT W/DIF F mean RBC HGB concentratio n 32.5 g/dL 31.0-3 6.0 Not Available [facility] (Lab) [address] [place], [address], 12/21/2024 11:11:52 12/22/19 25 12/21/2024 CBC/C OMPLE TE BLD COUNT W/DIF F red cell distribution width 14.6 % 11.8-1 5.5 Not Available [facility] (Lab) [address] [place], [address], 12/21/2024 11:11:52 12/22/19 25 12/21/2024 CBC/C OMPLE TE BLD COUNT W/DIF F platelets 322 x10'3 /uL 150-40 0 Not Available [facility] (Lab) [address] [place], [address], 12/21/2024 11:11:52 12/22/19 25 12/21/2024 CBC/C OMPLE TE BLD COUNT W/DIF F mean platelet volume 10.6 fL 9.0-12 .4 Not Available [facility] (Lab) [address] [place], [address], 12/21/2024 11:11:52 12/22/19 25 12/21/2024 CBC/C OMPLE TE BLD COUNT W/DIF F neutrophils 54.2 % 39.0-7 2.0 Not Available [facility] (Lab) [address] [place], [address], 12/21/2024 11:11:52 12/22/19 25 12/21/2024 CBC/C OMPLE TE BLD COUNT W/DIF F lymphocytes 32.9 % 16.0-4 7.0 Not Available [facility] (Lab) [address] [place], [address], 12/21/2024 11:11:52 12/22/19 25 12/21/2024 CBC/C OMPLE TE BLD COUNT W/DIF F monocytes 6.4 % 5.0-12 .0 Not Available [facility] (Lab) [address] [place], [address], 12/21/2024 11:11:52 12/22/19 25 12/21/2024 CBC/C OMPLE TE BLD COUNT W/DIF F eosinophils 5.0 % 1.0-7. 0 Not Available [facility] (Lab) [address] [place], [address], 12/21/2024 11:11:52 12/22/19 25 12/21/2024 CBC/C OMPLE TE BLD COUNT W/DIF F basophils 1.2 % 0.0-2. 0 Not Available [facility] (Lab) [address] [place], [address], 12/21/2024 11:11:52 12/22/19 25 12/21/2024 CBC/C OMPLE TE BLD COUNT W/DIF F immature granulocytes 0.3 % 0.00-0 .50 Not Available [facility] (Lab) [address] [place], [address], 12/21/2024 11:11:52 12/22/19 25 12/21/2024 CBC/C OMPLE TE BLD COUNT W/DIF F neutrophils, absolute count 4.08 x10'3 /uL 1.5-8. 0 Not Available [facility] (Lab) [address] [place], [address], 12/21/2024 11:11:52 12/22/19 25 12/21/2024 CBC/C OMPLE TE BLD COUNT W/DIF F lymphocytes, absolute count 2.48 x10'3 /uL 1.07-3 .43 Not Available [facility] (Lab) [address] [place], [address], 12/21/2024 11:11:52 12/22/19 25 12/21/2024 CBC/C OMPLE TE BLD COUNT W/DIF F monocytes, absolute count 0.48 x10'3 /uL 0.29-0 .99 Not Available [facility] (Lab) [address] [place], [address], 12/21/2024 11:11:52 12/22/19 25 12/21/2024 CBC/C OMPLE TE BLD COUNT W/DIF F eosinophils, absolute count 0.38 x10'3 /uL 0.02-0 .53 Not Available [facility] (Lab) [address] [place], [address], 12/21/2024 11:11:52 12/22/19 25 12/21/2024 CBC/C OMPLE TE BLD COUNT W/DIF F basophils, absolute count 0.09 x10'3 /uL 0.01-0 .08 high Not Available [facility] (Lab) [address] [place], [address], 12/21/2024 11:11:52 12/22/19 25 12/21/2024 CBC/C OMPLE TE BLD COUNT W/DIF F immature granulocytes ,absolute 0.02 x10'3 /uL 0.00-0 .05 Not Available [facility] (Lab) [address] [place], [address], 12/21/2024 11:11:52 12/22/19 25 12/21/2024 CBC/C OMPLE TE BLD COUNT W/DIF F nucleated red blood cells 0.0 % -0 Not Available [facility] (Lab) [address] [place], [address], 12/21/2024 11:11:52 12/22/19 25 12/21/2024 CBC/C OMPLE TE BLD COUNT W/DIF F NRBC# 0.00 x10'3 /uL Not Available [facility] (Lab) [address] [place], [address], 12/21/2024 11:11:52 12/22/19 25 12/21/2024 COMPR EHENS KOKO METAB OLIC PANEL sodium 139 mmol/ L 137-14 5 Not Available [facility] (Lab) [address] [place], [address], 12/21/2024 11:23:07 12/22/19 25 12/21/2024 COMPR EHENS KOKO METAB OLIC PANEL potassium 4.4 mmol/ L 3.5-5. 1 Not Available [facility] (Lab) [address] [place], [address], 12/21/2024 11:23:07 12/22/19 25 12/21/2024 COMPR EHENS KOKO METAB OLIC PANEL chloride 107 mmol/ L 98-107 Not Available [facility] (Lab) [address] [place], [address], 12/21/2024 11:23:07 12/22/19 25 12/21/2024 COMPR EHENS KOKO METAB OLIC PANEL carbon dioxide 25 mmol/ L 22-30 Not Available [facility] (Lab) [address] [place], [address], 12/21/2024 11:23:07 12/22/19 25 12/21/2024 COMPR EHENS KOKO METAB OLIC PANEL anion gap 11.4 mmol/ L 14-22 low Not Available [facility] (Lab) [address] [place], [address], 12/21/2024 11:23:07 12/22/19 25 12/21/2024 COMPR EHENS KOKO METAB OLIC PANEL glucose 137 mg/dL 70-99 high Not Available [facility] (Lab) [address] [place], [address], 12/21/2024 11:23:07 12/22/19 25 12/21/2024 COMPR EHENS KOKO METAB OLIC PANEL BUN 13 mg/dL 8-19 Not Available [facility] (Lab) [address] [place], [address], 12/21/2024 11:23:07 12/22/19 25 12/21/2024 COMPR EHENS KOKO METAB OLIC PANEL creatinine 1.10 mg/dL 0.66-1 .25 Not Available [facility] (Lab) [address] [facility] [place], [address], 12/21/2024 11:23:07 12/22/19 25 12/21/2024 COMPR EHENS KOKO METAB OLIC PANEL GFR 59 Refer ence Range : [place]lee ge GFR Healt hy Adult : >60 [...] or ethni c subgr oups, such as [facility] nics. Outsi de the valid ated dale [...] calcu lator is avail able on the [facility] websi te: https ://neto wafrica weeks.o rg/pr ofess ional s/kdo qi/gf r_cal culat or Not Available [facility] (Lab) [address] [place], [address], 12/21/2024 11:23:07 12/22/19 25 12/21/2024 COMPR EHENS KOKO METAB OLIC PANEL alkaline phosphatase 445 U/L 38-126 high Not Available [facility] (Lab) [address] [place], [address], 12/21/2024 11:23:07 12/22/19 25 12/21/2024 COMPR EHENS KOKO METAB OLIC PANEL alanine aminotransfe rase 594 U/L 0-35 high Not Available [facility] (Lab) [address] [place], [address], 12/21/2024 11:23:07 12/22/19 25 12/21/2024 COMPR EHENS KOKO METAB OLIC PANEL aspartate aminotransfe rase 156 U/L 15-37 high Not Available [facility] (Lab) [address] [place], [address], 12/21/2024 11:23:07 12/22/19 25 12/21/2024 COMPR EHENS KOKO METAB OLIC PANEL bilirubin, total 1.00 mg/dL 0.20-1 .30 Not Available [facility] (Lab) [address] [place], [address], 12/21/2024 11:23:07 12/22/19 25 12/21/2024 COMPR EHENS KOKO METAB OLIC PANEL calcium 9.7 mg/dL 8.4-10 .2 Not Available [facility] (Lab) [address] [place], [address], 12/21/2024 11:23:07 12/22/19 25 12/21/2024 COMPR EHENS KOKO METAB OLIC PANEL total protein 7.7 g/dL 6.3-8. 2 Not Available [facility] (Lab) [address] [place], [address], 12/21/2024 11:23:07 12/22/19 25 12/21/2024 COMPR EHENS OKKO METAB OLIC PANEL albumin 4.6 g/dL 3.4-5. 0 Not Available [facility] (Lab) [address] [place], [address], 12/21/2024 11:23:07 12/22/19 25 12/21/2024 COMPR EHENS KOKO METAB OLIC PANEL globulin 3.1 g/dL 2.6-4. 2 Not Available [facility] (Lab) [address] [facility], [address], 12/21/2024 11:23:07 12/22/19 25 12/21/2024 COMPR EHENS KOKO METAB OLIC PANEL A/G ratio 1.5 ratio 1.0-2. 0 Not Available [facility] (Lab) [address] [place], [address], 12/21/2024 11:23:07 12/22/19 25 12/21/2024 LIPAS E SERUM lipase 348 U/L 23-300 high Not Available [facility] (Lab) [address] [place], [address], 12/21/2024 11:23:15 12/26/19 25 12/25/2024 CBC/C OMPLE TE BLD COUNT W/DIF F white blood cells 7.2 x10'3 /uL 4.2-10 .8 Not Available [facility] (Lab) [address] [place], [address], 12/25/2024 11:14:03 12/26/19 25 12/25/2024 CBC/C OMPLE TE BLD COUNT W/DIF F red blood cells 4.61 x10'6 /uL 3.80-5 .20 Not Available [facility] (Lab) [address] [place], [address], 12/25/2024 11:14:03 12/26/19 25 12/25/2024 CBC/C OMPLE TE BLD COUNT W/DIF F hemoglobin 13.8 g/dL 12.0-1 5.6 Not Available [facility] (Lab) [address] [place], [address], 12/25/2024 11:14:03 12/26/19 25 12/25/2024 CBC/C OMPLE TE BLD COUNT W/DIF F hematocrit 41.9 % 35.7-4 5.7 Not Available [facility] (Lab) [address] [place], [address], 12/25/2024 11:14:03 12/26/19 25 12/25/2024 CBC/C OMPLE TE BLD COUNT W/DIF F mean red cell volume 90.9 fL 82.0-9 9.0 Not Available [facility] (Lab) [address] [place], [address], 12/25/2024 11:14:03 12/26/19 25 12/25/2024 CBC/C OMPLE TE BLD COUNT W/DIF F mean red cell hemoglobin 29.9 pg 27.0-3 3.0 Not Available [facility] (Lab) [address] [place], [address], 12/25/2024 11:14:03 12/26/19 25 12/25/2024 CBC/C OMPLE TE BLD COUNT W/DIF F mean RBC HGB concentratio n 32.9 g/dL 31.0-3 6.0 Not Available [facility] (Lab) [address] [place], [address], 12/25/2024 11:14:03 12/26/19 25 12/25/2024 CBC/C OMPLE TE BLD COUNT W/DIF F red cell distribution width 14.0 % 11.8-1 5.5 Not Available [facility] (Lab) [address] [place], [address], 12/25/2024 11:14:03 12/26/19 25 12/25/2024 CBC/C OMPLE TE BLD COUNT W/DIF F platelets 306 x10'3 /uL 150-40 0 Not Available [facility] (Lab) [address] [place], [address], 12/25/2024 11:14:03 12/26/19 25 12/25/2024 CBC/C OMPLE TE BLD COUNT W/DIF F mean platelet volume 10.5 fL 9.0-12 .4 Not Available [facility] (Lab) [address] [place], [address], 12/25/2024 11:14:03 12/26/19 25 12/25/2024 CBC/C OMPLE TE BLD COUNT W/DIF F neutrophils 60.0 % 39.0-7 2.0 Not Available [facility] (Lab) [address] [place], [address], 12/25/2024 11:14:03 12/26/19 25 12/25/2024 CBC/C OMPLE TE BLD COUNT W/DIF F lymphocytes 28.1 % 16.0-4 7.0 Not Available [facility] (Lab) [address] [place], [address], 12/25/2024 11:14:03 12/26/19 25 12/25/2024 CBC/C OMPLE TE BLD COUNT W/DIF F monocytes 6.7 % 5.0-12 .0 Not Available [facility] (Lab) [address] [place], [address], 12/25/2024 11:14:03 12/26/19 25 12/25/2024 CBC/C OMPLE TE BLD COUNT W/DIF F eosinophils 3.8 % 1.0-7. 0 Not Available [facility] (Lab) [address] [place], [address], 12/25/2024 11:14:03 12/26/19 25 12/25/2024 CBC/C OMPLE TE BLD COUNT W/DIF F basophils 1.1 % 0.0-2. 0 Not Available [facility] (Lab) [address] [place], [address], 12/25/2024 11:14:03 12/26/19 25 12/25/2024 CBC/C OMPLE TE BLD COUNT W/DIF F immature granulocytes 0.3 % 0.00-0 .50 Not Available [facility] (Lab) [address] [place], [address], 12/25/2024 11:14:03 12/26/19 25 12/25/2024 CBC/C OMPLE TE BLD COUNT W/DIF F neutrophils, absolute count 4.31 x10'3 /uL 1.5-8. 0 Not Available [facility] (Lab) [address] [place], [address], 12/25/2024 11:14:03 12/26/19 25 12/25/2024 CBC/C OMPLE TE BLD COUNT W/DIF F lymphocytes, absolute count 2.02 x10'3 /uL 1.07-3 .43 Not Available [facility] (Lab) [address] [place], [address], 12/25/2024 11:14:03 12/26/19 25 12/25/2024 CBC/C OMPLE TE BLD COUNT W/DIF F monocytes, absolute count 0.48 x10'3 /uL 0.29-0 .99 Not Available [facility] (Lab) [address] [place], [address], 12/25/2024 11:14:03 12/26/19 25 12/25/2024 CBC/C OMPLE TE BLD COUNT W/DIF F eosinophils, absolute count 0.27 x10'3 /uL 0.02-0 .53 Not Available [facility] (Lab) [address] [place], [address], 12/25/2024 11:14:03 12/26/19 25 12/25/2024 CBC/C OMPLE TE BLD COUNT W/DIF F basophils, absolute count 0.08 x10'3 /uL 0.01-0 .08 Not Available [facility] (Lab) [address] [place], [address], 12/25/2024 11:14:03 12/26/19 25 12/25/2024 CBC/C OMPLE TE BLD COUNT W/DIF F immature granulocytes ,absolute 0.02 x10'3 /uL 0.00-0 .05 Not Available [facility] (Lab) [address] [place], [address], 12/25/2024 11:14:03 12/26/19 25 12/25/2024 CBC/C OMPLE TE BLD COUNT W/DIF F nucleated red blood cells 0.0 % -0 Not Available [facility] (Lab) [address] [place], [address], 12/25/2024 11:14:03 12/26/19 25 12/25/2024 CBC/C OMPLE TE BLD COUNT W/DIF F NRBC# 0.00 x10'3 /uL Not Available [facility] (Lab) [address] [place], [address], 12/25/2024 11:14:03 12/26/19 25 12/25/2024 COMPR EHENS KOKO METAB OLIC PANEL sodium 139 mmol/ L 137-14 5 Not Available [facility] (Lab) [address] [place], [address], 12/25/2024 11:17:33 12/26/19 25 12/25/2024 COMPR EHENS KOKO METAB OLIC PANEL potassium 4.3 mmol/ L 3.5-5. 1 Not Available [facility] (Lab) [address] [place], [address], 12/25/2024 11:17:33 12/26/19 25 12/25/2024 COMPR EHENS KOKO METAB OLIC PANEL chloride 110 mmol/ L 98-107 high Not Available [facility] (Lab) [address] [place], [address], 12/25/2024 11:17:33 12/26/19 25 12/25/2024 COMPR EHENS KOKO METAB OLIC PANEL carbon dioxide 25 mmol/ L 22-30 Not Available [facility] (Lab) [address] [place], [address], 12/25/2024 11:17:33 12/26/19 25 12/25/2024 COMPR EHENS KOKO METAB OLIC PANEL anion gap 8.3 mmol/ L 14-22 low Not Available [facility] (Lab) [address] [place], [address], 12/25/2024 11:17:33 12/26/19 25 12/25/2024 COMPR EHENS KOKO METAB OLIC PANEL glucose 114 mg/dL 70-99 high Not Available [facility] (Lab) [address] [place], [address], 12/25/2024 11:17:33 12/26/19 25 12/25/2024 COMPR EHENS KOKO METAB OLIC PANEL BUN 12 mg/dL 8-19 Not Available [facility] (Lab) [address] [place], [address], 12/25/2024 11:17:33 12/26/19 25 12/25/2024 COMPR EHENS KOKO METAB OLIC PANEL creatinine 1.01 mg/dL 0.66-1 .25 Not Available [facility] (Lab) [address] [place], [address], 12/25/2024 11:17:33 12/26/19 25 12/25/2024 COMPR EHENS KOKO METAB OLIC PANEL GFR >60 Refer ence Range : [place] ge GFR Healt hy Adult : >60 [...] is less accur ate, requi ring clini gary judgm ent on a case- by-ca se [...] calcu lator is avail able on the [facility] websi te: https ://neto w.kid desi.o mei/pr snehaless ional s/kdo qi/gf r_cal culat or Not Available [facility] (Lab) [address] [place], [address], 12/25/2024 11:17:33 12/26/19 25 12/25/2024 COMPR EHENS KOKO METAB OLIC PANEL alkaline phosphatase 259 U/L 38-126 high Not Available [facility] (Lab) [address] [place], [address], 12/25/2024 11:17:33 12/26/19 25 12/25/2024 COMPR EHENS KOKO METAB OLIC PANEL alanine aminotransfe rase 185 U/L 0-35 high Not Available [facility] (Lab) [address] [place], [address], 12/25/2024 11:17:33 12/26/19 25 12/25/2024 COMPR EHENS KOKO METAB OLIC PANEL aspartate aminotransfe rase 40 U/L 15-37 high Not Available [facility] (Lab) [address] [place], [address], 12/25/2024 11:17:33 12/26/19 25 12/25/2024 COMPR EHENS KOKO METAB OLIC PANEL bilirubin, total 0.70 mg/dL 0.20-1 .30 Not Available [facility] (Lab) [address] [place], [address], 12/25/2024 11:17:33 12/26/19 25 12/25/2024 COMPR EHENS KOKO METAB OLIC PANEL calcium 9.1 mg/dL 8.4-10 .2 Not Available [facility] (Lab) [address] [place], [address], 12/25/2024 11:17:33 12/26/19 25 12/25/2024 COMPR EHENS KOKO METAB OLIC PANEL total protein 7.6 g/dL 6.3-8. 2 Not Available [facility] (Lab) [address] [place], [address], 12/25/2024 11:17:33 12/26/19 25 12/25/2024 COMPR EHENS KOKO METAB OLIC PANEL albumin 4.6 g/dL 3.4-5. 0 Not Available [facility] (Lab) [address] [place], [address], 12/25/2024 11:17:33 12/26/19 25 12/25/2024 COMPR EHENS KOKO METAB OLIC PANEL globulin 3.0 g/dL 2.6-4. 2 Not Available [facility] (Lab) [address] [place], [address], 12/25/2024 11:17:33 12/26/19 25 12/25/2024 COMPR EHENS KOKO METAB OLIC PANEL A/G ratio 1.5 ratio 1.0-2. 0 Not Available [facility] (Lab) [address] [place], [address], 12/25/2024 11:17:33 12/26/19 25 12/25/2024 LIPAS E SERUM lipase 325 U/L 23-300 high Not Available [facility] (Lab) [address] [place], [address], 12/25/2024 11:17:36 10/26/19 24 10/26/2023 US, hyste alma delia fernandogo gram No observ ation record ed. [email or web address] [address], [address], 10/27/2023 11:37:12 04/09/20 24 04/09/2024 US, obste tric, 1st trime ster, singl e gesta tion No observ ation record ed. [email or web address] [address], [place], [address], 04/09/2024 15:00:07 12/19/19 25 12/16/2024 CT, abdom en + pelvi s, w/ contr ast No observ ation record ed. BARCODE Not Available 2024 11:14:36 12/20/19 25 12/19/2024 US, abdom en, limit ed [facility] [address] [place] [address] Patien t Name: CYRIL BECK RA Access ion #: [id number] Sex: F : 1995 7 Dictat ed By: Elijah Mancini Attend ing Physic naomie: RUTH BROWNING [facility] Physic naomie: RUTH BROWNING Exam Date: 2024 11:26 AM Exam Name: US ABDOME N SINGLE ORGAN Admitt ing Diagno sis(es ): US ABDOME N SINGLE ORGAN HISTOR Y: abd pain COMPAR DARIANA: US ABDOME N SINGLE ORGAN on DOS: 01/03/21 TECHNI QUE: Transv erse and longit udinal graysc lisa and color sonogr aphic images were obtain ed of the abdome n. FINDIN GS: Liver: - Size: 20 cm - Echoge nicity : Hetero genous - Surfac e Contou r: Smooth - Liver Lesion (s): None - Portal Vein: Patent and forwar d flowin g. - Bile Ducts: Normal . The common bile duct measur es 6.3 mm. Gallbl adder: Sludge vs gallst one is seen. The sonogr aphic Fernandez sign is negati ve. Pancre as: Portio ns not obscur ed by bowel gas are normal . Kidney s: Page 1 [facility] [address] [place] [address] [phone] Patien t Name: CYRIL BECK Access ion #: [id number] Sex: F : 1995 7 Dictat ed By: Elijah Mancini Attend ing Physic naomie: JEANMARIE DE LA CRUZ [facility] Physic naomie: RUTH BROWNING Exam Date: 2024 11:26 AM Exam Name: US ABDOME N SINGLE ORGAN Admitt ing Diagno sis(es ): - Right kidney size: 11.3 cm. There is no hydron ephros is, renal calcul i, or mass lesion . Aorta and Inferi or Vena Cava: The visual ized portio ns of the abdomi nal aorta and intrah epatic vena cava are normal . Other: None IMPRES SURESH: Hepato megaly . Sludge vs gallst one in the gallbl adder. Electr onical ly Signed by: Elijah Mancini at 2024 12:07: 21 PM Page [address] (Imaging) [address] [place], [address], 12/21/2024 09:35:31 12/21/19 25 12/20/2024 MRI, abdom en, w/o contr ast [facility] [address] [facility] [place] [address] [phone] Patien t Name: CYRIL BECK Access ion #: [id number] Sex: F : 1995 9 Dictat ed By: Dalton Wilburn Attend ing Physic naomie: RUTH BROWNING Orderi ng Physic naomie: RUTH BROWNING O Exam Date: 2024 11:42 AM Exam Name: MRI ABDOME N WO Admitt ing Diagno sis(es ): MRI Abdome n, MRCP withou t IV Contra st Exam Date: 2024 11:42 AM Compar dariana: None Histor y: abdomi nal pain Techni que: Multis equenc e multip lanar [facility] MRCP includ ing 3D SPACE, Radial 3D slabs and SPACE 3D MIP images Findin gs: Liver: The liver is normal in size withou t focal lesion s. Normal liver contou r. Spleen : Unrema rkable . Pancre as: The pancre as is normal in appear ance withou t focal lesion s. Gallbl adder and ducts: Gallbl adder is normal in appear ance. The cystic duct, right and left hepati c ducts, common hepati c duct, and common bile ducts are unrema rkable . The pancre atic duct is within normal limits . Adrena l glands : Unrema rkable . Kidney s: Normal enhanc ement withou t suspic ious lesion s or hydron ephros is. Visual ized bowel: Grossl y unrema rkable . Page 1 [facility] [address] [facility] [place] [address] [phone] Patien t Name: CYRIL BECK RA Access ion #: [id number] Sex: F : 1995 9 Dictat ed By: Dalton Wilburn Attend ing Physic naomie: JEANMARIE DE LA CRUZ Orderi ng Physic naomie: RUTH BROWNING Exam Date: 2024 11:42 AM Exam Name: MRI ABDOME N WO Admitt ing Diagno sis(es ): Vascul ature: Unrema rkable . Lympha denopa thy: No eviden ce for lympha denopa thy. Ascite s: Absent . Muscul oskele bell: Bone marrow signal is normal . IMPRES SURESH: 1. Unrema rkable MRI of the abdome n. No biliar y obstru ction. HS:Y. Electr onical ly Signed by: Dalton Wilburn at 2024 22:42: 48 PM Page 2 [email or web address] [facility] (Imaging) [address] [place], [address], 12/21/2024 09:36:25 Result Notes Documentation Provider Name and Address Organization Details Recorded Time Mri, Abdomen, W/o Contrast : [facility] [address] [place] [address] Patient Name: DRAKE BECK Sex: F : 1995 Dictated By: Dalton Wilburn Attending Physician: ZHENG CARROLL Ordering Physician: ZHENG CARROLL Exam Date: 12/20/2024 11:42 AM Exam Name: MRI ABDOMEN WO Admitting Diagnosis(es): MRI Abdomen, MRCP without IV Contrast Exam Date: 12/20/2024 11:42 AM Comparison: None History: abdominal pain Technique: Multisequence multiplanar MRI images were obtained of the abomen. MRCP including 3D SPACE, Radial 3D slabs and SPACE 3D MIP images Findings: Liver: The liver is normal in size without focal lesions. Normal liver contour. Spleen: Unremarkable. Pancreas: The pancreas is normal in appearance without focal lesions. Gallbladder and ducts: Gallbladder is normal in appearance. The cystic duct, right and left hepatic ducts, common hepatic duct, and common bile ducts are unremarkable. The pancreatic duct is within normal limits. Adrenal glands: Unremarkable. Kidneys: Normal enhancement without suspicious lesions or hydronephrosis. Visualized bowel: Grossly unremarkable. Page 1 [facility] [address] [place] [address] Patient Name: DRAKE BECK Sex: F : 1995 Dictated By: Dalton Wilburn Attending Physician: AKILAH CALZADA Ordering Physician: ZHENG CARROLL Exam Date: 12/20/2024 11:42 AM Exam Name: MRI ABDOMEN WO Admitting Diagnosis(es): Vasculature: Unremarkable. Lymphadenopathy: No evidence for lymphadenopathy. Ascites: Absent. Musculoskeletal: Bone marrow signal is normal. IMPRESSION: 1. Unremarkable MRI of the abdomen. No biliary obstruction. HS:Y. Page 2 ANTONIO Sosa, [employer] 12/21/2024 09:36:25 Problems Name Problem SNOMED Code Status Onset Date Resolution Date Notes Provider Name and Address Organization Details Recorded Time Cobalamin deficiency 620403543 Active 2021 Yahaira Key APRN [address] [employer], [address], [address] , [employer] 4 07:58:13 Vitamin D deficiency 40726151 Active 2021 Yahaira Key APRN [address] [facility] [place], [address] , [email or web address] 4 07:58:36 Prediabetes 968441766 Active 2022 DANIEL Rogers [address] [employer], [address], [place], [address] , [email or web address] 4 07:58:30 Sleep apnea 45143870 Active 2022 Yahaira Key APRN [address] [employer], [address], [place], [address] , [employer] 4 07:58:32 Hypothyroidis m 64115354 Active 2022 Yahaira Key APRN [address], [address], [place], [address] , [place] [facility] 4 07:58:16 Insulin resistance 161079951 Active 2022 Yahaira Key APRN [address], [address], [place], [address] , [place] [facility] 4 07:58:19 Iron deficiency 00067686 Active 2022 Yahaira Key APRN [address], [address], [place], [address] , [place] [facility] 4 07:58:21 Mixed anxiety and depressive disorder 160568604 Active 2022 Yahaira Key APRN [address], [address], [place], [address] , [place] [facility] 4 07:58:25 Obesity 757539847 Active 2022 Yahaira Key APRN [address], [address], [place], [address] , [place] [facility] 4 07:58:27 Unable to concentrate 74792107 Active 2022 Not Available [facility] 3 00:20:58 Sprain of deltoid ligament of ankle 24044792 Active Yahaira Key APRN [address], [address], [place], [address] , [place] [facility] 4 07:55:32 Right upper quadrant pain 158371697 Active 2024 Zheng pulido MD [address], [address], [place], [address] , [place] [facility] 5 11:51:43 Right upper quadrant pain 793693515 Active 2024 Zheng pulido MD [address], [address], [place], [address] , [place] [facility] 5 11:51:57 Cholelithiasi s without obstruction 07984999 Active 2024 Zheng pulido MD [address] [address], [place], [address] , [facility] 5 14:54:07 Problem Notes None recorded. Procedures Surgical History Date Name Laterality Status Provider Name and Address Organization Details Recorded Time endometrectomy of urinary bladder completed Not Available [facility] 12/02/2022 02:37:39 Imaging Results None recorded. Procedure Notes None recorded. Medical Equipment None Reported. Allergies Allergen ID Allergen Name Allergen Category Reaction Reaction Severity Criticality Documentation Date Start Date Code Code System Note Provider Name and Address Organization Details Recorded Time 57751 No known allergy (situatio n) Not available Not available Not available Not available 02/14/2024 [id number] SNANTOINETTE Key APRN [address] [address], [place], [address] , [facility] 4 07:55:52 No known drug allergies Medications [...] Available Not Available Not Available levothyroxi ne 175 mcg tablet 12/19 completed Not Available Not Available Not Available levothyroxi ne 137 mcg tablet TAKE 1 TABLET BY MOUTH EVERY MORNING 30 - 60 MINUTES BEFORE FOOD OR MEDICATIO NS 12/19 completed Not Available Not Available Not Available labetalol 200 mg tablet TAKE 1 TABLET BY MOUTH TWICE DAILY active Not Available Not Available No t Available azithromyci n 250 mg tablet Take 1 dose pk by oral route. 06/16 completed Not Available Not Available Not Available ibuprofen 800 mg tablet TAKE 1 TABLET BY MOUTH EVERY 8 HOURS WITH FOOD NEEDED 12/19 completed Not Available Not Available Not Available benzonatate 200 mg capsule Take 1 capsule 3 times a day by oral route as needed. active Not Available Not Available No t Available glyburide 2.5 mg tablet TAKE 1 TABLET BY MOUTH EVERY DAY active Not Available Not Available No t Available ampicillin 500 mg capsule 12/30 completed Not Available Not Available Not Available Synthroid 100 mcg tablet Take 1 tablet by oral route. 02/13 completed Not Available Not Available Not Available sertraline 100 mg tablet TAKE 1 TABLET BY MOUTH EVERY DAY IN THE MORNING FOR ANXIETY OR DEPRESSIO N 12/19 completed Not Available Not Available Not Available phentermine 37.5 mg tablet Take 1 tablet every day by oral route in AM 02/09 completed Not Available Not Available Not Available valacyclovi r 500 mg tablet TAKE 1 TABLET BY MOUTH TWICE DAILY. START 24 HOURS BEFORE PROCEDURE 01/19 completed Not Available Not Available Not Available tramadol 50 mg tablet Take 1 tablet every 8 hours by oral route for 7 days. 2024 active Not Available Not Available Not Avai lable ketorolac 30 mg/mL (1 mL) injection solution Inject 1 mL every 6 hours by intramusc ular route. 06/16 completed Not Available Not Available Not Available cyanocobala min (vit B-12) 500 mcg tablet Take 1 tablet every day by oral route. active Not Available Not Available No t Available dicyclomine 20 mg tablet active Not Available Not Available Not Available meclizine 25 mg tablet TAKE 1 TABLET BY MOUTH TWICE DAILY 01/19 completed Not Available Not Available Not Available triamcinolo ne acetonide 40 mg/mL suspension for injection Take 1 mL by injection route. 02/09 completed Not Available Not Available Not Available cephalexin 500 mg capsule TAKE 1 CAPSULE BY MOUTH TWICE DAILY FOR 5 DAYS 12/19 completed Not Available Not Available Not Available cyanocobala min (vit B-12) 1,000 mcg/mL injection solution Inject 1 mL every month by subcutane ous route. 02/09 completed Not Available Not Available Not Available levothyroxi ne 125 mcg tablet TAKE 1 TABLET BY MOUTH EVERY DAY 01/19 completed Not Available Not Available Not Available levothyroxi ne 150 mcg tablet 12/19 completed Not Available Not Available Not Available progesteron e micronized 200 mg capsule TAKE 1 CAPSULE BY MOUTH EVERY NIGHT AT BEDTIME 12/19 completed Not Available Not Available Not Available levothyroxi ne 200 mcg tablet 12/19 completed Not Available Not Available Not Available ergocalcife rol (vitamin D2) 1,250 mcg [...] propionate 50 mcg/actuati on nasal spray,suspe nsion [place] 2 sprays every day by intranasa l route. 01/19 completed Not Available Not Available Not Available metformin ER 500 mg tablet,exte nded release 24 hr 01/19 completed Not Available Not Available Not Available sertraline 50 mg tablet TAKE 1 TABLET BY MOUTH EVERY DAY 12/19 completed Not Available Not Available Not Available naproxen 500 mg tablet 06/16 completed Not Available Not Available Not Available levothyroxi ne 112 mcg tablet TAKE 1 TABLET BY MOUTH EVERY DAY 09/03 completed Not Available Not Available Not Available amoxicillin 875 mg-potassiu m clavulanate 125 mg tablet TAKE 1 TABLET BY MOUTH EVERY 12 HOURS FOR 10 DAYS active Not Available Not Available No t Available Wellbutrin SR 200 mg tablet, 12 hr sustained-r elease medicatio n:Wellbut rin SR 200 mg tablet, sustained -release 12 hr dose:0 .0 route:PO frequenc y:DAILY 12/19 completed Not Available Not Available Not Available aripiprazol e 15 mg tablet TAKE 1/2 TABLET BY MOUTH EVERY DAY AT BEDTIME 12/19 completed Not Available Not Available Not Available aripiprazol e 5 mg tablet TAKE [...] completed Not Available Not Available Not Available nitrofurant oin monohydrate /macrocryst als 100 mg capsule TAKE 1 CAPSULE BY MOUTH EVERY 12 HOURS FOR 5 DAYS 12/19 completed Not Available Not Available Not Available [...] % 98 % 94 /min 97.5 [degF] 41292.6 2 g 132 mm[Hg] 84 mm[Hg] Not Available [facility] 3 02:39:56 Date Recorded Heart rate Body temperature Respiratory rate Systolic blood pressure Diastolic blood pressure Provider Name and Address Organization Details Last Updated DateTime 5 98 /min 98 [degF] 14 /min 120 mm[Hg] 80 mm[Hg] Narda Arechiga MA [place] [facility] [employer] 5 11:31:43 Date Recorded Body height Body mass index (BMI) Body weight Oxygen saturation Oxygen saturation in Arterial blood by Pulse oximetry Provider Name and Address Organization Details Last Updated DateTime 12/19/2024 162.56 cm 42.2 kg/m2 284941. 72 g 98 % 98 % ANTONIO Sosa MA [place] [facility] [employer] [facility] 5 11:21:58 Date Recorded Body height Body mass index (BMI) Body weight Body temperature Heart rate Oxygen saturation Oxygen saturation in Arterial blood by Pulse oximetry Systolic blood pressure Diastolic blood pressure Provider Name and Address Organization Details Last Updated DateTime 4 162.56 cm 42.2 kg/m2 258843. 72 g 97.9 [degF] 97 /min 97 % 97 % 118 mm[Hg] 72 mm[Hg] Josi Jaimes MA MA [place] [facility] 4 08:58:30 Date Recorded Body height Body mass index (BMI) Body weight Body temperature Heart rate Oxygen saturation Oxygen saturation in Arterial blood by Pulse oximetry Systolic blood pressure Diastolic blood pressure Provider Name and Address Organization Details Last Updated DateTime 3 162.56 cm 34 kg/m2 99016.2 9 g 97.9 [degF] 102 /min 98 % 98 % 116 mm[Hg] 74 mm[Hg] Evelyne Vo [place] [facility] 3 10:00:46 Date Recorded Body mass index (BMI) Body height Body weight Provider Name and Address Organization Details Last Updated DateTime 05/25/2022 35 kg/m2 162.56 cm 11869.84 g Not Available [facility] 12/02/2022 02:40:01 Social History Question Answer Notes LastModified by Organizat ion Details LastModified Time Tobacco Smoking Status Never Smoker Not Available [facility] 12/02/2022 02:30:32 What Is Your Level Of Caffeine Consumption? Moderate [id number] Information not available 12/02/2022 How Much Tobacco Do You Chew? None MIGRATION.[id number] Information not available 12/02/2022 In The 14 Days Before Symptom Onset, Have You Had Close Contact With A Laboratory-confir med COVID-19 While That Case Was Ill? No MIGRATION.[id number] Information not available 12/02/2022 In The 14 Days Before Symptom Onset, Have You Had Close Contact With A Person Who Is Under Investigation For COVID-19 While That Person Was Ill? No MIGRATION.95715 [id number] Information not available 12/02/2022 What Type Of Diet Are You Following? REGULAR MIGRATION.98010 [id number] Information not available 12/02/2022 Which Illicit Or Recreational Drugs Have You Used? None MIGRATION.07546 [id number] Information not available 12/02/2022 What Is The Highest Grade Or Level Of School You Have Completed Or The Highest Degree You Have Received? KS87782-9 MIGRATION.19746 69541 Information not available 12/02/2022 Have There Been Any Changes To Your Family Or Social Situation? No MIGRATION.84135 [id number] Information not available 12/02/2022 What Is The Fluoride Status Of Your Home? Unknown MIGRATION.27427 [id number] Information not available 12/02/2022 Are There Any Guns Present In Your Home? Yes MIGRATION.69847 13442 Information not available 12/02/2022 Do You Use Insect Repellent Routinely? No MIGRATION.51719 77188 Information not available 12/02/2022 Where Do You Live? [place]House MIGRATION.88587 85324 Information not available 12/02/2022 What Was The Date Of Your Most Recent Tobacco Screening? 01/20/2024 Information not available 01/20/2024 How Many Children Do You Have? 0 Information not available 01/20/2024 Do You Have Any Pets? Yes MIGRATION.53399 38674 Information not available 12/02/2022 What Is Your Relationship Status? Information not available 01/20/2024 Do You Use Your Seat Belt Or Car Seat Routinely? Yes MIGRATION.40135 22829 Information not available 12/02/2022 Are You Sexually Active? Yes Information not available 01/20/2024 Do You Have Smoke And Carbon Monoxide Detectors In Your Home? Yes MIGRATION.63863 73602 Information not available 12/02/2022 Are You Passively Exposed To Smoke? Yes MIGRATION.90859 46984 Information not available 12/02/2022 Are There Any Smokers In Your House? Yes MIGRATION.47674 65957 Information not available 12/02/2022 Do You Use Sunscreen Routinely? No MIGRATION.58988 42308 Information not available 12/02/2022 Have You Recently Traveled Abroad? No MIGRATION.74382 47522 Information not available 12/02/2022 Do You Have Any Dietary Restrictions? No MIGRATION.69605 84622 Information not available 12/02/2022 Sex: Female Functional Status Question Answer Note LastModified by [email or web address] ion Details LastModified Time Do you use any illicit or recreational drugs? No Information not available 01/20/2024 Do you or have you ever used any other forms of tobacco or nicotine? No MIGRATION.998681 9262 Information not available 12/02/2022 What is your level of alcohol consumption? None MIGRATION.299036 0306 Information not available 12/02/2022 Do you or have you ever used smokeless tobacco? 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 Never used electronic cigarettes MIGRATION.056095 0115 Information not available 12/02/2022 What is your exercise level? Occasional walking MIGRATION.594450 6385 Information not available 12/02/2022 Mental Status Question Answer Note LastModified by Organizat ion Details LastModified Time Do you feel stressed (tense, restless, nervous, or anxious, or unable to sleep at night)? [id number] [id number].[id number] Information not available 12/02/2022 Family History Relationship Description Onset Age of this Age Resolved Age Notes LastModified by Organization Details LastModified Time Maternal Grandfather Diabetes mellitus [id number] Not available 12/02/2022 02:37:42 Maternal Grandmother Diabetes mellitus [id number] Not available 12/02/2022 02:37:42 Paternal Grandfather Diabetes mellitus MIGRATION.338 [id number] Not available 12/02/2022 02:37:42 Paternal Grandmother Diabetes mellitus [id number] Not available 12/02/2022 02:37:42 Notes:MOTHER-KIDNEY Medical History Condition Response NERVE DISEASE N BLINDNESS N RHEUMATIC FEVER N KIDNEY STONES N BLADDER PROBLEMS N MRSA N OTHER # 1 N POLIO N LUNG DISEASE/DISORDER N RADIATION / CHEMOTHERAPY N COPD N Other # 2 N BLOOD DISEASES N SURGERY N EAR OR HEARING PROBLEMS N MUMPS N DEPRESSION (INCLUDING POST ) N BOWEL PROBLEMS N STROKE/TIA N ULCERS N BENIGN PROSTATIC HYPERPLASIA N MEASLES N MYOCARDIAL INFARCTION N OBESITY Y GERD/NAUSEA N ANEURYSM N URINARY/BLADDER/KIDNEY PROBLEMS N CORONARY ARTERY DISEASE (CAD) N ADDICTION CONCERNS N Impotence N ENDOMETRIOSIS N USE OF BLOOD THINNERS N SKIN [...] APNEA N CHICKENPOX N INFECTIOUS DISEASE N PROSTATE N HEART ARRHYTHMIA N INSOMNIA N HIGH CHOLESTEROL / HYPERLIPIDEMIA N EYE PROBLEMS N HYPERTHYROIDISM Y NEUROLOGICAL PROBLEMS N EDEMA N CHRONIC PAIN SYNDROME N HYPOTHYROIDISM N CAROTID BLOCKAGE N CONSTIPATION N BACK / NECK PROBLEMS N HAVE YOU BEEN HOSPITALIZED OR SEEN IN [facility] IN THE PAST YEAR ? N ATHEROSCLEROSIS N BREAST PROBLEMS N DIALYSIS N ECZEMA N OSTEOPOROSIS N ARTHRITIS N APPENDICITIS N DIABETES, TYPE N BAD TEETH N ENT N HEARTBURN / REFLUX Y AUTISM SPECTRUM DISORDER (ASD) N HEPATITIS / LIVER DISEASE N GOUT N SLEEP DISORDER N ALZHEIMER'S DISEASE N Brain Problems N DEMENTIA N HERPES N SEIZURES/EPILEPSY N HEADACHES/MIGRAINES N VASCULAR DISEASE N PACEMAKER N Blood Disorder N DIZZINESS N HEART DISEASE/HEART PROBLEMS N KIDNEY DISEASE N MULTIPLE SCLEROSIS N CANCER: SPECIFY N CARDIAC ARRHYTHMIA N ATRIAL FIBRILLATION N Gall Stones N [...] Key APRN [address], [address], [place], [address], [facility] hike [facility] 02/14/2024 07:56:12 COVID-19, mRNA, LNP-S, PF, 30 mcg/0.3 mL dose 1 completed Yahaira Key APRN [address], [address], [place], [address], [employer] [facility] 02/14/2024 07:56:12 COVID-19, mRNA, LNP-S, PF, 30 mcg/0.3 mL dose 1 completed [address], [place], [address], [employer] [facility] hike [facility] 02/14/2024 07:56:12 Influenza, split virus, quadrivalent, preservative 0 completed Not Available [facility] 04/06/2023 00:20:58 IPV 7 completed Yahaira Key APRN [address], [address], [place], [address], [facility] hike [facility] 02/14/2024 07:56:12 IPV 7 completed Yahaira Key APRN [address], [address], [place], [address], [facility] 02/14/2024 07:56:12 IPV 8 completed Yahaira Key APRN [address], [address], [place], [address], [facility] 02/14/2024 07:56:12 IPV 7 completed Yahaira Key APRN [address], [place], [address], [facility] 02/14/2024 07:56:12 IPV 2 completed Yahaira Key APRN [address], [address], [place], [address], [facility] 02/14/2024 07:56:12 MMR 8 completed Yahaira Key APRN [address], [address], [place], [address], [facility] 02/14/2024 07:56:12 MMR 2 completed Yahaira Key APRN [address], [place], [address], [facility] 02/14/2024 07:56:12 COVID-19, mRNA, LNP-S, PF, 30 mcg/0.3 mL dose 1 completed Yahaira Key APRN [address], [place], [address], [facility] 02/14/2024 07:56:12 COVID-19, mRNA, LNP-S, PF, 30 mcg/0.3 mL dose 1 completed Yahaira Key APRN [address], [address], [place], [address], [facility] 02/14/2024 07:56:12 COVID-19, mRNA, LNP-S, PF, 30 mcg/0.3 mL dose 1 completed Yahaira Key APRN [address], [place], [address], [facility] 02/14/2024 07:56:12 influenza, unspecified formulation 9 completed Yahaira Key APRN [address], [address], [place], [address], [facility] 02/14/2024 07:56:12 Tdap 0 completed Yahaira Key APRN [address], [address], [place], [address], [facility] 02/14/2024 07:56:12 Tdap 7 completed Yahaira Key APRN [address], [address], [place], [address], [facility] 02/14/2024 07:56:12 HPV, quadrivalent 0 completed DANIEL Rogers [address], [place], [address], [facility] 02/14/2024 07:56:12 HPV, quadrivalent 9 completed Yahaira Key APRN [address], [place], [address], [facility] 02/14/2024 07:56:12 HPV, quadrivalent 9 completed Yahaira Key APRN [address], [place], [address], [facility] 02/14/2024 07:56:12 Hep B, adolescent or pediatric 7 completed DANIEL Rogers [address], [place], [address], [facility] 02/14/2024 07:56:12 Hep B, adolescent or pediatric 7 completed Yahaira Key APRN [address], [address], [place], [address], [facility] 02/14/2024 07:56:12 Hep B, adolescent or pediatric 7 completed Yahaira Key APRN [address], [address], [place], [address], [facility] hike [facility] 02/14/2024 07:56:12 Hib (PRP-OMP) 7 completed Yahaira Key APRN [address], [address], [place], [address], [facility] 02/14/2024 07:56:12 Hib (PRP-OMP) 8 completed Yahaira Key APRN [address], [address], [place], [address], [facility] 02/14/2024 07:56:12 Hib (PRP-OMP) 7 completed Yahaira Key APRN [address], [address], [place], [address], [facility] hike [facility] 02/14/2024 07:56:13 Hib (PRP-OMP) 7 completed Yahaira Key APRN [address], [address], [place], [address], [facility] hike [facility] 02/14/2024 07:56:13 meningococcal MCV4P 4 completed Yahaira Key APRN [address], [address], [place], [address], [facility] hike [facility] 02/14/2024 07:56:13 DTaP 7 completed Yahaira Key APRN [address], [address], [place], [address], [facility] 02/14/2024 07:56:13 DTaP 7 completed Yahaira eKy APRN [address], [place], [address], [facility] 02/14/2024 07:56:13 DTaP 8 completed Yahaira Key APRN [address], [address], [place], [address], [place] [facility] [employer] [facility] 02/14/2024 07:56:13 DTaP 7 completed Yahaira Key APRN [address], [address], [place], [address], [facility] 02/14/2024 07:56:13 DTaP 2 completed Yahaira Key APRN [address], [address], [place], [address], [facility] hike [facility] 02/14/2024 07:56:13 Influenza, split virus, quadrivalent, PF 7 completed Yahaira Key DEPARTMENTAL SECRETARY [address], [place], [address], [facility] hike [facility] 02/14/2024 07:56:13 Influenza, split virus, quadrivalent, PF 4 completed Yahaira Key APRN [address], [address], [place], [address], [facility] hike [facility] 02/14/2024 07:56:13 Influenza, split virus, quadrivalent, PF 8 completed Yahaira Key APRN [address], [address], [place], [address], [facility] hike [facility] 02/14/2024 07:56:13 Past Encounters Encounter ID Performer Location Encounter Start Date Encounter Closed Date Diagnosis/Indication Diagnosis SNOMED-CT Code Diagnosis ICD10 Code Diagnosis Note [id number] Sadi gant MD [facility] Internal Med [address] [facility] [address] [place] [address] 12/30/2020 00:00:00 12/30/2020 17:10:29 [id number] Sadi gant MD [facility] [address] [facility] [address] [place] [address] 01/27/2021 00:00:00 01/27/2021 16:57:28 [id number] Sadi gant MD [facility] Internal Med [address] [place] [address] 02/21/2021 00:00:00 02/21/2021 14:00:05 [id number] MD ARNOLDO Ortiz[facility] Internal Med [address] [place] [address] 03/21/2021 00:00:00 03/21/2021 17:57:49 [id number] MD BETTINA GayleS[facility] Internal Med [address] [place] [address] 05/15/2021 00:00:00 05/15/2021 17:57:01 [id number] MD ARNOLDO Ortiz[facility] Internal Med [address] [place] [address] 05/29/2021 00:00:00 05/30/2021 13:07:44 [id number] MD ARNOLDO Ortiz[facility] Internal Med [address] [place] [address] 06/16/2021 00:00:00 06/16/2021 21:29:29 [id number] MD BETTINA OrtizS[facility] Internal Med [address] [facility] [address] [place] [address] 07/24/2021 00:00:00 07/25/2021 13:11:45 [id number] MD BETTINA OrtizS[facility] Internal Med [address] [place] [address] 09/16/2021 00:00:00 09/16/2021 19:13:23 [id number] MD ARNOLDO Ortiz[facility] Internal Med [address] [facility] [address] [place] [address] 11/21/2021 00:00:00 11/21/2021 15:00:47 [id number] MD ARNOLDO Ortiz[facility] Internal [facility] [address] [place] [address] 12/26/2021 00:00:00 12/26/2021 11:12:25 [id number] MD BETTINA OrtizS[facility] Internal Med [address] [place] [address] 02/02/2022 00:00:00 02/02/2022 14:33:52 [id number] MD BETTINA OrtizS[facility] Internal [facility] [address] [place] [address] 02/09/2022 00:00:00 02/09/2022 15:40:50 [id number] MD BETTINA OrtizS[facility] Internal Med [address] [place] [address] 03/09/2022 00:00:00 03/09/2022 15:29:51 [id number] SANDEE Dillon [facility] Internal [facility] [address] [place] [address] 04/24/2022 00:00:00 04/24/2022 13:27:36 [id number] Sadi gant MD [facility] Internal [facility] [address] [place] [address] 05/25/2022 00:00:00 05/25/2022 13:31:16 [id number] MD BETTINA OrtizS[facility] Internal Med [address] [facility] [address] [place] [address] 10/08/2022 00:00:00 10/08/2022 10:33:54 [id number] MD BETTINA OrtizS[facility] Internal Med [address] [place] [address] 02/11/2023 09:46:36 02/11/2023 10:21:13 Sleep apnea 21278413 G47.30 has decided not to do in lab study Hypothyroidism 97839629 E03.9 on levothyrox ine Insulin resistance 97165 5000 E88.81 on metformin, ozempic pt is aware of side effects, risks, benefitspt denies any personal or family history of MEN II or MTC, denies and personal history of pancreatit ispt knows to call the office if any severe n/v or abdominal pain Iron deficiency 78475455 E61.1 on supplement Vitamin D deficiency 347 77988 E55.9 on supplement Cobalamin deficiency 190 774179 E53.8 on supplement Mixed anxi ety and depressive disorder 726864805 F41.8 now following psychiatry - Tatum at Dr. Juares's officeon sertraline , wellbutrin , abilifycal l office if any change in mood or behaviorco ntinue counseling with therapist (Nura Maldonado) Obesity 343878391 E66.9 recommend healthy, well balanced mealsfocus on [...] she switch SSB to diet drinks Adult heal th examination 866396744 Z00.00 Hyperlipid emia screening 354003820 Z13.220 Diabetes m ellitus screening 553039522 Z13.1 Depression screening 171 226516 Z13.31 [id number] Sadi gant MD [facility] [address] [facility] [place] [address] 01/20/2024 08:48:33 01/20/2024 09:16:59 Hypothyroidism 45041556 E03.9 Cobalamin deficiency 190 326542 E53.8 Insulin resistance 45819 5000 E88.819 Iron deficiency 76108495 E61.1 Vitamin D deficiency 347 83014 E55.9 Obesity 030622483 E66.9 [id number] Zheng pulido MD [facility] General Surgery [address] [facility] [address] [place] [address] 12/19/2024 11:19:16 12/25/2024 16:25:22 Right upper quadrant pain 458518133 R10.11 Significan t tenderness to RUQ on palpation. Cholelithi asis on CT per ER over the weekend. Ordered US and labs this morning for further evaluation and to r/o possible choledocho lithiasis vs pancreatit is. Pending US/labs, will tentativel y schedule r.a. lap magy for wednesday. Pt agreeable. Explained procedure and risks including pain, bleeding, infection, CBD/bowel/ liver injury and patinet voiced understand ing and wishes to proceed. Cholelithi asis without obstruction 04118598 K80.20 Health Concerns Section Related Observation LastModified by Organization Detai ls LastModified Time None Recorded Concern Status LastModified by Organization Details LastModified Time None Recorded Advance Directives Directive None Recorded Payers Insurance Date Sequence Insurance Name Policy Number Policy Osorio Covered Member ID Osorio Member ID Guarantor Name 12/19/2024 [facility] Drake Eubanksrowena SELF SELF Drake Beck 12/19/2024 1 [facility] [id number] Drake Zafarin [id number] Drake Zafarin 01/20/2024 1 [place] [id number] Yosef Beck [id number] Drake Zafarin 02/02/2025 1 [place] [id number] Yosef Beck [id number] Drake Beck Notes Date Note Type Note Provider Name [...] sweetened beverages. She is due for labs. SANDEE Dillon [address], [facility] [address], [place], [address], [employer] 02/11/2023 10:28:56 01/20/2024 text/html Drake present s today to establish care. She states that she is going through fertility treatments and needs to maintain her thyroid medication. She states her anxiety and depression are under control. She does not wear a CPAP for sleep apnea. 02/11/2023Drake presents today for follow up. She is [...] beverages. She is due for labs. Yahaira Key APRN [address], [address], [place], [address], [email or web address] 01/20/2024 09:15:04 12/19/2024 text/html Patient presents to clinic to discuss abdominal pain. States last week began as just nausea, worsened after mealtimes. Over the weekend, pain became excruciating and she went to the ER where they did a ct scan showing colitis and gallstones. She has since continued to feel miserable and is unable to tolerate even clear liquids, states she feels upper and R sided abdominal pain after eating anything at all at this point. No fever. Did have vomiting on wednesday prior to ER visit.Patient had a baby 8 weeks ago. Not . Zheng Carroll MD [address], [facility] [address], [place], [address], [place] [facility] [employer] 12/19/2024 14:54:13 OBGyn Episode No OBEpisode recorded.
--- OUTSIDE RECORDS SUMMARY | 2025-03-22 08:19 | XMS_ITS | Referral Summary ---
Author Organization [facility] Address [facility] [place] [address] Care Team Providers Care Kiln Head House Operator Name Role Phone Unknown, Notinfile Unavailable Unavailable Yahaira Key NP Primary Care Provider [phone] Andrea Martino MD Unavailable [phone] Allergies No known active allergies Medications ARIPiprazole [...] daily before breakfast 30 tablet 5 4 Active Active Problems Problem Noted Date Diagnosed Date Sprain of deltoid ligament of ankle 02/17/2024 Asthma 02/01/2024 Insulin resistance 02/06/2023 Iron deficiency 02/06/2023 Mixed anxiety and depressive disorder 02/06/2023 Obesity 02/06/2023 Prediabetes 12/21/2022 Cobalamin deficiency 10/01/2022 Vitamin D deficiency 10/01/2022 Fall 11/12/2019 Overview (11/12/2019): 11/11/2019 [facility]; Pt is Resp Therapy at NICU, slipped,fell [...] persistent sinus tract component since April 2011 Immunizations Immunization Administration Dates Next Due Influenza, Unspecified 07/03/2019 Social History Tobacco Use Types Packs/Day Years Used Date Smoking Tobacco: Never Passive Smoke Exposure: Current Smokeless Tobacco: Never Tobacco Cessation:Counseling Given: Not Answered Alcohol Use Standard Drinks/Week Comments Not Currently 0 (1 standard drink = 0.6 oz pur e alcohol) Comments Unknown Sex and Gender Information Value Date Recorded Sex Assigned at Not on file 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 Gender Identity Female 01/24/2024 2:19 PM CDT Sexual Orientation Straight 01/24/2024 2: 19 PM CDT Last Filed Vital Signs Vital Sign Reading Time Taken Comments Blood Pressure 127/79 03/21/2024 12:27 PM CDT Pulse 101 03/21/2024 12:27 PM CDT Temperature 37.2 C (99 F) 02/16/2024 11:19 AM CDT Respiratory Rate - - Oxygen Saturation 98% 02/01/2024 1:21 PM CDT Inhaled Oxygen Concentration - - Weight 114.4 kg (252 lb 3.2 oz) 024 12:27 PM CDT Height 162.6 cm (5' 4) 03/21/2024 12:2 7 PM CDT Body Mass Index 43.29 03/21/2024 12:27 PM CDT Plan of Treatment Not on file Insurance EMPLOYEES EM[employer]ES [employer] [place] [address] [employer] Care Teams Kiln Head House Operator Relationship Specialty Start Date End Date Yahaira Key NP PCP - General Family Medicine 02/16/24 Unknown, Notinfile 01/03/24 Andrea Martino MD [address] [address] Referring Physician Obstetrics and Gynecology 03/03/24
--- OUTSIDE RECORDS SUMMARY | 2025-03-22 08:19 | XMS_ITS | Clinical Summary ---
Author Organization [facility] Address [address] [place] [address] Care Team Providers Care Dispatcher Clerk Name Role Phone Unknown, Notinfile Unavailable Unavailable Yahaira Key NP Primary Care Provider [phone] Andrea Martino MD Unavailable [phone] Allergies No known active allergies Medications ARIPiprazole [...] deficiency 10/01/2022 Fall 11/12/2019 Overview (11/12/2019): 11/11/2019 [facility]; Pt is Resp Therapy at NICU, slipped,fell [...] 02/17/2024 Asthma 02/01/2024 Cystic acne 09/16/2011 Overview: onset age 12 (< 1 year [...] on file Legal 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 Gender Identity Female 01/24/2024 2:19 PM CDT [...] [employer] 2022 [employer] Last Filed Vital Signs Vital Sign Reading [...] Depression Screening 1996 Hepatitis C Screening 1996 Varicella Vaccines (1 of 2 - 13+ 2-dose series) 2009 Regular Well Visit/Exam 18-64 2014 Pneumococcal vaccine <65 (1 of 2 - PCV) 2015 Covid-19 Vaccine (5 - 2023-2 5 season) 2024 09/18/2021, 09/17/2021, 10/28/2020, Additional history exists Influenza Vaccine (Season Ended) 2025 06/04/2020, 07/03/2019, 07/13/2018, Additional history exists DTaP/Tdap/Td Vaccine (8 - Td or Tdap) 12/28/2029 12/29/2019, 05/02/2007, 05/29/2002, Additional history exists Hepatitis B Screening Completed 07/13/1997 , 1996, 1996 HPV Vaccines Completed 12/06/2009, 06/04, 04/02/2009 Insurance EMPLOYEES EMPLOYEES [facility] [employer] [place] [address] [facility] [place] [id number] Care Teams Dispatcher Clerk Relationship Specialty Start Date End Date Yahaira Key NP PCP - General Family Medicine 02/16/24 Unknown, Notinfile 01/03/24 Andrea Martino MD [address] [address] Referring Physician Obstetrics and Gynecology 03/03/24
[2025-03-22 09:24] LABS: Basophils Absolute Auto 0.1 K/mm3 (0.0-0.1); Basophils Percent Auto 1.2 % (0.2-1.2); Eosinophils Absolute Auto 0.2 K/mm3 (0-0.3); Eosinophils Percent Auto 3.1 % (0-4.4); Hematocrit 43.9 % (37.0-47.0); Hemoglobin 14.5 g/dL (12.0-15.0); Immature Granulocyte Absolute 0.01 K/mm3 (0.00-0.031); Immature Granulocyte Percent A 0.2 % (0-0.5); Lymphocytes Absolute Auto 1.87 K/mm3 (0.9-3.2); Lymphocytes Percent Auto 32.4 % (18.3-44.2); Mean Corpuscular Hemoglobin 29.8 pg (26-34); Mean Corpuscular Volume 90.1 fl (80-100); Mean Platelet Volume 10.5 fl (7.4-10.4); Monocytes Absolute Auto 0.5 K/mm3 (0.1-0.6); Neutrophils Absolute Auto 3.2 K/mm3 (1.3-6.7); Neutrophils Percent Auto 55.1 % (45.5-73.1); Platelet Count Result 270 k/mm3 (150-375); Red Blood Count 4.87 M/mm3 (4.2-5.4); Red Cell Distribution Width 12.6 % (11.5-14.5); White Blood Count 5.8 K/mm3 (4.5-10.0)
[2025-03-22 09:35] LABS: Alanine Aminotransferase 37 U/L (6-35); Albumin Level 4.5 g/dL (3.5-5.1); Alkaline Phosphatase 97 U/L (38-126); Anion Gap 11 mmol/L (4-12); Aspartate Amino Transferase 33 U/L (14-36); Bilirubin,Total 0.7 mg/dL (0.2-1.3); Blood Urea Nitrogen 14 mg/dL (7-17); Calcium 9.2 mg/dL (8.4-10.2); Carbon Dioxide 23 mmol/L (22-30); Chloride 106 mmol/L (98-107); Cholesterol 197 mg/dL (0-200); Estimated Glomerular Filt Rate > 60; Glucose 108 mg/dL (65-110); HDL Direct 44 mg/dL; Iron 64 ug/dL (37-170); Potassium 3.9 mmol/L (3.4-5.0); Sodium 140 mmol/L (137-145); Total Protein 8.5 g/dL (6.3-8.2); Triglycerides 72 mg/dL (<150)
[2025-03-22 09:44] LABS: Percent Iron Saturation 19 % (20-50)
[2025-03-22 09:47] LABS: LDL Cholesterol Direct 110 mg/dL
[2025-03-22 09:57] LABS: Vitamin D 25 Hydroxy 48.8 ng/mL
[2025-03-22 10:39] LABS: Folic Acid 9.5 ng/mL (2.76->20)
[2025-03-22 11:12] LABS: Hemoglobin A1C 4.9 % (<5.7)
== END 2025-03-22 08:14 | disposition home or self-care (01) ==
LOC: ANHLAB 08:14
PROVIDERS: PCP Nurse Practitioner Family; Visit Provider Nurse Practitioner Family
DX: Z00.00 Encounter for general adult medical examination without abnormal findings (principal); E03.9 Hypothyroidism, unspecified; E55.9 Vitamin D deficiency, unspecified; D50.8 Other iron deficiency anemias; F41.9 Anxiety disorder, unspecified; E66.01 Morbid (severe) obesity due to excess calories; Z68.41 Body mass index [BMI] 40.0-44.9, adult; Z76.89 Persons encountering health services in other specified circumstances; Z13.1 Encounter for screening for diabetes mellitus; Z13.228 Encounter for screening for other metabolic disorders; Z13.220 Encounter for screening for lipoid disorders
CPT/HCPCS: 36415; 80053; 80061; 82306; 82607; 82728; 82746; 83036; 83540; 83550; 84439; 84443; 85025

== ENCOUNTER 2025-08-02 11:35 | Outpatient (CLI) | payer BC, SELFPAY ==
--- OUTSIDE RECORDS SUMMARY | 2009-07-18 04:00 | XMS_ITS | Continuity of Care Document ---
Author [place] [facility] [place] [address] [place] [address] Phone Care Team Providers Care Loan Reviewer Name Role Phone Katrina Walsh Unavailable Unavailable Procedures Procedure Date Eye Exam & Treatment Advance Directives Directive Yes / No Effective Date File Name No Information Encounters Encounter Description Practice Location Reason(s) For Visit Diagnoses Date Provider Providers Copied on Encounter [facility], [address], [place], [place], [id number], [place] tel:[phone] [facility] No Information 5-200 9 Jillian Herndon. [address] , [address], [place], [address], [place]. tel:[phone] Family History Family Member Type Diagnosis Age At Onset No Information Payers Payer name Insurance type Covered constitution party ID Authoriza tion(s) No Information Social History Type Description Quantity Date Captured Comments Sex Female Smoking Status No Information Chief Complaint And Reason For Visit No Information Reason For Referral Reason For Referral No Information History Of Present Illness Encounter Date Complaint History Of Prese nt Illness No Information Functional Status Date Functional Assessmen t No Information Instructions Date Instruction Additional Infor mation No Information Assessments Type Assessment Date No Information Patient Care Teams Name Effective Dates (start - stop) Status Members No Information
--- NOTE | ~2025-08-02 | XR_ITS ---
XR lumbar spine 2-3V Indication: M54.50 - Low back pain, unspecified Comparison: None Findings: The vertebral heights are intact. No fracture or subluxation. The disc heights are intact. Soft tissues unremarkable Impression: No acute abnormality. Reviewed, dictated and finalized at location P. Impression: No acute abnormality.
--- OUTSIDE RECORDS SUMMARY | 2025-08-02 12:45 | XMS_ITS | Data Portability ---
Author Organization [place] [facility] [email or web address], Main Office Address [address] [place] [address] Assessment Encounter Date Assessment Date Assessment LastModified by Organization Details LastModified Time 02/11/2023 02/11/2023 [employer]- [employer]- 02/11/23 Call office if worse, ER if life threatening illness RTC 4 months and PRN She voices understanding of plan and agrees [email or web address] Not available 02/11/2023 10:26:28 Plan of Treatment Reminders Order Date Submit Date Provider Last Modified By Organization Details Last Modified Time Details Appointments None recorded. Lab iron + total iron-christina ng capacity (TIBC), serum 2023 024 [facility] (Lab), [address] [place], [address], 4 08:06:06 ferritin, serum or plasma 2023 024 [facility] (Lab), [address] [place], [address], 4 08:06:06 vitamin D, 25-hydroxy , total, serum 2023 024 [facility] (Lab), [address] [place], [address], 4 08:06:06 glycohemog lobin, total, blood 2023 024 [facility] (Lab), [address] [place], [address], 4 08:06:06 TSH, serum or plasma 2023 024 [facility] (Lab), [address] [place], [address], 4 11:31:05 T4, free, serum 2023 024 [facility] (Lab), [address] [place], [address], 4 08:06:05 CBC 2023 024 [facility] (Lab), [address] [place], [address], 4 08:06:06 lipid panel, serum 2023 024 [facility] (Lab), [address] [place], [address], 4 08:06:06 CMP, serum or plasma 2023 024 [facility] (Lab), [address] [place], [address], 4 08:08:24 vitamin B12 + folate, serum or blood 2023 024 [facility] (Lab), [address] [place], [address], 4 08:06:05 iron + total iron-christina ng capacity (TIBC), serum 2022 023 [facility] (Lab), [address] [place], [address], 3 12:50:11 ferritin, serum or plasma 2022 023 [facility] (Lab), [address] [place], [address], 3 13:22:22 lipid panel, serum 2022 023 [facility] (Lab), [address] [place], [address], 3 12:50:08 CBC w/ auto diff 2022 023 [facility] (Lab), [address] [place], [address], 3 12:31:40 CMP, serum or plasma 2022 023 [facility] (Lab), [address] [place], [address], 3 12:50:05 vitamin D, 25-hydroxy , total, serum [email or web address] (Lab), [address] [place], [address], 3 10:56:28 glycohemog lobin, total, blood 2022 023 [facility] (Lab), [address] [place], [address], 3 12:47:35 TSH, serum or plasma 2022 023 [facility] (Lab), [address] [place], [address], 3 13:22:03 T4, free, serum 2022 023 [facility] (Lab), [address] [place], [address], 3 13:07:19 vitamin B12 + folate, serum or blood 2022 023 [email or web address] [facility] ([facility]), [address], [place], [address], 10:56:28 Referral None recorded. Procedures None recorded. Surgeries None recorded. Imaging None recorded. Medication Orders tramadol 50 mg tablet 2024 025 [email or web address] [facility] #[id number], [address], [place], [address], 09:37:36 levothyrox ine 137 mcg tablet [email or web address] [id number], [address], [place], [place], [id number], 11:22:19 Patient TargetsNo targets recorded. Patient Instructions Encounter Date Encounter Id Patient Instructions Last Modified By Organization Details Last Modified Time 02/11/2023 [id number] INFLUENZA VACCIN E Your next one in [...] relationship GLUCOSE SCREENING Ordered LIPID SCREENING Ordered Not available 02/11/2023 10:28:20 01/20/2024 [id number] Follow up in 6 month and as needed Obtain labs Medications sent to pharmacy [email or web address] Not available 01/20/2024 09:15:00 Reason for Referral None Reported. Results Created Date Observation Date Name Description Value Unit Range Abnormal Flag Note LastModifiedBy Organization Detail LastModifiedTime 10/01/2010/02/2022 THYRO ID PEROX IDASE (TPO) AB thyroid peroxidase (tpo) Ab >600 IU/mL 0-34 high Perfo rmed at: [facility] ([facility]3] [address], [place] [address] Lab Direc tor: Giovanni hutchins PhD, Phone : [phone] Not Available [facility] (Lab) [address] [place], [address], 10/02/2022 09:11:04 10/01/20 22 10/02/2022 INSUL IN insulin 12.3 uIU/m L 2.6-24 .9 Perfo rmed at: [facility] ([facility]3] [address], [place] [address] Lab Direc tor: Giovanni hutchins PhD, Phone : [phone] Not Available [facility] (Lab) [address] [place], [address], 10/02/2022 09:11:01 10/01/20 22 10/01/2022 HEMOG LOBIN A1C HA1C 5.0 % 4.0-6. 0 Diabe faye Scree sarah Crite beto: <5.7% Consi stent with absen ce of diabe faye 5.7-6 .4% Consi stent with incre ased risk for diabe faye (pred iabet es) >OR=6 .5% Consi stent with diabe faye REFER ENCE: Diabe faye Care 2016, 39(Rosaels ppl.1 ):s13 -s22 Not Available [facility] (Lab) [address] [place], [address], 10/01/2022 20:48:50 10/01/20 22 10/01/2022 FOLAT E, SERUM /PLAS MA folate 5.35 NG/mL 2.76-2 0.0 Not Available [facility] (Lab) [address] [place], [address], 10/01/2022 19:06:11 10/01/20 22 10/01/2022 VITAM IN B12 (NICOLE GERTRUDE ) vb12 405 pg/mL 239-93 1 Not Available [facility] (Lab) [address] [place], [address], 10/01/2022 19:06:00 10/01/20 22 10/01/2022 LIZBET TIN ferritin 46 NG/mL 6.24-1 37 Not Available [facility] (Lab) [address] [place], [address], 10/01/2022 18:37:12 10/01/20 22 10/01/2022 TSH thyroid-stim ulating hormone 3.330 uIU/m L 0.465- 4.680 Not Available [facility] (Lab) [address] [place], [address], 10/01/2022 18:37:01 10/01/20 22 10/01/2022 T3 FREE free T3 3.6 pg/mL 2.77-5 .27 Not Available [facility] (Lab) [address] [place], [address], 10/01/2022 18:36:43 10/01/20 22 10/01/2022 T4 FREE free T4 0.99 NG/dL 0.78-2 .19 Not Available [facility] (Lab) [address] [place], [address], 10/01/2022 18:36:41 10/01/20 22 10/01/2022 VITAM IN D 25-HY DROXY [id number] 21.4 NG/mL 30-100 low Vitam in D Statu s: Defic ient: <20 ng/mL Insuf ficie nt: 20-29 ng/mL Suffi cient : 30-10 0 ng/mL Not Available [facility] (Lab) [address] [place], [address], 10/01/2022 18:35:51 10/01/20 22 10/01/2022 IRON/ TIBC PANEL total iron binding capacity 308 mcg/d L 265-47 5 Not Available [facility] (Lab) [address] [place], [address], 10/01/2022 18:04:25 10/01/20 22 10/01/2022 IRON/ TIBC PANEL % transferrin saturation 20 % 20-55 Not Available [facility] (Lab) [address] [place], [address], 10/01/2022 18:04:25 10/01/20 22 10/01/2022 IRON/ TIBC PANEL unsaturated iron bind capacity 246 mcg/d L 126-38 2 Not Available [facility] (Lab) [address] [place], [address], 10/01/2022 18:04:25 10/01/20 22 10/01/2022 IRON/ TIBC PANEL iron 62 mcg/d L 42-175 Not Available [facility] (Lab) [address] [place], [address], 10/01/2022 18:04:25 10/01/20 22 10/01/2022 LIPID PANEL [...] NOT BE REPOR DAVID. Not Available [facility] (Lab) [address] [place], [address], 10/01/2022 18:01:08 10/01/20 22 10/01/2022 LIPID PANEL cholesterol 181 mg/dL 140-19 9 NIH DARSHAN NSUS RECOM MENDA TION FOR MAGY STERO L: ADULT CHILD LOW RISK: <200 <170 BORDE RLINE : <200- 239 ----- HIGH RISK: >240 >200 Not Available [facility] (Lab) [address] [place], [address], 10/01/2022 18:01:08 10/01/20 22 10/01/2022 LIPID PANEL triglyceride s 101 mg/dL 0-150 NIH DARSHAN NSUS REPOR T RECOM MENDA TION FOR TRIGL YCERI LATOSHA: ADULT CHILD LOW RISK: <150 ----- BODER LINE: 150-1 99 ----- HIGH RISK: >200 ----- Not Available [facility] (Lab) [address] [place], [address], 10/01/2022 18:01:08 10/01/20 22 10/01/2022 LIPID PANEL HDL cholesterol 51 mg/dL 40- Not Available [facility] (Lab) [address] [place], [address], 10/01/2022 18:01:08 10/01/20 22 10/01/2022 COMPR EHENS KOKO METAB OLIC PANEL total protein 7.6 g/dL 6.3-8. 2 Not Available [facility] (Lab) [address] [place], [address], 10/01/2022 18:01:05 10/01/20 22 10/01/2022 COMPR EHENS KOKO METAB OLIC PANEL alanine aminotransfe rase 23 U/L 0-35 Not Available [facility] (Lab) [address] [place], [address], 10/01/2022 18:01:05 10/01/20 22 10/01/2022 COMPR EHENS KOKO METAB OLIC PANEL aspartate aminotransfe rase 26 U/L 15-37 Not Available [facility] (Lab) [address] [place], [address], 10/01/2022 18:01:05 10/01/20 22 10/01/2022 COMPR EHENS KOKO METAB OLIC PANEL bilirubin, total 0.50 mg/dL 0.20-1 .30 Not Available [facility] (Lab) [address] [place], [address], 10/01/2022 18:01:05 10/01/20 22 10/01/2022 COMPR EHENS KOKO METAB OLIC PANEL calcium 9.3 mg/dL 8.4-10 .2 Not Available [facility] (Lab) [address] [place], [address], 10/01/2022 18:01:05 10/01/20 22 10/01/2022 COMPR EHENS KOKO METAB OLIC PANEL albumin 4.4 g/dL 3.4-5. 0 Not Available [facility] (Lab) [address] [place], [address], 10/01/2022 18:01:05 10/01/20 22 10/01/2022 COMPR EHENS KOKO METAB OLIC PANEL globulin 3.2 g/dL 2.6-4. 2 Not Available [facility] (Lab) [address] [place], [address], 10/01/2022 18:01:05 10/01/20 22 10/01/2022 COMPR EHENS KOKO METAB OLIC PANEL A/G ratio 1.4 ratio 1.0-2. 0 Not Available [facility] (Lab) [address] [place], [address], 10/01/2022 18:01:05 10/01/20 22 10/01/2022 COMPR EHENS KOKO METAB OLIC PANEL sodium 138 mmol/ L 137-14 5 Not Available [facility] (Lab) [address] [place], [address], 10/01/2022 18:01:05 10/01/20 22 10/01/2022 COMPR EHENS KOKO METAB OLIC PANEL potassium 4.0 mmol/ L 3.5-5. 1 Not Available [facility] (Lab) [address] [place], [address], 10/01/2022 18:01:05 10/01/20 22 10/01/2022 COMPR EHENS KOKO METAB OLIC PANEL chloride 101 mmol/ L 98-107 Not Available [facility] (Lab) [address] [place], [address], 10/01/2022 18:01:05 10/01/20 22 10/01/2022 COMPR EHENS KOKO METAB OLIC PANEL carbon dioxide 27 mmol/ L 22-30 Not Available [facility] (Lab) [address] [place], [address], 10/01/2022 18:01:05 10/01/20 22 10/01/2022 COMPR EHENS KOKO METAB OLIC PANEL anion gap 14.0 mmol/ L 14-22 Not Available [facility] (Lab) [address] [facility] [place], [address], 10/01/2022 18:01:05 10/01/20 22 10/01/2022 COMPR EHENS KOKO METAB OLIC PANEL glucose 87 mg/dL 70-99 Not Available [facility] (Lab) [address] [facility] [place], [address], 10/01/2022 18:01:05 10/01/20 22 10/01/2022 COMPR EHENS KOKO METAB OLIC PANEL BUN 10 mg/dL 8-19 Not Available [facility] (Lab) [address] [place], [address], 10/01/2022 18:01:05 10/01/20 22 10/01/2022 COMPR EHENS KOOK METAB OLIC PANEL creatinine 0.89 mg/dL 0.66-1 .25 Not Available [facility] (Lab) [address] [facility] [place], [address], 10/01/2022 18:01:05 10/01/20 22 10/01/2022 COMPR EHENS KOKO METAB OLIC PANEL GFR >60 Refer ence Range : [place] GFR Healt hy Adult : >60 [...] ages must be made by the clini roaslia. The MDRD study equat ion has not been valid ated for the evalu ation of serum creat inine relat ed to nutri janet l statu s or medic ation usage . For perso ns <18 years of age, a pedia tric GFR calcu lator is avail able on the [facility] websi te: https ://neto w.jose m weeks.o mei/pr michela walker s/oneilo qi/gf r_cal culat or Not Available [facility] (Lab) [address] [place], [address], 10/01/2022 18:01:05 10/01/20 22 10/01/2022 COMPR EHENS KOKO METAB OLIC PANEL alkaline phosphatase 102 U/L 38-126 Not Available [facility] (Lab) [address] [place], [address], 10/01/2022 18:01:05 10/01/2010/01/2022 CBC/C OMPLE TE BLD COUNT W/DIF F mean red cell volume 89.2 fL 82.0-9 9.0 Not Available [facility] (Lab) [address] [place], [address], 10/01/2022 18:01:03 10/01/20 22 10/01/2022 CBC/C OMPLE TE BLD COUNT W/DIF F red blood cells 4.89 x10'6 /uL 3.80-5 .20 Not Available [facility] (Lab) [address] [place], [address], 10/01/2022 18:01:03 10/01/20 22 10/01/2022 CBC/C OMPLE TE BLD COUNT W/DIF F hemoglobin 14.2 g/dL 12.0-1 5.6 Not Available [facility] (Lab) [address] [place], [address], 10/01/2022 18:01:03 10/01/20 22 10/01/2022 CBC/C OMPLE TE BLD COUNT W/DIF F hematocrit 43.6 % 35.7-4 5.7 Not Available [facility] (Lab) [address] [place], [address], 10/01/2022 18:01:03 10/01/20 22 10/01/2022 CBC/C OMPLE TE BLD COUNT W/DIF F mean red cell hemoglobin 29.0 pg 27.0-3 3.0 Not Available [facility] (Lab) [address] [place], [address], 10/01/2022 18:01:03 10/01/20 22 10/01/2022 CBC/C OMPLE TE BLD COUNT W/DIF F mean RBC HGB concentratio n 32.6 g/dL 31.0-3 6.0 Not Available [facility] (Lab) [address] [place], [address], 10/01/2022 18:01:03 10/01/20 22 10/01/2022 CBC/C OMPLE TE BLD COUNT W/DIF F red cell distribution width 13.6 % 11.8-1 5.5 Not Available [facility] (Lab) [address] [place], [address], 10/01/2022 18:01:03 10/01/20 22 10/01/2022 CBC/C OMPLE TE BLD COUNT W/DIF F platelets 258 x10'3 /uL 150-40 0 Not Available [facility] (Lab) [address] [place], [address], 10/01/2022 18:01:03 10/01/20 22 10/01/2022 CBC/C OMPLE TE BLD COUNT W/DIF F mean platelet volume 10.2 fL 9.0-12 .4 Not Available [facility] (Lab) [address] [place], [address], 10/01/2022 18:01:03 10/01/20 22 10/01/2022 CBC/C OMPLE TE BLD COUNT W/DIF F neutrophils 61.7 % 39.0-7 2.0 Not Available [facility] (Lab) [address] [place], [address], 10/01/2022 18:01:03 10/01/20 22 10/01/2022 CBC/C OMPLE TE BLD COUNT W/DIF F lymphocytes 27.4 % 16.0-4 7.0 Not Available [facility] (Lab) [address] [place], [address], 10/01/2022 18:01:03 10/01/20 22 10/01/2022 CBC/C OMPLE TE BLD COUNT W/DIF F monocytes 7.5 % 5.0-12 .0 Not Available [facility] (Lab) [address] [place], [address], 10/01/2022 18:01:03 10/01/20 22 10/01/2022 CBC/C OMPLE TE BLD COUNT W/DIF F eosinophils 2.5 % 1.0-7. 0 Not Available [facility] (Lab) [address] [place], [address], 10/01/2022 18:01:03 10/01/20 22 10/01/2022 CBC/C OMPLE TE BLD COUNT W/DIF F basophils 0.8 % 0.0-2. 0 Not Available [facility] (Lab) [address] [place], [address], 10/01/2022 18:01:03 10/01/20 22 10/01/2022 CBC/C OMPLE TE BLD COUNT W/DIF F immature granulocytes 0.1 % 0.00-0 .50 Not Available [facility] (Lab) [address] [place], [address], 10/01/2022 18:01:03 10/01/20 22 10/01/2022 CBC/C OMPLE TE BLD COUNT W/DIF F neutrophils, absolute count 5.58 x10'3 /uL 1.5-8. 0 Not Available [facility] (Lab) [address] [place], [address], 10/01/2022 18:01:03 10/01/20 22 10/01/2022 CBC/C OMPLE TE BLD COUNT W/DIF F lymphocytes, absolute count 2.48 x10'3 /uL 1.07-3 .43 Not Available [facility] (Lab) [address] [place], [address], 10/01/2022 18:01:03 10/01/20 22 10/01/2022 CBC/C OMPLE TE BLD COUNT W/DIF F monocytes, absolute count 0.68 x10'3 /uL 0.29-0 .99 Not Available [facility] (Lab) [address] [place], [address], 10/01/2022 18:01:03 10/01/20 22 10/01/2022 CBC/C OMPLE TE BLD COUNT W/DIF F eosinophils, absolute count 0.23 x10'3 /uL 0.02-0 .53 Not Available [facility] (Lab) [address] [place], [address], 10/01/2022 18:01:03 10/01/20 22 10/01/2022 CBC/C OMPLE TE BLD COUNT W/DIF F basophils, absolute count 0.07 x10'3 /uL 0.01-0 .08 Not Available [facility] (Lab) [address] [place], [address], 10/01/2022 18:01:03 10/01/20 22 10/01/2022 CBC/C OMPLE TE BLD COUNT W/DIF F immature granulocytes ,absolute 0.01 x10'3 /uL 0.00-0 .05 Not Available [facility] (Lab) [address] [place], [address], 10/01/2022 18:01:03 10/01/20 22 10/01/2022 CBC/C OMPLE TE BLD COUNT W/DIF F nucleated red blood cells 0.0 % -0 Not Available [facility] (Lab) [address] [place], [address], 10/01/2022 18:01:03 10/01/20 22 10/01/2022 CBC/C OMPLE TE BLD COUNT W/DIF F NRBC# 0.00 x10'3 /uL Not Available [facility] (Lab) [address] [place], [address], 10/01/2022 18:01:03 10/01/20 22 10/01/2022 CBC/C OMPLE TE BLD COUNT W/DIF F white blood cells 9.1 x10'3 /uL 4.2-10 .8 Not Available [facility] (Lab) [address] [place], [address], 10/01/2022 18:01:03 04/02/20 23 04/02/2023 CBC/C OMPLE TE BLD COUNT W/DIF F white blood cells 7.5 x10'3 /uL 4.2-10 .8 Not Available [facility] (Lab) [address] [place], [address], 04/02/2023 12:31:40 04/02/20 23 04/02/2023 CBC/C OMPLE TE BLD COUNT W/DIF F red blood cells 4.33 x10'6 /uL 3.80-5 .20 Not Available [facility] (Lab) [address] [place], [address], 04/02/2023 12:31:40 04/02/20 23 04/02/2023 CBC/C OMPLE TE BLD COUNT W/DIF F hemoglobin 12.6 g/dL 12.0-1 5.6 Not Available [facility] (Lab) [address] [place], [address], 04/02/2023 12:31:40 04/02/20 23 04/02/2023 CBC/C OMPLE TE BLD COUNT W/DIF F hematocrit 38.8 % 35.7-4 5.7 Not Available [facility] (Lab) [address] [place], [address], 04/02/2023 12:31:40 04/02/20 23 04/02/2023 CBC/C OMPLE TE BLD COUNT W/DIF F mean red cell volume 89.6 fL 82.0-9 9.0 Not Available [facility] (Lab) [address] [place], [address], 04/02/2023 12:31:40 04/02/20 23 04/02/2023 CBC/C OMPLE TE BLD COUNT W/DIF F mean red cell hemoglobin 29.1 pg 27.0-3 3.0 Not Available [facility] (Lab) [address] [place], [address], 04/02/2023 12:31:40 04/02/20 23 04/02/2023 CBC/C OMPLE TE BLD COUNT W/DIF F mean RBC HGB concentratio n 32.5 g/dL 31.0-3 6.0 Not Available [facility] (Lab) [address] [place], [address], 04/02/2023 12:31:40 04/02/20 23 04/02/2023 CBC/C OMPLE TE BLD COUNT W/DIF F red cell distribution width 14.2 % 11.8-1 5.5 Not Available [facility] (Lab) [address] [place], [address], 04/02/2023 12:31:40 04/02/20 23 04/02/2023 CBC/C OMPLE TE BLD COUNT W/DIF F platelets 231 x10'3 /uL 150-40 0 Not Available [facility] (Lab) [address] [place], [address], 04/02/2023 12:31:40 04/02/20 23 04/02/2023 CBC/C OMPLE TE BLD COUNT W/DIF F mean platelet volume 10.0 fL 9.0-12 .4 Not Available [facility] (Lab) [address] [place], [address], 04/02/2023 12:31:40 04/02/20 23 04/02/2023 CBC/C OMPLE TE BLD COUNT W/DIF F neutrophils 61.1 % 39.0-7 2.0 Not Available [facility] (Lab) [address] [place], [address], 04/02/2023 12:31:40 04/02/20 23 04/02/2023 CBC/C OMPLE TE BLD COUNT W/DIF F lymphocytes 29.1 % 16.0-4 7.0 Not Available [facility] (Lab) [address] [place], [address], 04/02/2023 12:31:40 04/02/20 23 04/02/2023 CBC/C OMPLE TE BLD COUNT W/DIF F monocytes 6.8 % 5.0-12 .0 Not Available [facility] (Lab) [address] [place], [address], 04/02/2023 12:31:40 04/02/20 23 04/02/2023 CBC/C OMPLE TE BLD COUNT W/DIF F eosinophils 1.9 % 1.0-7. 0 Not Available [facility] (Lab) [address] [place], [address], 04/02/2023 12:31:40 04/02/20 23 04/02/2023 CBC/C OMPLE TE BLD COUNT W/DIF F basophils 0.7 % 0.0-2. 0 Not Available [facility] (Lab) [address] [place], [address], 04/02/2023 12:31:40 04/02/20 23 04/02/2023 CBC/C OMPLE TE BLD COUNT W/DIF F immature granulocytes 0.4 % 0.00-0 .50 Not Available [facility] (Lab) [address] [place], [address], 04/02/2023 12:31:40 04/02/20 23 04/02/2023 CBC/C OMPLE TE BLD COUNT W/DIF F neutrophils, absolute count 4.60 x10'3 /uL 1.5-8. 0 Not Available [facility] (Lab) [address] [place], [address], 04/02/2023 12:31:40 04/02/20 23 04/02/2023 CBC/C OMPLE TE BLD COUNT W/DIF F lymphocytes, absolute count 2.19 x10'3 /uL 1.07-3 .43 Not Available [facility] (Lab) [address] [place], [address], 04/02/2023 12:31:40 04/02/20 23 04/02/2023 CBC/C OMPLE TE BLD COUNT W/DIF F monocytes, absolute count 0.51 x10'3 /uL 0.29-0 .99 Not Available [facility] (Lab) [address] [place], [address], 04/02/2023 12:31:40 04/02/20 23 04/02/2023 CBC/C OMPLE TE BLD COUNT W/DIF F eosinophils, absolute count 0.14 x10'3 /uL 0.02-0 .53 Not Available [facility] (Lab) [address] [place], [address], 04/02/2023 12:31:40 04/02/20 23 04/02/2023 CBC/C OMPLE TE BLD COUNT W/DIF F basophils, absolute count 0.05 x10'3 /uL 0.01-0 .08 Not Available [facility] (Lab) [address] [place], [address], 04/02/2023 12:31:40 04/02/20 23 04/02/2023 CBC/C OMPLE TE BLD COUNT W/DIF F immature granulocytes ,absolute 0.03 x10'3 /uL 0.00-0 .05 Not Available [facility] (Lab) [address] [place], [address], 04/02/2023 12:31:40 04/02/20 23 04/02/2023 CBC/C OMPLE TE BLD COUNT W/DIF F nucleated red blood cells 0.0 % -0 Not Available [facility] (Lab) [address] [place], [address], 04/02/2023 12:31:40 04/02/20 23 04/02/2023 CBC/C OMPLE TE BLD COUNT W/DIF F NRBC# 0.00 x10'3 /uL Not Available [facility] (Lab) [address] [place], [address], 04/02/2023 12:31:40 04/02/20 23 04/02/2023 HEMOG LOBIN A1C HA1C 4.6 % 4.0-6. 0 Diabe faye Scree sarah Crite beto: <5.7% Consi stent with absen ce of diabe faye 5.7-6 .4% Consi stent with incre ased risk for diabe faye (pred iabet es) >OR=6 .5% Consi stent with diabe faye REFER ENCE: Diabe faye Care 2016, 39(Rosales ppl.1 ):s13 -s22 Not Available [facility] (Lab) [address] [place], [address], 04/02/2023 12:47:35 04/02/20 23 04/02/2023 COMPR EHENS KOKO METAB OLIC PANEL sodium 140 mmol/ L 137-14 5 Not Available [facility] (Lab) [address] [place], [address], 04/02/2023 12:50:05 04/02/20 23 04/02/2023 COMPR EHENS KOKO METAB OLIC PANEL potassium 4.2 mmol/ L 3.5-5. 1 Not Available [facility] (Lab) [address] [place], [address], 04/02/2023 12:50:05 04/02/20 23 04/02/2023 COMPR EHENS KOKO METAB OLIC PANEL chloride 105 mmol/ L 98-107 Not Available [facility] (Lab) [address] [place], [address], 04/02/2023 12:50:05 04/02/20 23 04/02/2023 COMPR EHENS KOKO METAB OLIC PANEL carbon dioxide 27 mmol/ L 22-30 Not Available [facility] (Lab) [address] [place], [address], 04/02/2023 12:50:05 04/02/20 23 04/02/2023 COMPR EHENS KOKO METAB OLIC PANEL anion gap 12.2 mmol/ L 14-22 low Not Available [facility] (Lab) [address] [place], [address], 04/02/2023 12:50:05 04/02/20 23 04/02/2023 COMPR EHENS KOKO METAB OLIC PANEL glucose 95 mg/dL 70-99 Not Available [facility] (Lab) [address] [place], [address], 04/02/2023 12:50:05 04/02/20 23 04/02/2023 COMPR EHENS KOKO METAB OLIC PANEL BUN 11 mg/dL 8-19 Not Available [facility] (Lab) [address] [place], [address], 04/02/2023 12:50:05 04/02/20 23 04/02/2023 COMPR EHENS KOKO METAB OLIC PANEL creatinine 0.99 mg/dL 0.66-1 .25 Not Available [facility] (Lab) [address] [place], [address], 04/02/2023 12:50:05 04/02/20 23 04/02/2023 COMPR EHENS KOKO METAB OLIC PANEL GFR >60 Refer ence Range : [place] [facility] GFR Healt hy Adult : >60 [...] calcu lator is avail able on the [facility] websi te: https ://ww w.kid desi.o rg/pr ofess ional s/kdo qi/gf r_cal culat or Not Available [facility] (Lab) [address] [place], [address], 04/02/2023 12:50:05 04/02/20 23 04/02/2023 COMPR EHENS KOKO METAB OLIC PANEL alkaline phosphatase 85 U/L 38-126 Not Available [facility] (Lab) [address] [place], [address], 04/02/2023 12:50:05 04/02/20 23 04/02/2023 COMPR EHENS KOKO METAB OLIC PANEL alanine aminotransfe rase 28 U/L 0-35 Not Available [facility] (Lab) [address] [place], [address], 04/02/2023 12:50:05 04/02/20 23 04/02/2023 COMPR EHENS KOKO METAB OLIC PANEL aspartate aminotransfe rase 28 U/L 15-37 Not Available [facility] (Lab) [address] [place], [address], 04/02/2023 12:50:05 04/02/20 23 04/02/2023 COMPR EHENS KOKO METAB OLIC PANEL bilirubin, total 0.40 mg/dL 0.20-1 .30 Not Available [facility] (Lab) [address] [place], [address], 04/02/2023 12:50:05 04/02/20 23 04/02/2023 COMPR EHENS KOKO METAB OLIC PANEL calcium 8.9 mg/dL 8.4-10 .2 Not Available [facility] (Lab) [address] [place], [address], 04/02/2023 12:50:05 04/02/20 23 04/02/2023 COMPR EHENS KOKO METAB OLIC PANEL total protein 7.0 g/dL 6.3-8. 2 Not Available [facility] (Lab) [address] [place], [address], 04/02/2023 12:50:05 04/02/20 23 04/02/2023 COMPR EHENS KOKO METAB OLIC PANEL albumin 3.9 g/dL 3.4-5. 0 Not Available [facility] (Lab) [address] [place], [address], 04/02/2023 12:50:05 04/02/20 23 04/02/2023 COMPR EHENS KOKO METAB OLIC PANEL globulin 3.1 g/dL 2.6-4. 2 Not Available [facility] (Lab) [address] [place], [address], 04/02/2023 12:50:05 04/02/20 23 04/02/2023 COMPR EHENS KOKO METAB OLIC PANEL A/G ratio 1.3 ratio 1.0-2. 0 Not Available [facility] (Lab) [address] [place], [address], 04/02/2023 12:50:05 04/02/20 23 04/02/2023 LIPID PANEL cholesterol 192 mg/dL 140-19 9 NIH DARSHAN NSUS RECOM MENDA TION FOR MAGY STERO L: ADULT CHILD LOW RISK: <200 <170 BORDE RLINE : <200- 239 ----- HIGH RISK: >240 >200 Not Available [facility] (Lab) [address] [place], [address], 04/02/2023 12:50:08 04/02/20 23 04/02/2023 LIPID PANEL triglyceride s 94 mg/dL 0-150 NIH DARSHAN NSUS REPOR T RECOM MENDA TION FOR TRIGL YCERI LATOSHA: ADULT CHILD LOW RISK: <150 ----- BODER LINE: 150-1 99 ----- HIGH RISK: >200 ----- Not Available [facility] (Lab) [address] [place], [address], 04/02/2023 12:50:08 04/02/20 23 04/02/2023 LIPID PANEL HDL cholesterol 46 mg/dL 40- Not Available [facility] (Lab) [address] [place], [address], 04/02/2023 12:50:08 04/02/20 23 04/02/2023 LIPID PANEL [...] NOT BE REPOR DAVID. Not Available [facility] (Lab) [address] [place], [address], 04/02/2023 12:50:08 04/02/20 23 04/02/2023 IRON/ TIBC PANEL total iron binding capacity 315 mcg/d L 265-47 5 Not Available [facility] (Lab) [address] [place], [address], 04/02/2023 12:56:19 04/02/20 23 04/02/2023 IRON/ TIBC PANEL % transferrin saturation 19 % 20-55 low Not Available [facility] (Lab) [address] [place], [address], 04/02/2023 12:56:19 04/02/20 23 04/02/2023 IRON/ TIBC PANEL unsaturated iron bind capacity 256 mcg/d L 126-38 2 Not Available [facility] (Lab) [address] [place], [address], 04/02/2023 12:56:19 04/02/20 23 04/02/2023 IRON/ TIBC PANEL iron 59 mcg/d L 42-175 Not Available [facility] (Lab) [address] [place], [address], 04/02/2023 12:56:19 04/02/2004/02/2023 VITAM IN D 25-HY DROXY vd25oh 38.2 NG/mL 30-100 Vitam in D Statu s: Defic ient: <20 ng/mL Insuf ficie nt: 20-29 ng/mL Suffi cient : 30-10 0 ng/mL Not Available [facility] (Lab) [address] [place], [address], 04/02/2023 13:01:41 04/02/2004/02/2023 T4 FREE free T4 0.67 NG/dL 0.78-2 .19 low Not Available [facility] (Lab) [address] [place], [address], 04/02/2023 13:07:19 04/02/2004/02/2023 TSH thyroid-stim ulating hormone 33.200 uIU/m L 0.465- 4.680 high Not Available [facility] (Lab) [address] [place], [address], 04/02/2023 13:22:03 04/02/20 23 04/02/2023 LIZBET TIN ferritin 66 NG/mL 6.24-1 37 Not Available [facility] (Lab) [address] [place], [address], 04/02/2023 13:22:22 04/02/20 23 04/02/2023 VITAM IN B12 (NICOLE GERTRUDE ) vb12 380 pg/mL 239-93 1 Not Available [facility] (Lab) [address] [place], [address], 04/02/2023 13:53:06 04/02/20 23 04/02/2023 FOLAT E, SERUM /PLAS MA folate 9.96 NG/mL 2.76-2 0.0 Not Available [facility] (Lab) [address] [place], [address], 04/02/2023 13:53:10 12/20/19 25 12/19/2024 CBC/C OMPLE TE BLD COUNT W/DIF F white blood cells 8.3 x10'3 /uL 4.2-10 .8 Not Available [facility] (Lab) [address] [place], [address], 12/19/2024 14:58:01 12/20/19 25 12/19/2024 CBC/C OMPLE TE BLD COUNT W/DIF F red blood cells 4.67 x10'6 /uL 3.80-5 .20 Not Available [facility] (Lab) [address] [place], [address], 12/19/2024 14:58:01 12/20/19 25 12/19/2024 CBC/C OMPLE TE BLD COUNT W/DIF F hemoglobin 14.0 g/dL 12.0-1 5.6 Not Available [facility] (Lab) [address] [place], [address], 12/19/2024 14:58:01 12/20/19 25 12/19/2024 CBC/C OMPLE TE BLD COUNT W/DIF F hematocrit 42.0 % 35.7-4 5.7 Not Available [facility] (Lab) [address] [place], [address], 12/19/2024 14:58:01 12/20/19 25 12/19/2024 CBC/C OMPLE TE BLD COUNT W/DIF F mean red cell volume 89.9 fL 82.0-9 9.0 Not Available [facility] (Lab) [address] [place], [address], 12/19/2024 14:58:01 12/20/19 25 12/19/2024 CBC/C OMPLE TE BLD COUNT W/DIF F mean red cell hemoglobin 30.0 pg 27.0-3 3.0 Not Available [facility] (Lab) [address] [place], [address], 12/19/2024 14:58:01 12/20/19 25 12/19/2024 CBC/C OMPLE TE BLD COUNT W/DIF F mean RBC HGB concentratio n 33.3 g/dL 31.0-3 6.0 Not Available [facility] (Lab) [address] [place], [address], 12/19/2024 14:58:01 12/20/19 25 12/19/2024 CBC/C OMPLE TE BLD COUNT W/DIF F red cell distribution width 14.4 % 11.8-1 5.5 Not Available [facility] (Lab) [address] [place], [address], 12/19/2024 14:58:01 12/20/19 25 12/19/2024 CBC/C OMPLE TE BLD COUNT W/DIF F platelets 346 x10'3 /uL 150-40 0 Not Available [facility] (Lab) [address] [place], [address], 12/19/2024 14:58:01 12/20/19 25 12/19/2024 CBC/C OMPLE TE BLD COUNT W/DIF F mean platelet volume 10.7 fL 9.0-12 .4 Not Available [facility] (Lab) [address] [place], [address], 12/19/2024 14:58:01 12/20/19 25 12/19/2024 CBC/C OMPLE TE BLD COUNT W/DIF F neutrophils 64.0 % 39.0-7 2.0 Not Available [facility] (Lab) [address] [place], [address], 12/19/2024 14:58:01 12/20/19 25 12/19/2024 CBC/C OMPLE TE BLD COUNT W/DIF F lymphocytes 24.8 % 16.0-4 7.0 Not Available [facility] (Lab) [address] [place], [address], 12/19/2024 14:58:01 12/20/19 25 12/19/2024 CBC/C OMPLE TE BLD COUNT W/DIF F monocytes 6.0 % 5.0-12 .0 Not Available [facility] (Lab) [address] [place], [address], 12/19/2024 14:58:01 12/20/19 25 12/19/2024 CBC/C OMPLE TE BLD COUNT W/DIF F eosinophils 4.0 % 1.0-7. 0 Not Available [facility] (Lab) [address] [place], [address], 12/19/2024 14:58:01 12/20/19 25 12/19/2024 CBC/C OMPLE TE BLD COUNT W/DIF F basophils 1.0 % 0.0-2. 0 Not Available [facility] (Lab) [address] [place], [address], 12/19/2024 14:58:01 12/20/19 25 12/19/2024 CBC/C OMPLE TE BLD COUNT W/DIF F immature granulocytes 0.2 % 0.00-0 .50 Not Available [facility] (Lab) [address] [place], [address], 12/19/2024 14:58:01 12/20/19 25 12/19/2024 CBC/C OMPLE TE BLD COUNT W/DIF F neutrophils, absolute count 5.30 x10'3 /uL 1.5-8. 0 Not Available [facility] (Lab) [address] [place], [address], 12/19/2024 14:58:01 12/20/19 25 12/19/2024 CBC/C OMPLE TE BLD COUNT W/DIF F lymphocytes, absolute count 2.05 x10'3 /uL 1.07-3 .43 Not Available [facility] (Lab) [address] [place], [address], 12/19/2024 14:58:01 12/20/19 25 12/19/2024 CBC/C OMPLE TE BLD COUNT W/DIF F monocytes, absolute count 0.50 x10'3 /uL 0.29-0 .99 Not Available [facility] (Lab) [address] [place], [address], 12/19/2024 14:58:01 12/20/19 25 12/19/2024 CBC/C OMPLE TE BLD COUNT W/DIF F eosinophils, absolute count 0.33 x10'3 /uL 0.02-0 .53 Not Available [facility] (Lab) [address] [place], [address], 12/19/2024 14:58:01 12/20/19 25 12/19/2024 CBC/C OMPLE TE BLD COUNT W/DIF F basophils, absolute count 0.08 x10'3 /uL 0.01-0 .08 Not Available [facility] (Lab) [address] [place], [address], 12/19/2024 14:58:01 12/20/19 25 12/19/2024 CBC/C OMPLE TE BLD COUNT W/DIF F immature granulocytes ,absolute 0.02 x10'3 /uL 0.00-0 .05 Not Available [facility] (Lab) [address] [place], [address], 12/19/2024 14:58:01 12/20/19 25 12/19/2024 CBC/C OMPLE TE BLD COUNT W/DIF F nucleated red blood cells 0.0 % -0 Not Available [facility] (Lab) [address] [facility] [place], [address], 12/19/2024 14:58:01 12/20/19 25 12/19/2024 CBC/C OMPLE TE BLD COUNT W/DIF F NRBC# 0.00 x10'3 /uL Not Available [facility] (Lab) [address] [place], [address], 12/19/2024 14:58:01 12/20/19 25 12/19/2024 COMPR EHENS KOKO METAB OLIC PANEL sodium 140 mmol/ L 137-14 5 Not Available [facility] (Lab) [address] [place], [address], 12/19/2024 14:59:10 12/20/19 25 12/19/2024 COMPR EHENS KOKO METAB OLIC PANEL potassium 4.4 mmol/ L 3.5-5. 1 Not Available [facility] (Lab) [address] [place], [address], 12/19/2024 14:59:10 12/20/19 25 12/19/2024 COMPR EHENS KOKO METAB OLIC PANEL chloride 108 mmol/ L 98-107 high Not Available [facility] (Lab) [address] [place], [address], 12/19/2024 14:59:10 12/20/19 25 12/19/2024 COMPR EHENS KOKO METAB OLIC PANEL carbon dioxide 27 mmol/ L 22-30 Not Available [facility] (Lab) [address] [place], [address], 12/19/2024 14:59:10 12/20/19 25 12/19/2024 COMPR EHENS KOKO METAB OLIC PANEL anion gap 9.4 mmol/ L 14-22 low Not Available [facility] (Lab) [address] [place], [address], 12/19/2024 14:59:10 12/20/19 25 12/19/2024 COMPR EHENS KOKO METAB OLIC PANEL glucose 101 mg/dL 70-99 high Not Available [facility] (Lab) [address] [place], [address], 12/19/2024 14:59:10 12/20/19 25 12/19/2024 COMPR EHENS KOKO METAB OLIC PANEL BUN 9 mg/dL 8-19 Not Available [facility] (Lab) [address] [place], [address], 12/19/2024 14:59:10 12/20/19 25 12/19/2024 COMPR EHENS KOKO METAB OLIC PANEL creatinine 1.06 mg/dL 0.66-1 .25 Not Available [facility] (Lab) [address] [place], [address], 12/19/2024 14:59:10 12/20/19 25 12/19/2024 COMPR EHENS KOKO METAB OLIC PANEL GFR >60 Refer ence Range : [place] GFR Healt hy Adult : >60 [...] calcu lator is avail able on the [facility] websi te: https ://ww w.kid desi.o rg/pr ofess ional s/kdo qi/gf r_cal culat or Not Available [facility] (Lab) [address] [place], [address], 12/19/2024 14:59:10 12/20/19 25 12/19/2024 COMPR EHENS KOKO METAB OLIC PANEL alkaline phosphatase 412 U/L 38-126 high Not Available [facility] (Lab) [address] [place], [address], 12/19/2024 14:59:10 12/20/19 25 12/19/2024 COMPR EHENS KOKO METAB OLIC PANEL alanine aminotransfe rase >750 U/L 0-35 high Not Available [facility] (Lab) [address] [place], [address], 12/19/2024 14:59:10 12/20/19 25 12/19/2024 COMPR EHENS KOKO METAB OLIC PANEL aspartate aminotransfe rase 626 U/L 15-37 high Not Available [facility] (Lab) [address] [place], [address], 12/19/2024 14:59:10 12/20/19 25 12/19/2024 COMPR EHENS KOKO METAB OLIC PANEL bilirubin, total 2.30 mg/dL 0.20-1 .30 high Not Available [facility] (Lab) [address] [place], [address], 12/19/2024 14:59:10 12/20/19 25 12/19/2024 COMPR EHENS KOKO METAB OLIC PANEL calcium 9.7 mg/dL 8.4-10 .2 Not Available [facility] (Lab) [address] [place], [address], 12/19/2024 14:59:10 12/20/19 25 12/19/2024 COMPR EHENS KOKO METAB OLIC PANEL total protein 7.8 g/dL 6.3-8. 2 Not Available [facility] (Lab) [address] [place], [address], 12/19/2024 14:59:10 12/20/19 25 12/19/2024 COMPR EHENS KOKO METAB OLIC PANEL albumin 4.7 g/dL 3.4-5. 0 Not Available [facility] (Lab) [address] [place], [address], 12/19/2024 14:59:10 12/20/19 25 12/19/2024 COMPR EHENS KOKO METAB OLIC PANEL globulin 3.1 g/dL 2.6-4. 2 Not Available [facility] (Lab) [address] [place], [address], 12/19/2024 14:59:10 12/20/19 25 12/19/2024 COMPR EHENS KOKO METAB OLIC PANEL A/G ratio 1.5 ratio 1.0-2. 0 Not Available [facility] (Lab) [address] [place], [address], 12/19/2024 14:59:10 12/20/19 25 12/19/2024 LIPAS E SERUM lipase 96 U/L 23-300 Not Available [facility] (Lab) [address] [place], [address], 12/19/2024 14:59:13 12/22/19 25 12/21/2024 CBC/C OMPLE TE BLD COUNT W/DIF F white blood cells 7.5 x10'3 /uL 4.2-10 .8 Not Available [facility] (Lab) [address] [place], [address], 12/21/2024 11:11:52 12/22/19 25 12/21/2024 CBC/C OMPLE TE BLD COUNT W/DIF F red blood cells 4.62 x10'6 /uL 3.80-5 .20 Not Available [facility] (Lab) [address] [place], [address], 12/21/2024 11:11:52 12/22/19 25 12/21/2024 CBC/C OMPLE TE BLD COUNT W/DIF F hemoglobin 13.8 g/dL 12.0-1 5.6 Not Available [facility] (Lab) [address] [place], [address], 12/21/2024 11:11:52 12/22/19 25 12/21/2024 CBC/C OMPLE TE BLD COUNT W/DIF F hematocrit 42.5 % 35.7-4 5.7 Not Available [facility] (Lab) [address] [place], [address], 12/21/2024 11:11:52 12/22/19 25 12/21/2024 CBC/C OMPLE TE BLD COUNT W/DIF F mean red cell volume 92.0 fL 82.0-9 9.0 Not Available [facility] (Lab) [address] [place], [address], 12/21/2024 11:11:52 12/22/19 25 12/21/2024 CBC/C OMPLE TE BLD COUNT W/DIF F mean red cell hemoglobin 29.9 pg 27.0-3 3.0 Not Available [facility] (Lab) [address] [place], [address], 12/21/2024 11:11:52 12/22/19 25 12/21/2024 CBC/C OMPLE TE BLD COUNT W/DIF F mean RBC HGB concentratio n 32.5 g/dL 31.0-3 6.0 Not Available [facility] (Lab) [address] [place], [address], 12/21/2024 11:11:52 12/22/19 25 12/21/2024 CBC/C OMPLE TE BLD COUNT W/DIF F red cell distribution width 14.6 % 11.8-1 5.5 Not Available [facility] (Lab) [address] [place], [address], 12/21/2024 11:11:52 12/22/19 25 12/21/2024 CBC/C OMPLE TE BLD COUNT W/DIF F platelets 322 x10'3 /uL 150-40 0 Not Available [facility] (Lab) [address] [place], [address], 12/21/2024 11:11:52 12/22/19 25 12/21/2024 CBC/C OMPLE TE BLD COUNT W/DIF F mean platelet volume 10.6 fL 9.0-12 .4 Not Available [facility] (Lab) [address] [place], [address], 12/21/2024 11:11:52 12/22/19 25 12/21/2024 CBC/C OMPLE TE BLD COUNT W/DIF F neutrophils 54.2 % 39.0-7 2.0 Not Available [facility] (Lab) [address] [place], [address], 12/21/2024 11:11:52 12/22/19 25 12/21/2024 CBC/C OMPLE TE BLD COUNT W/DIF F lymphocytes 32.9 % 16.0-4 7.0 Not Available [facility] (Lab) [address] [place], [address], 12/21/2024 11:11:52 12/22/19 25 12/21/2024 CBC/C OMPLE TE BLD COUNT W/DIF F monocytes 6.4 % 5.0-12 .0 Not Available [facility] (Lab) [address] [place], [address], 12/21/2024 11:11:52 12/22/19 25 12/21/2024 CBC/C OMPLE TE BLD COUNT W/DIF F eosinophils 5.0 % 1.0-7. 0 Not Available [facility] (Lab) [address] [place], [address], 12/21/2024 11:11:52 12/22/19 25 12/21/2024 CBC/C OMPLE TE BLD COUNT W/DIF F basophils 1.2 % 0.0-2. 0 Not Available [facility] (Lab) [address] [place], [address], 12/21/2024 11:11:52 12/22/19 25 12/21/2024 CBC/C OMPLE TE BLD COUNT W/DIF F immature granulocytes 0.3 % 0.00-0 .50 Not Available [facility] (Lab) [address] [place], [address], 12/21/2024 11:11:52 12/22/19 25 12/21/2024 CBC/C OMPLE TE BLD COUNT W/DIF F neutrophils, absolute count 4.08 x10'3 /uL 1.5-8. 0 Not Available [facility] (Lab) [address] [place], [address], 12/21/2024 11:11:52 12/22/19 25 12/21/2024 CBC/C OMPLE TE BLD COUNT W/DIF F lymphocytes, absolute count 2.48 x10'3 /uL 1.07-3 .43 Not Available [facility] (Lab) [address] [place], [address], 12/21/2024 11:11:52 12/22/19 25 12/21/2024 CBC/C OMPLE TE BLD COUNT W/DIF F monocytes, absolute count 0.48 x10'3 /uL 0.29-0 .99 Not Available [facility] (Lab) [address] [place], [address], 12/21/2024 11:11:52 12/22/19 25 12/21/2024 CBC/C OMPLE TE BLD COUNT W/DIF F eosinophils, absolute count 0.38 x10'3 /uL 0.02-0 .53 Not Available [facility] (Lab) [address] [place], [address], 12/21/2024 11:11:52 12/22/19 25 12/21/2024 CBC/C OMPLE TE BLD COUNT W/DIF F basophils, absolute count 0.09 x10'3 /uL 0.01-0 .08 high Not Available [facility] (Lab) [address] [place], [address], 12/21/2024 11:11:52 12/22/19 25 12/21/2024 CBC/C OMPLE TE BLD COUNT W/DIF F immature granulocytes ,absolute 0.02 x10'3 /uL 0.00-0 .05 Not Available [facility] (Lab) [address] [place], [address], 12/21/2024 11:11:52 12/22/19 25 12/21/2024 CBC/C OMPLE TE BLD COUNT W/DIF F nucleated red blood cells 0.0 % -0 Not Available [facility] (Lab) [address] [place], [address], 12/21/2024 11:11:52 12/22/19 25 12/21/2024 CBC/C OMPLE TE BLD COUNT W/DIF F NRBC# 0.00 x10'3 /uL Not Available [facility] (Lab) [address] [place], [address], 12/21/2024 11:11:52 12/22/19 25 12/21/2024 COMPR EHENS KOKO METAB OLIC PANEL sodium 139 mmol/ L 137-14 5 Not Available [facility] (Lab) [address] [place], [address], 12/21/2024 11:23:07 12/22/19 25 12/21/2024 COMPR EHENS KOKO METAB OLIC PANEL potassium 4.4 mmol/ L 3.5-5. 1 Not Available [facility] (Lab) [address] [place], [address], 12/21/2024 11:23:07 12/22/19 25 12/21/2024 COMPR EHENS KOKO METAB OLIC PANEL chloride 107 mmol/ L 98-107 Not Available [facility] (Lab) [address] [place], [address], 12/21/2024 11:23:07 12/22/19 25 12/21/2024 COMPR EHENS KOKO METAB OLIC PANEL carbon dioxide 25 mmol/ L 22-30 Not Available [facility] (Lab) [address] [place], [address], 12/21/2024 11:23:07 12/22/19 25 12/21/2024 COMPR EHENS KOKO METAB OLIC PANEL anion gap 11.4 mmol/ L 14-22 low Not Available [facility] (Lab) [address] [place], [address], 12/21/2024 11:23:07 12/22/19 25 12/21/2024 COMPR EHENS KOKO METAB OLIC PANEL glucose 137 mg/dL 70-99 high Not Available [facility] (Lab) [address] [place], [address], 12/21/2024 11:23:07 12/22/19 25 12/21/2024 COMPR EHENS KOKO METAB OLIC PANEL BUN 13 mg/dL 8-19 Not Available [facility] (Lab) [address] [place], [address], 12/21/2024 11:23:07 12/22/19 25 12/21/2024 COMPR EHENS KOKO METAB OLIC PANEL creatinine 1.10 mg/dL 0.66-1 .25 Not Available [facility] (Lab) [address] [place], [address], 12/21/2024 11:23:07 12/22/19 25 12/21/2024 COMPR EHENS KOKO METAB OLIC PANEL GFR 59 Refer ence Range : [place] GFR Healt hy Adult : >60 [...] or ethni c subgr oups, such as [facility] nics. Outsi de the valid ated [...] calcu lator is avail able on the F websi te: https ://neto w.jose m weeks.o rg/pr ofess ional s/kdo qi/gf r_cal culat or Not Available [facility] (Lab) [address] [place], [address], 12/21/2024 11:23:07 12/22/19 25 12/21/2024 COMPR EHENS KOKO METAB OLIC PANEL alkaline phosphatase 445 U/L 38-126 high Not Available [facility] (Lab) [address] [place], [address], 12/21/2024 11:23:07 12/22/19 25 12/21/2024 COMPR EHENS KOKO METAB OLIC PANEL alanine aminotransfe rase 594 U/L 0-35 high Not Available [facility] (Lab) [address] [place], [address], 12/21/2024 11:23:07 12/22/19 25 12/21/2024 COMPR EHENS KOKO METAB OLIC PANEL aspartate aminotransfe rase 156 U/L 15-37 high Not Available [facility] (Lab) [address] [place], [address], 12/21/2024 11:23:07 12/22/19 25 12/21/2024 COMPR EHENS KOKO METAB OLIC PANEL bilirubin, total 1.00 mg/dL 0.20-1 .30 Not Available [facility] (Lab) [address] [place], [address], 12/21/2024 11:23:07 12/22/19 25 12/21/2024 COMPR EHENS KOKO METAB OLIC PANEL calcium 9.7 mg/dL 8.4-10 .2 Not Available [facility] (Lab) [address] [place], [address], 12/21/2024 11:23:07 12/22/19 25 12/21/2024 COMPR EHENS KOKO METAB OLIC PANEL total protein 7.7 g/dL 6.3-8. 2 Not Available [facility] (Lab) [address] [place], [address], 12/21/2024 11:23:07 12/22/19 25 12/21/2024 COMPR EHENS KOKO METAB OLIC PANEL albumin 4.6 g/dL 3.4-5. 0 Not Available [facility] (Lab) [address] [place], [address], 12/21/2024 11:23:07 12/22/19 25 12/21/2024 COMPR EHENS KOKO METAB OLIC PANEL globulin 3.1 g/dL 2.6-4. 2 Not Available [facility] (Lab) [address] [place], [address], 12/21/2024 11:23:07 12/22/19 25 12/21/2024 COMPR EHENS KOKO METAB OLIC PANEL A/G ratio 1.5 ratio 1.0-2. 0 Not Available [facility] (Lab) [address] [place], [address], 12/21/2024 11:23:07 12/22/19 25 12/21/2024 LIPAS E SERUM lipase 348 U/L 23-300 high Not Available [facility] (Lab) [address] [place], [address], 12/21/2024 11:23:15 12/26/19 25 12/25/2024 CBC/C OMPLE TE BLD COUNT W/DIF F white blood cells 7.2 x10'3 /uL 4.2-10 .8 Not Available [facility] (Lab) [address] [place], [address], 12/25/2024 11:14:03 12/26/19 25 12/25/2024 CBC/C OMPLE TE BLD COUNT W/DIF F red blood cells 4.61 x10'6 /uL 3.80-5 .20 Not Available [facility] (Lab) [address] [place], [address], 12/25/2024 11:14:03 12/26/19 25 12/25/2024 CBC/C OMPLE TE BLD COUNT W/DIF F hemoglobin 13.8 g/dL 12.0-1 5.6 Not Available [facility] (Lab) [address] [place], [address], 12/25/2024 11:14:03 12/26/19 25 12/25/2024 CBC/C OMPLE TE BLD COUNT W/DIF F hematocrit 41.9 % 35.7-4 5.7 Not Available [facility] (Lab) [address] [place], [address], 12/25/2024 11:14:03 12/26/19 25 12/25/2024 CBC/C OMPLE TE BLD COUNT W/DIF F mean red cell volume 90.9 fL 82.0-9 9.0 Not Available [facility] (Lab) [address] [place], [address], 12/25/2024 11:14:03 12/26/19 25 12/25/2024 CBC/C OMPLE TE BLD COUNT W/DIF F mean red cell hemoglobin 29.9 pg 27.0-3 3.0 Not Available [facility] (Lab) [address] [place], [address], 12/25/2024 11:14:03 12/26/19 25 12/25/2024 CBC/C OMPLE TE BLD COUNT W/DIF F mean RBC HGB concentratio n 32.9 g/dL 31.0-3 6.0 Not Available [facility] (Lab) [address] [place], [address], 12/25/2024 11:14:03 12/26/19 25 12/25/2024 CBC/C OMPLE TE BLD COUNT W/DIF F red cell distribution width 14.0 % 11.8-1 5.5 Not Available [facility] (Lab) [address] [place], [address], 12/25/2024 11:14:03 12/26/19 25 12/25/2024 CBC/C OMPLE TE BLD COUNT W/DIF F platelets 306 x10'3 /uL 150-40 0 Not Available [facility] (Lab) [address] [place], [address], 12/25/2024 11:14:03 12/26/19 25 12/25/2024 CBC/C OMPLE TE BLD COUNT W/DIF F mean platelet volume 10.5 fL 9.0-12 .4 Not Available [facility] (Lab) [address] [place], [address], 12/25/2024 11:14:03 12/26/19 25 12/25/2024 CBC/C OMPLE TE BLD COUNT W/DIF F neutrophils 60.0 % 39.0-7 2.0 Not Available [facility] (Lab) [address] [place], [address], 12/25/2024 11:14:03 12/26/19 25 12/25/2024 CBC/C OMPLE TE BLD COUNT W/DIF F lymphocytes 28.1 % 16.0-4 7.0 Not Available [facility] (Lab) [address] [place], [address], 12/25/2024 11:14:03 12/26/19 25 12/25/2024 CBC/C OMPLE TE BLD COUNT W/DIF F monocytes 6.7 % 5.0-12 .0 Not Available [facility] (Lab) [address] [place], [address], 12/25/2024 11:14:03 12/26/19 25 12/25/2024 CBC/C OMPLE TE BLD COUNT W/DIF F eosinophils 3.8 % 1.0-7. 0 Not Available [facility] (Lab) [address] [place], [address], 12/25/2024 11:14:03 12/26/19 25 12/25/2024 CBC/C OMPLE TE BLD COUNT W/DIF F basophils 1.1 % 0.0-2. 0 Not Available [facility] (Lab) [address] [place], [address], 12/25/2024 11:14:03 12/26/19 25 12/25/2024 CBC/C OMPLE TE BLD COUNT W/DIF F immature granulocytes 0.3 % 0.00-0 .50 Not Available [facility] (Lab) [address] [place], [address], 12/25/2024 11:14:03 12/26/19 25 12/25/2024 CBC/C OMPLE TE BLD COUNT W/DIF F neutrophils, absolute count 4.31 x10'3 /uL 1.5-8. 0 Not Available [facility] (Lab) [address] [place], [address], 12/25/2024 11:14:03 12/26/19 25 12/25/2024 CBC/C OMPLE TE BLD COUNT W/DIF F lymphocytes, absolute count 2.02 x10'3 /uL 1.07-3 .43 Not Available [facility] (Lab) [address] [place], [address], 12/25/2024 11:14:03 12/26/19 25 12/25/2024 CBC/C OMPLE TE BLD COUNT W/DIF F monocytes, absolute count 0.48 x10'3 /uL 0.29-0 .99 Not Available [facility] (Lab) [address] [place], [address], 12/25/2024 11:14:03 12/26/19 25 12/25/2024 CBC/C OMPLE TE BLD COUNT W/DIF F eosinophils, absolute count 0.27 x10'3 /uL 0.02-0 .53 Not Available [facility] (Lab) [address] [place], [address], 12/25/2024 11:14:03 12/26/19 25 12/25/2024 CBC/C OMPLE TE BLD COUNT W/DIF F basophils, absolute count 0.08 x10'3 /uL 0.01-0 .08 Not Available [facility] (Lab) [address] [place], [address], 12/25/2024 11:14:03 12/26/19 25 12/25/2024 CBC/C OMPLE TE BLD COUNT W/DIF F immature granulocytes ,absolute 0.02 x10'3 /uL 0.00-0 .05 Not Available [facility] (Lab) [address] [place], [address], 12/25/2024 11:14:03 12/26/19 25 12/25/2024 CBC/C OMPLE TE BLD COUNT W/DIF F nucleated red blood cells 0.0 % -0 Not Available [facility] (Lab) [address] [place], [address], 12/25/2024 11:14:03 12/26/19 25 12/25/2024 CBC/C OMPLE TE BLD COUNT W/DIF F NRBC# 0.00 x10'3 /uL Not Available [facility] (Lab) [address] [place], [address], 12/25/2024 11:14:03 12/26/19 25 12/25/2024 COMPR EHENS KOKO METAB OLIC PANEL sodium 139 mmol/ L 137-14 5 Not Available [facility] (Lab) [address] [place], [address], 12/25/2024 11:17:33 12/26/19 25 12/25/2024 COMPR EHENS KOKO METAB OLIC PANEL potassium 4.3 mmol/ L 3.5-5. 1 Not Available [facility] (Lab) [address] [place], [address], 12/25/2024 11:17:33 12/26/19 25 12/25/2024 COMPR EHENS KOKO METAB OLIC PANEL chloride 110 mmol/ L 98-107 high Not Available [facility] (Lab) [address] [place], [address], 12/25/2024 11:17:33 12/26/19 25 12/25/2024 COMPR EHENS KOKO METAB OLIC PANEL carbon dioxide 25 mmol/ L 22-30 Not Available [facility] (Lab) [address] [place], [address], 12/25/2024 11:17:33 12/26/19 25 12/25/2024 COMPR EHENS KOKO METAB OLIC PANEL anion gap 8.3 mmol/ L 14-22 low Not Available [facility] (Lab) [address] [place], [address], 12/25/2024 11:17:33 12/26/19 25 12/25/2024 COMPR EHENS KOKO METAB OLIC PANEL glucose 114 mg/dL 70-99 high Not Available [facility] (Lab) [address] [place], [address], 12/25/2024 11:17:33 12/26/19 25 12/25/2024 COMPR EHENS KOKO METAB OLIC PANEL BUN 12 mg/dL 8-19 Not Available [facility] (Lab) [address] [place], [address], 12/25/2024 11:17:33 12/26/19 25 12/25/2024 COMPR EHENS KOKO METAB OLIC PANEL creatinine 1.01 mg/dL 0.66-1 .25 Not Available [facility] (Lab) [address] [place], [address], 12/25/2024 11:17:33 12/26/19 25 12/25/2024 COMPR EHENS KOKO METAB OLIC PANEL GFR >60 Refer ence Range : [place] GFR Healt hy Adult : >60 [...] calcu lator is avail able on the [facility] websi te: https ://neto weeks.nikita rg/pr ofess ional s/kdo qi/gf r_cal culat or Not Available [facility] (Lab) [address] [place], [address], 12/25/2024 11:17:33 12/26/19 25 12/25/2024 COMPR EHENS KOKO METAB OLIC PANEL alkaline phosphatase 259 U/L 38-126 high Not Available [facility] (Lab) [address] [place], [address], 12/25/2024 11:17:33 12/26/19 25 12/25/2024 COMPR EHENS KOKO METAB OLIC PANEL alanine aminotransfe rase 185 U/L 0-35 high Not Available [facility] (Lab) [address] [place], [address], 12/25/2024 11:17:33 12/26/19 25 12/25/2024 COMPR EHENS KOKO METAB OLIC PANEL aspartate aminotransfe rase 40 U/L 15-37 high Not Available [facility] (Lab) [address] [place], [address], 12/25/2024 11:17:33 12/26/19 25 12/25/2024 COMPR EHENS KOKO METAB OLIC PANEL bilirubin, total 0.70 mg/dL 0.20-1 .30 Not Available [facility] (Lab) [address] [place], [address], 12/25/2024 11:17:33 12/26/19 25 12/25/2024 COMPR EHENS KOKO METAB OLIC PANEL calcium 9.1 mg/dL 8.4-10 .2 Not Available [facility] (Lab) [address] [place], [address], 12/25/2024 11:17:33 12/26/19 25 12/25/2024 COMPR EHENS KOKO METAB OLIC PANEL total protein 7.6 g/dL 6.3-8. 2 Not Available [facility] (Lab) [address] [place], [address], 12/25/2024 11:17:33 12/26/19 25 12/25/2024 COMPR EHENS KOKO METAB OLIC PANEL albumin 4.6 g/dL 3.4-5. 0 Not Available [facility] (Lab) [address] [place], [address], 12/25/2024 11:17:33 12/26/19 25 12/25/2024 COMPR EHENS KOKO METAB OLIC PANEL globulin 3.0 g/dL 2.6-4. 2 Not Available [facility] (Lab) [address] [place], [address], 12/25/2024 11:17:33 12/26/19 25 12/25/2024 COMPR EHENS KOKO METAB OLIC PANEL A/G ratio 1.5 ratio 1.0-2. 0 Not Available [facility] (Lab) [address] [place], [address], 12/25/2024 11:17:33 12/26/19 25 12/25/2024 LIPAS E SERUM lipase 325 U/L 23-300 high Not Available [facility] (Lab) [address] [place], [address], 12/25/2024 11:17:36 10/26/19 24 10/26/2023 US, hyste alma delia pingo gram No observ ation record ed. [email or web address] [address], [address], 10/27/2023 11:37:12 04/09/20 24 04/09/2024 US, obste tric, 1st trime ster, singl e gesta tion No observ ation record ed. [email or web address] [address], [place], [address], 04/09/2024 15:00:07 12/19/19 25 12/16/2024 CT, abdom en + pelvi s, w/ contr ast No observ ation record ed. BARCODE Not Available 2024 11:14:36 12/20/19 25 12/19/2024 US, abdom en, limit ed [facility] [address] [place] [address] Patien t Name: CYRIL BECK RA Access ion #: [id number] Sex: F : 1995 7 Dictat ed By: Elijah Mancini Attend ing Physic naomie: [facility] Physic naomie: RUTH BROWNING Exam Date: 2024 [...] are normal . [facility] s: Page 1 [facility] [address] [place] [address] Patien t Name: CYRIL BECK Access ion #: [id number] Sex: F : 1995 7 Dictat ed By: Elijah Mancini Attend ing Physic naomie: JEANMARIE DE LA CRUZ [facility] Physic naomie: RUTH BROWNING Exam Date: 2024 [...] at 2024 12:07: 21 PM Page [address] (Imaging) [address] [place], [address], 12/21/2024 09:35:31 12/21/19 25 12/20/2024 MRI, abdom en, w/o contr ast [facility] [address] [facility] [place] [address] [phone] Patien t Name: CYRIL BECK Access ion #: [id number] Sex: F : 1995 9 Dictat ed By: Dalton Wilburn Attend ing Physic naomie: RUTH BROWNING O Orderi ng Physic naomie: RUTH BROWNING O Exam Date: 2024 11:42 AM Exam Name: MRI ABDOME N WO Admitt ing Diagno sis(es ): MRI Abdome n, MRCP withou t IV Contra st Exam Date: 2024 11:42 AM Compar dariana: None Histor y: abdomi nal pain Techni que: Multis equenc e multip lanar MRI images were obtain ed of the [facility] . MRCP includ ing 3D SPACE, Radial [...] Grossl y unrema rkable . Page 1 [facility] [address] [facility] [place] [address] [phone] Patien t Name: CYRIL BECK Access ion #: [id number] Sex: F : 1995 9 Dictat [...] 2024 22:42: 48 PM Page 2 [email or web address] [facility] (Imaging) [address] [place], [address], 12/21/2024 09:36:25 Result Notes Documentation Provider Name and Address Organization Details Recorded Time Mri, Abdomen, W/o Contrast : [facility] [address] [place] [address] Patient Name: DRAKE BECK Sex: F : [...] hydronephrosis. Visualized bowel: Grossly unremarkable. Page 1 [facility] [address] [facility] [place] [address] Patient Name: DRAKE BECK Sex: F : 1995 Dictated By: Dalton Wilburn Attending Physician: AKILAH CALZADA Ordering Physician: ZHENG CARROLL Exam Date: 12/20/2024 11:42 AM Exam Name: MRI ABDOMEN WO Admitting Diagnosis(es): Vasculature: Unremarkable. Lymphadenopathy: No evidence for lymphadenopathy. Ascites: Absent. Musculoskeletal: Bone marrow signal is normal. IMPRESSION: 1. Unremarkable MRI of the abdomen. No biliary obstruction. HS:Y. Page 2 ANTONIO Sosa, [facility] 12/21/2024 09:36:25 Problems Name Problem SNOMED Code Status Onset Date Resolution Date Notes Provider Name and Address Organization Details Recorded Time Sprain of deltoid ligament of ankle 00324332 Active Yahaira Key APRN [address], [address] [place] [address], [address] , [facility] 4 07:55:32 Cobalamin deficiency 828645873 Active 2021 Yahaira Key APRN [address], [place], [address] , [employer] 4 07:58:13 Vitamin D deficiency 35738013 Active 2021 Yahaira Key APRN [address], [address], [place], [address] , [employer] 4 07:58:36 Prediabetes 058222016 Active 2022 Yahaira Key APRN [address], [address], [place], [address] , [facility] 4 07:58:30 Sleep apnea 48786661 Active 2022 Yahaira Key APRN [address], [address], [place], [address] , [employer] 4 07:58:32 Hypothyroidis m 42219540 Active 2022 Yahaira Key APRN [address], [address], [place], [address] , [employer] 4 07:58:16 Insulin resistance 185229989 Active 2022 Yahaira Key APRN [address], [address], [place], [address] , [employer] 4 07:58:19 Iron deficiency 34793272 Active 2022 Yahaira Key APRN [address], [address], [place], [address] , [employer] 4 07:58:21 Mixed anxiety and depressive disorder 653344788 Active 2022 Yahaira Key APRN [address], [address], [place], [address] , [employer] 4 07:58:25 Obesity 065875073 Active 2022 Yahaira Key APRN [address], [address], [place], [address] , [employer] 4 07:58:27 Unable to concentrate 36380643 Active 2022 Not Available [facility] 3 00:20:58 Right upper quadrant pain 138854320 Active 2024 Zheng pulido MD [address], [address], [place], [address] , [employer] 5 11:51:43 Right upper quadrant pain 265025700 Active 2024 Zheng pulido MD [address], [address], [place], [address] , [facility] [email or web address] 5 11:51:57 Cholelithiasi s without obstruction 48653447 Active 2024 Zheng pulido MD [address] [address], [place], [address] , [facility] [employer] [facility] 5 14:54:07 Problem Notes None recorded. Procedures Surgical History Date Name Laterality Status Provider Name and Address Organization Details Recorded Time endometrectomy of urinary bladder completed Not Available [facility] 12/02/2022 02:37:39 Imaging Results None recorded. Procedure Notes None recorded. Medical Equipment None Reported. Allergies Allergen ID Allergen Name Allergen Category Reaction Reaction Severity Criticality Documentation Date Start Date Code Code System Note Provider Name and Address Organization Details Recorded Time 86817 No known allergy (situatio n) Not available Not available Not available Not available 02/14/2024 [id number] [id number] SNANTOINETTE Key APRN [address] [address], [place], [address], [facility] [employer] [facility] 4 07:55:52 No known drug allergies [...] propionate 50 mcg/actuati on nasal spray,suspe nsion [place] 2 sprays every day by intranasa l [...] Heart rate Body temperature Body weight Systolic And Diastolic Provider Name and Address Organization Details Last Updated DateTime 3 35.5 kg/m2 162.56 cm 98 % 98 % 94 /min 97.5 [degF] 94027.6 2 g 132/84 mm[Hg] Not Available [employer] 3 02:39:56 Date Recorded Heart rate Body temperature Respiratory rate Systolic And Diastolic Provider Name and Address Organization Details Last Updated DateTime 12/19/2024 98 /min 98 [degF] 14 /min 120/80 mm[Hg] Narda Arechiga [employer] [facility] [email or web address] 5 11:31:43 Date Recorded Body height Body mass index (BMI) Body weight Oxygen saturation Oxygen saturation in Arterial blood by Pulse oximetry Provider Name and Address Organization Details Last Updated DateTime 12/19/2024 162.56 cm 42.2 kg/m2 652162. 72 g 98 % 98 % ANTONIO Sosa [employer] [facility] [email or web address] 5 11:21:58 Date Recorded Body height Body mass index (BMI) Body weight Body temperature Heart rate Oxygen saturation Oxygen saturation in Arterial blood by Pulse oximetry Systolic And Diastolic Provider Name and Address Organization Details Last Updated DateTime 4 162.56 cm 42.2 kg/m2 933601. 72 g 97.9 [degF] 97 /min 97 % 97 % 118/72 mm[Hg] Josi Jaimes MA [facility] 4 08:58:30 Date Recorded Body height Body mass index (BMI) Body weight Body temperature Heart rate Oxygen saturation Oxygen saturation in Arterial blood by Pulse oximetry Systolic And Diastolic Provider Name and Address Organization Details Last Updated DateTime 3 162.56 cm 34 kg/m2 81580.2 9 g 97.9 [degF] 102 /min 98 % 98 % 116/74 mm[Hg] Evelyne Vo MA [employer] 3 10:00:46 Date Recorded Body mass index (BMI) Body height Body weight Provider Name and Address Organization Details Last Updated DateTime 05/25/2022 35 kg/m2 162.56 cm 70971.84 g Not Available [facility] 12/02/2022 02:40:01 Social History Question Answer Notes LastModified by Organizat ion Details LastModified Time Tobacco Smoking Status Never Smoker Not Available [facility] 12/02/2022 02:30:32 What Is Your Level Of Caffeine Consumption? Moderate MIGRATION.21782 [id number] Information not available 12/02/2022 How Much Tobacco Do You Chew? None MIGRATION.47232 61336 Information not available 12/02/2022 In The 14 Days Before Symptom Onset, Have You Had Close Contact With A Laboratory-confir med COVID-19 While That Case Was Ill? No MIGRATION.72682 89421 Information not available 12/02/2022 In The 14 Days Before Symptom Onset, Have You Had Close Contact With A Person Who Is Under Investigation For COVID-19 While That Person Was Ill? No MIGRATION.02538 27866 Information not available 12/02/2022 What Type Of Diet Are You Following? REGULAR MIGRATION.86056 50799 Information not available 12/02/2022 Which Illicit Or Recreational Drugs Have You Used? None MIGRATION.19136 62169 Information not available 12/02/2022 What Is The Highest Grade Or Level Of School You Have Completed Or The Highest Degree You Have Received? [id number] MIGRATION.10575 54036 Information not available 12/02/2022 Have There Been Any Changes To Your Family Or Social Situation? No MIGRATION.86467 98680 Information not available 12/02/2022 What Is The Fluoride Status Of Your Home? Unknown MIGRATION.29560 60480 Information not available 12/02/2022 Are There Any Guns Present In Your Home? Yes MIGRATION.10571 54592 Information not available 12/02/2022 Do You Use Insect Repellent Routinely? No MIGRATION.66021 61383 Information not available 12/02/2022 Where Do You Live? SingleLevelHouse MIGRATION.43577 31882 Information not available 12/02/2022 What Was The Date Of Your Most Recent Tobacco Screening? 01/20/2024 Information not available 01/20/2024 How Many Children Do You Have? 0 Information not available 01/20/2024 Do You Have Any Pets? Yes MIGRATION.39304 17553 Information not available 12/02/2022 What Is Your Relationship Status? Information not available 01/20/2024 Do You Use Your Seat Belt Or Car Seat Routinely? Yes MIGRATION.58832 86970 Information not available 12/02/2022 Are You Sexually Active? Yes Information not available 01/20/2024 Do You Have Smoke And Carbon Monoxide Detectors In Your Home? Yes MIGRATION.86611 37345 Information not available 12/02/2022 Are You Passively Exposed To Smoke? Yes MIGRATION.76893 65426 Information not available 12/02/2022 Are There Any Smokers In Your House? Yes MIGRATION.95201 07771 Information not available 12/02/2022 Do You Use Sunscreen Routinely? No MIGRATION.52440 39686 Information not available 12/02/2022 Have You Recently Traveled Abroad? No MIGRATION.47319 41930 Information not available 12/02/2022 Do You Have Any Dietary Restrictions? No MIGRATION.21940 56798 Information not available 12/02/2022 Sex: Female Functional Status Question Answer Note LastModified by Pylbaizat ion Details LastModified Time Do you use any illicit or recreational drugs? No Information not available 01/20/2024 Do you or have you ever used any other forms of tobacco or nicotine? No MIGRATION.318184 1220 Information not available 12/02/2022 What is your level of alcohol consumption? None MIGRATION.466903 6952 Information not available 12/02/2022 Do you or have you ever used smokeless tobacco? 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 Never used electronic cigarettes MIGRATION.582739 2911 Information not available 12/02/2022 What is your exercise level? Occasional walking MIGRATION.166633 3361 Information not available 12/02/2022 Mental Status Question Answer Note LastModified by Organizat ion Details LastModified Time Do you feel stressed (tense, restless, nervous, or anxious, or unable to sleep at night)? [id number] MIGRATION.[id number] 6 Information not available 12/02/2022 Family History Relationship Description Onset Age of this Age Resolved Age Notes LastModified by Organization Details LastModified Time Maternal Grandfather Diabetes mellitus MIGRATION.458 [id number] Not available 12/02/2022 02:37:42 Maternal Grandmother Diabetes mellitus MIGRATION.738 [id number] Not available 12/02/2022 02:37:42 Paternal Grandfather Diabetes mellitus MIGRATION.688 7021561 Not available 12/02/2022 02:37:42 Paternal Grandmother Diabetes mellitus MIGRATION.270 [id number] Not available 12/02/2022 02:37:42 Notes:MOTHER-KIDNEY Medical History [...] HAVE YOU BEEN HOSPITALIZED OR SEEN IN [facility] IN THE PAST YEAR ? N [...] Key APRN [address], [address], [place], [address], [facility] [employer] [facility] 02/14/2024 07:56:12 COVID-19, mRNA, LNP-S, PF, 30 mcg/0.3 mL dose 1 completed Yahaira Key APRN [address], [address], [place], [address], [employer] [facility] [employer] [facility] 02/14/2024 07:56:12 COVID-19, mRNA, LNP-S, PF, 30 mcg/0.3 mL dose 1 completed Yahaira Key APRN [address], [address], [place], [address], [facility] [employer] [facility] 02/14/2024 07:56:12 Influenza, split virus, quadrivalent, preservative 0 completed Not Available [facility] 04/06/2023 00:20:58 IPV 7 completed Yahaira Key APRN [address], [address], [place], [address], [facility] [employer] [facility] 02/14/2024 07:56:12 IPV 7 completed Yahaira Key APRN [address], [address], [place], [address], [facility] [employer] [facility] 02/14/2024 07:56:12 IPV 8 completed Yahaira Key, [employer] [address], [address], [place], [address], [facility] 02/14/2024 07:56:12 IPV 7 completed Yahaira Key, [employer] [address], [address], [place], [address], [facility] - [facility] 02/14/2024 07:56:12 IPV 2 completed Yahaira Key, [employer] [address], [address], [place], [address], [facility] - [facility] 02/14/2024 07:56:12 MMR 8 completed Yahaira Key, [employer] [address], [address], [place], [address], [facility] - [facility] 02/14/2024 07:56:12 MMR 2 completed Yahaira Key APRN [address], [address], [place], [address], [facility] - [facility] 02/14/2024 07:56:12 COVID-19, mRNA, LNP-S, PF, 30 mcg/0.3 mL dose 1 completed Yahaira Key APRN [address], [address], [place], [address], [facility] - [facility] 02/14/2024 07:56:12 COVID-19, mRNA, LNP-S, PF, 30 mcg/0.3 mL dose 1 completed Yahaira Key APRN [address], [address], [place], [address], [place] [facility] 02/14/2024 07:56:12 COVID-19, mRNA, LNP-S, PF, 30 mcg/0.3 mL dose 1 completed Yahaira Key APRN [address], [address], [place], [address], [facility] 02/14/2024 07:56:12 influenza, unspecified formulation 9 completed Yahaira Key APRN [address], [address], [place], [address], [facility] 02/14/2024 07:56:12 Tdap 0 completed Yahaira Key APRN [address], [address], [place], [address], [facility] 02/14/2024 07:56:12 Tdap 7 completed Yahaira Key APRN [address], [address], [place], [address], [facility] 02/14/2024 07:56:12 HPV, quadrivalent 0 completed Yahaira Key APRN [address], [address], [place], [address], [facility] 02/14/2024 07:56:12 HPV, quadrivalent 9 completed Yahaira Key APRN [address], [address], [place], [address], [facility] 02/14/2024 07:56:12 HPV, quadrivalent 9 completed Yahaira Key APRN [address], [address], [place], [address], [facility] 02/14/2024 07:56:12 Hep B, adolescent or pediatric 7 completed Yahaira Key APRN [address], [address], [place], [address], [facility] 02/14/2024 07:56:12 Hep B, adolescent or pediatric 7 completed Yahaira Key APRN [address], [place], [address], [facility] [facility] 02/14/2024 07:56:12 Hep B, adolescent or pediatric 7 completed Yahaira Key APRN [address], [address], [place], [address], [facility] [employer] [facility] 02/14/2024 07:56:12 Hib (PRP-OMP) 7 completed Yahaira Key APRN [address], [address], [place], [address], [facility] [email or web address] [facility] 02/14/2024 07:56:12 Hib (PRP-OMP) 8 completed Yahaira Key APRN [address], [address], [place], [address], [facility] [email or web address] [facility] 02/14/2024 07:56:12 Hib (PRP-OMP) 7 completed Yahaira Key APRN [address], [place], [address], [facility] [employer] [facility] 02/14/2024 07:56:13 Hib (PRP-OMP) 7 completed Yahaira Key APRN [address], [place], [address], [facility] [employer] [facility] 02/14/2024 07:56:13 meningococcal MCV4P 4 completed Yahaira Key APRN [address], [place], [address], [facility] [employer] [facility] 02/14/2024 07:56:13 DTaP [address], [place], [address], [facility] [email or web address] [facility] 02/14/2024 07:56:13 DTaP 7 completed Yahaira Key APRN [address], [place], [address], [facility] [employer] [facility] 02/14/2024 07:56:13 DTaP [address], [place], [address], [facility] [employer] [facility] 02/14/2024 07:56:13 DTaP 7 completed Yahaira Key, [employer] [address], [place], [address], [facility] [employer] [facility] [employer] [facility] 02/14/2024 07:56:13 DTaP 2 completed Yahaira Key, [employer] [address], [place], [address], [facility] [employer] [facility] [employer] [facility] 02/14/2024 07:56:13 Influenza, split virus, quadrivalent, PF 7 completed Yahaira Key, [employer] [address], [place], [address], [facility] [employer] [facility] [employer] [facility] 02/14/2024 07:56:13 Influenza, split virus, quadrivalent, PF 4 completed Yahaira Key, [employer] [address], [place], [address], [facility] [employer] [facility] [employer] [facility] 02/14/2024 07:56:13 Influenza, split virus, quadrivalent, PF 8 completed Yahaira Key, [employer] [address], [place], [address], [facility] [employer] [facility] [employer] [facility] 02/14/2024 07:56:13 Past Encounters Encounter ID Performer Location Encounter Start Date Encounter Closed Date Diagnosis/Indication Diagnosis SNOMED-CT Code Diagnosis ICD10 Code Diagnosis IMO Codes Diagnosis Note [id number] Sadi gant MD [facility] [address] [place] [address] 12/30/2020 00:00:00 12/30/2020 17:10:29 [id number] Sadi gant MD [facility] [address] [place] [address] 01/27/2021 00:00:00 01/27/2021 16:57:28 [id number] MD ARNOLDO Ort[facility] [address] [place] [address] 02/21/2021 00:00:00 02/21/2021 14:00:05 [id number] MD BETTINA OrtizS[facility] [address] [place] [address] 03/21/2021 00:00:00 03/21/2021 17:57:49 [id number] MD BETTINA GayleS[facility] [address] [place] [address] 05/15/2021 00:00:00 05/15/2021 17:57:01 [id number] MD BETTINA [facility] [address] [facility] [address] [place] [address] 05/29/2021 00:00:00 05/30/2021 13:07:44 [id number] MD BETTINA [facility] [address] [place] [address] 06/16/2021 00:00:00 06/16/2021 21:29:29 [id number] MD BETTINA [facility] [address] [facility] [address] [place] [address] 07/24/2021 00:00:00 07/25/2021 13:11:45 [id number] MD BETTINA [facility] [address] [place] [address] 09/16/2021 00:00:00 09/16/2021 19:13:23 [id number] MD BETTINA [facility] [address] [facility] [address] [place] [address] 11/21/2021 00:00:00 11/21/2021 15:00:47 [id number] MD ARNOLDO [facility] [address] [place] [address] 12/26/2021 00:00:00 12/26/2021 11:12:25 [id number] MD BETTINA [facility] [address] [place] [address] 02/02/2022 00:00:00 02/02/2022 14:33:52 [id number] MD BETTINA [facility] [address] [facility] [address] [place] [address] 02/09/2022 00:00:00 02/09/2022 15:40:50 [id number] MD BETTINA [facility] [address] [address] 03/09/2022 00:00:00 03/09/2022 15:29:51 [id number] SANDEE Dillon S[facility] Internal [facility] [address] [facility] [address] [place] [address] 04/24/2022 00:00:00 04/24/2022 13:27:36 [id number] Sadi gant MD [facility] Internal [facility] [address] [facility] [address] [place] [address] 05/25/2022 00:00:00 05/25/2022 13:31:16 [id number] MD BETTINA [facility] Internal [facility] [address] [facility] [address] [place] [address] 10/08/2022 00:00:00 10/08/2022 10:33:54 [id number] Sadi gant MD [facility] Internal [facility] [address] [address] 02/11/2023 09:46:36 02/11/2023 10:21:13 Sleep apnea 00723867 G47.30 has decided not to do in lab study Hypothyroidism 10344633 E03.9 on levothyrox ine Insulin resistance 17681 5000 E88.81 on metformin, ozempic pt is aware of side effects, risks, benefitspt denies any personal or family history of MEN II or MTC, denies and personal history of pancreatit ispt knows to call the office if any severe n/v or abdominal pain Iron deficiency 95744150 E61.1 on supplement Vitamin D deficiency 347 46418 E55.9 on supplement Cobalamin deficiency 190 488160 E53.8 on supplement Mixed anxi ety and depressive disorder 227671234 F41.8 now following psychiatry - Tatum at Dr. Juares's officeon sertraline , wellbutrin , abilifycal l office if any change in mood or behaviorco ntinue counseling with therapist (Nura Maldonado) Obesity 353848617 E66.9 recommend healthy, well balanced mealsfocus on [...] to diet drinks Adult heal th examination 200973387 Z00.00 Hyperlipid emia screening 879667458 Z13.220 Diabetes m ellitus screening 785697568 Z13.1 Depression screening 171 746829 Z13.31 [id number] Sadi gant MD [facility] Internal [facility] [address] [facility] [address] [place] [address] 01/20/2024 08:48:33 01/20/2024 09:16:59 Hypothyroidism 29343846 E03.9 Cobalamin deficiency 190 798725 E53.8 Insulin resistance 89865 5000 E88.819 Iron deficiency 45765011 E61.1 Vitamin D deficiency 347 32589 E55.9 Obesity 401617123 E66.9 [id number] Zheng pulido MD [facility] General Surgery [address] [facility] [address] [place] [address] 12/19/2024 11:19:16 12/25/2024 16:25:22 Right upper quadrant pain 260587645 R10.11 Significan t tenderness to RUQ on [...] wishes to proceed. Cholelithi asis without obstruction 44912435 K80.20 Health Concerns Section Related Observation LastModified by Organization Detai ls LastModified Time None Recorded Concern Status LastModified by Organization Details LastModified Time None Recorded Advance Directives Directive None Recorded Payers Insurance Date Sequence Insurance Name Policy Number Policy Osorio Covered Member ID Osorio Member ID Guarantor Name 12/19/2024 [facility] Drake Gant Attila SELF SELF Drake Beck 12/19/2024 1 [facility] [id number] Drake Zafarin [id number] Drake Zafarin 01/20/2024 1 [place] [id number] Yosef Beck [id number] Drake Gant Raudel 02/02/2025 1 [place] [id number] Yosef Beck [id number] Drake Beck Notes Date Note Type Note Provider Name and Address Organization Details Recorded Time 02/11/2023 text/html Drake presents today for follow up. She is [...] is due for labs. SANDEE Dillon [address], [address], [place], [address], [facility] [email or web address] 02/11/2023 10:28:56 01/20/2024 text/html Drake presents today to establish care. She states that [...] due for labs. Yahaira Key APRN [address], [address], [place], [address], [email or web address] 01/20/2024 09:15:04 12/19/2024 text/html Patient presents to [...] ago. Not . Zheng Carroll MD [address], [address], [place], [address], [employer] [facility] 12/19/2024 14:54:13 OBGyn Episode No OBEpisode recorded.
--- OUTSIDE RECORDS SUMMARY | 2025-08-02 12:45 | XMS_ITS | Clinical Summary ---
Author Organization [facility] Address [address] [place] [address] Care Team Providers Care Finishing Machine Operator Automatic Name Role Phone Unknown, Notinfile Unavailable Unavailable Yahaira Key NP Primary Care Provider [phone] Andrea Martino MD Unavailable [phone] Allergies No known active allergies Medications ARIPiprazole [...] deficiency 10/01/2022 Fall 11/12/2019 Overview (11/12/2019): 11/11/2019 [facility]; Pt is Resp Therapy at NICU, [...] on file Legal Sex Female 4:24 AM STEREOTYPER Gender Identity Female 01/24/2024 2:19 PM CDT [...] - PCV) 2015 Covid-19 Vaccine (5 - 2024-2 6 season) 2025 09/18/2021, 09/17/2021, 10/28/2020, Additional history exists Influenza Vaccine (#1) 2025 0, 07/03/2019, 07/13/2018, Additional history exists DTaP/Tdap/Td Vaccine (8 - Td or Tdap) 12/28/2029 12/29/2019, 05/02/2007, 05/29/2002, Additional history exists Hepatitis B Screening Completed 07/13/1997 , 1996, 1996 HPV Vaccines Completed 12/06/2009, 06/04, 04/02/2009 Insurance [employer] [facility] H[employer]/PPO Address: [address] [place] [id number] [employer] [facility] H[employer]/PPO Address: [address] [address] [place] [address] [facility] [employer] [facility] [facility] H[employer]/PPO Address: [facility] [address] [place] [address] [place] [address] [facility] [id number] Care Teams Finishing Machine Operator Automatic Relationship Specialty Start Date End Date Yahaira Key NP PCP - General Family Medicine 02/16/24 Unknown, Notinfile 01/03/24 Andrea Martino MD [address] [address] Referring Physician Obstetrics and Gynecology 03/03/24
== END 2025-08-02 11:36 | disposition home or self-care (01) ==
LOC: ANHIMG 11:37
PROVIDERS: PCP Nurse Practitioner Family; Visit Provider Nurse Practitioner Family
DX: M54.50 Low back pain, unspecified (principal); M79.606 Pain in leg, unspecified
CPT/HCPCS: 72100

== ENCOUNTER 2025-08-20 10:32 | Outpatient (CLI) | payer BC, SELFPAY ==
--- NOTE | ~2025-08-20 | MR_ITS ---
EXAMINATION: MR lumbar spine wo con DATE: 08/20/2025 11:16 INDICATION: Low back pain TECHNIQUE: Magnetic resonance imaging (MRI) of the lumbar spine was performed without intravenous contrast. Sequences included sagittal T2-weighted FSE, sagittal T2-weighted FS FSE, sagittal T1-weighted FSE, and axial T2-weighted FSE. COMPARISON: Lumbar spine radiographs dated 08/02/2025 FINDINGS: 3 mm retrolisthesis L4 on L5. Alignment is otherwise normal. Vertebral body heights are normal. Normal marrow signal. Disc desiccation and mild disc height loss with annular fissure at L4-L5. Remaining discs are normal with normal height and signal. The conus medullaris terminates at L1-L2. There is normal signal in the caudal spinal cord. Paravertebral soft tissues are unremarkable. The following disc levels are specifically discussed: T12-L1: The disc does not extend beyond the endplate margin. There is minimal bilateral facet joint osteoarthritis. There is no neural foraminal stenosis. There is no central canal stenosis. L1-L2: The disc does not extend beyond the endplate margin. There is mild left and minimal right facet joint osteoarthritis. There is no neural foraminal stenosis. There is no central canal stenosis. L2-L3: The disc does not extend beyond the endplate margin. There is normal bilateral facet joint osteoarthritis. There is no neural foraminal stenosis. There is no central canal stenosis. L3-L4: The disc does not extend beyond the endplate margin. There is mild bilateral facet joint osteoarthritis. There is no neural foraminal stenosis. There is no central canal stenosis. L4-L5: Disc is bulging. There is mild bilateral facet joint osteoarthritis. There is mild bilateral, left greater than right neural foraminal stenosis. There is mild central canal stenosis along with mild narrowing of the left and right lateral recesses. L5-S1: The disc does not extend beyond the endplate margin. There is minimal bilateral facet joint osteoarthritis. There is no neural foraminal stenosis. There is no central canal stenosis. IMPRESSION: 1. 2-3 mm retrolisthesis L4 on L5 with mild associated spondylosis. Minimal to mild facet osteoarthritis with normal discs throughout the remainder of the lumbar spine. Reviewed, dictated and finalized at location A. 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 2-3 mm retrolisthesis L4 on L5 with mild associated spondylosis. Minimal to mild facet osteoarthritis with normal discs throughout the remainder of the lum bar spine.
== END 2025-08-20 10:33 | disposition home or self-care (01) ==
LOC: ANHIMG 10:33
PROVIDERS: PCP Nurse Practitioner Family; Visit Provider Nurse Practitioner Family
DX: M43.16 Spondylolisthesis, lumbar region (principal); M47.896 Other spondylosis, lumbar region
CPT/HCPCS: 72148